=== PATIENT | male | born 1940 | race Caucasian/White ===

== ENCOUNTER → 2017-04-12 | Outpatient (CLI) | payer MEDICARE, BC ==
[2017-04-12 13:52] LABS: ALBUMIN 3.8 GM/DL (3.2-5.2); ALBUMIN/GLOBULIN RATIO 1.15 (1.00-1.93); ALKALINE PHOSPHATASE 47 U/L (45-117); ALT/SGPT 31 U/L (12-78); ANION GAP 8 MEQ/L (8-16); AST/SGOT 27 U/L (15-37); BILIRUBIN,TOTAL 0.5 MG/DL (0.2-1.0); BLOOD UREA NITROGEN 26 MG/DL (7-18); CARBON DIOXIDE LEVEL 30 MEQ/L (21-32); CHLORIDE LEVEL 103 MEQ/L (98-107); CHOLESTEROL LEVEL 147 MG/DL (<200); CREATININE FOR GFR 1.23 MG/DL (0.70-1.30); GLOMERULAR FILTRATION RATE > 60.0 (>42); GLUCOSE, FASTING 158 MG/DL (83-110); POTASSIUM SERUM 4.2 MEQ/L (3.5-5.1); SODIUM LEVEL 141 MEQ/L (136-145); TOTAL PROTEIN 7.1 GM/DL (6.4-8.2); TRIGLYCERIDES LEVEL 430 MG/DL (<150)
[2017-04-13 14:11] LABS: PSA TOTAL 1.1 ng/mL (0.0-4.0)
== END ==
LOC: M WUC 10:25
PROVIDERS: ATTEND Nurse Practitioner Family
DX: I10 Essential (primary) hypertension (principal); Z13.220 Encounter for screening for lipoid disorders; Z12.5 Encounter for screening for malignant neoplasm of prostate

== ENCOUNTER → 2018-04-29 | Outpatient (CLI) | payer MEDICARE, BC ==
[2018-04-29 13:43] LABS: BASO # 0.1 10^3/uL (0.0-0.2); BASO % 0.6 % (0.0-1.0); EOS # 0.4 10^3/uL (0.0-0.50); EOS % 4.3 % (0.0-3.0); HEMATOCRIT 40.7 % (42.0-52.0); HEMOGLOBIN 13.2 g/dl (13.5-17.5); IMMATURE GRANULOCYTE % 0.5 % (0-3.0); LYMPH # 2.1 10^3/uL (1.5-4.5); LYMPH % 24.1 % (24.0-44.0); MEAN CORPUSCULAR HEMOGLOBIN 31.3 pg (27.0-33.0); MEAN CORPUSCULAR HGB CONC 32.4 g/dl (32.0-36.5); MEAN CORPUSCULAR VOLUME 96.4 fl (80.0-96.0); MONO # 0.9 10^3/uL (0.0-0.8); MONO % 10.1 % (0.0-5.0); NEUTROPHILS # 5.3 10^3/uL (1.8-7.7); NEUTROPHILS % 60.4 % (36.0-66.0); PLATELET COUNT, AUTOMATED 147 10^3/uL (150-450); RED BLOOD COUNT 4.22 10^6/uL (4.30-6.10); RED CELL DISTRIBUTION WIDTH 14.7 % (11.5-14.5); WHITE BLOOD COUNT 8.8 10^3/uL (4.0-10.0)
[2018-04-29 14:04] LABS: ALBUMIN 3.8 GM/DL (3.2-5.2); ALBUMIN/GLOBULIN RATIO 1.12 (1.00-1.93); ALKALINE PHOSPHATASE 45 U/L (45-117); ALT/SGPT 23 U/L (12-78); ANION GAP 11 MEQ/L (8-16); AST/SGOT 19 U/L (7-37); BILIRUBIN,TOTAL 0.6 MG/DL (0.2-1.0); BLOOD UREA NITROGEN 22 MG/DL (7-18); CALCIUM LEVEL 9.6 MG/DL (8.8-10.2); CARBON DIOXIDE LEVEL 29 MEQ/L (21-32); CHLORIDE LEVEL 104 MEQ/L (98-107); CHOLESTEROL LEVEL 131 MG/DL (<200); CHOLESTEROL RISK RATIO 3.852 (<5); CREATININE FOR GFR 1.23 MG/DL (0.70-1.30); GLOMERULAR FILTRATION RATE > 60.0 (>42); GLUCOSE, FASTING 113 MG/DL (70-100); HDL CHOLESTEROL 34 MG/DL (>40); LDL CHOLESTEROL 55 MG/DL (<100); NON-HDL-C 97 MG/DL; POTASSIUM SERUM 3.9 MEQ/L (3.5-5.1); SODIUM LEVEL 144 MEQ/L (136-145); TOTAL PROTEIN 7.2 GM/DL (6.4-8.2); TRIGLYCERIDES LEVEL 208 MG/DL (<150)
[2018-04-29 15:57] LABS: ESTIMATED AVERAGE GLUCOSE 157 MG/DL (60-110); HEMOGLOBIN A1c 7.1 %
[2018-04-30 14:20] LABS: PSA TOTAL 1.3 ng/mL (0.0-4.0)
== END ==
LOC: M WUC 08:17
DX: E11.9 Type 2 diabetes mellitus without complications (principal); I10 Essential (primary) hypertension; Z12.5 Encounter for screening for malignant neoplasm of prostate; Z13.220 Encounter for screening for lipoid disorders
CPT/HCPCS: 80053

== ENCOUNTER → 2018-05-01 | Outpatient (CLI) | payer MEDICARE, BC | LOC: M RAD 09:41 | DX: M48.07 Spinal stenosis, lumbosacral region (principal) | CPT/HCPCS: 72131 ==

== ENCOUNTER 2019-07-22 01:23 | Inpatient (IN) | payer MEDICARE, BC ==
[~2019-07-22] VITALS: Ht 172.7 cm; Wt 101.2 kg
[2019-07-22] MEDS ORDERED: PREG75CA2 (01:55)
[2019-07-22] MEDS ORDERED: METO50TA7 PO (01:56)
[2019-07-22] MEDS ORDERED: TRAD5TAB PO (01:56)
[2019-07-22] MEDS ORDERED: FENO145T13 PO (01:56)
[2019-07-22] MEDS ORDERED: LANTINJ4 SQ (01:56)
[2019-07-22] MEDS ORDERED: LISI10TA4 PO (01:56)
[2019-07-22] MEDS ORDERED: ALLO100T PO (01:56)
[2019-07-22] MEDS ORDERED: FURO40TA2 PO (01:56)
[2019-07-22] MEDS ORDERED: GLIM4TAB3 PO (01:56)
[2019-07-22] MEDS ORDERED: SERT50TA29 PO (01:56)
[2019-07-22] MEDS ORDERED: LYRI75CA PO (01:56)
[2019-07-22] MEDS ORDERED: HYDR25TAB PO (01:56)
[2019-07-22] MEDS ORDERED: POTA10CA32 PO (01:56)
[2019-07-22] MEDS ORDERED: PRAD150C6 PO (01:56)
[2019-07-22] MEDS ORDERED: SPIR1CAP INH (01:56)
[2019-07-22] MEDS ORDERED: METOPROLOL TART 50 MG TAB PO ONE (05:30)
--- NOTE | 2019-07-22 05:43 | REPVR ---
PROCEDURE INFORMATION: Exam: CT Head Without Contrast Exam date and time: 07/22/2019 5:24 AM Age: 79 years old Clinical indication: Other: Ear problem; Additional info: CVA - nursing interventions must not delay CT TECHNIQUE: Imaging protocol: Computed tomography of the head without contrast. Radiation optimization: All CT scans at this facility use at least one of these dose optimization techniques: automated exposure control; mA and/or kV adjustment per patient size (includes targeted exams where dose is matched to clinical indication); or iterative reconstruction. Other technique: STROKE PROTOCOL was implemented. COMPARISON: No relevant prior studies available. FINDINGS: Brain: Diffuse moderate cerebral age related volume loss. Moderate patchy low attenuation in the white matter compatible with moderate chronic small vessel ischemic disease. No midline shift, mass, fluid collection, or evidence of hemorrhage. Loss of shankar-white differentiation in the right PATHOLOGY TECHNOLOGIST territory involving the medial right temporal lobe and occipital lobe, evidence of acute infarct. Ventricles: Ventricular enlargement proportional to volume loss. Bones/joints: Unremarkable. No acute fracture. Sinuses: Visualized sinuses are unremarkable. No fluid levels. Mastoid air cells: Visualized mastoid air cells are well aerated. Soft tissues: Unremarkable. IMPRESSION: Loss of shankar-white differentiation in the right PATHOLOGY TECHNOLOGIST territory involving the medial right temporal lobe and occipital lobe, evidence of acute infarct. ASSESSMENT: ASPECTS ([place] Stroke Program Early CT Score) is 10 Electronically signed by: Isaac Ontiveros On 07/22/2019 05:42:41 AM
[2019-07-22 05:57] LABS: BASO # 0.1 10^3/uL (0.0-0.2); BASO % 1.1 % (0.0-1.0); EOS # 0.3 10^3/uL (0.0-0.5); EOS % 3.3 % (0.0-3.0); HEMATOCRIT 42.9 % (42.0-52.0); HEMOGLOBIN 14.1 g/dl (13.5-17.5); LYMPH # 2.5 10^3/uL (1.5-5.0); MEAN CORPUSCULAR HEMOGLOBIN 31.7 pg (27.0-33.0); MEAN CORPUSCULAR HGB CONC 32.9 g/dl (32.0-36.5); MEAN CORPUSCULAR VOLUME 96.4 fl (80.0-96.0); MONO # 0.9 10^3/uL (0.0-0.8); MONO % 11.5 % (0.0-5.0); NEUTROPHILS # 4.3 10^3/uL (1.5-8.5); NEUTROPHILS % 52.9 % (36.0-66.0); PLATELET COUNT, AUTOMATED 128 10^3/uL (150-450); RED BLOOD COUNT 4.45 10^6/uL (4.30-6.10); WHITE BLOOD COUNT 8.2 10^3/uL (4.0-10.0)
[2019-07-22 06:04] LABS: INR 1.2; PROTHROMBIN TIME 14.9 SECONDS (11.8-14.0)
[2019-07-22 06:05] LABS: PARTIAL THROMBOPLASTIN TIME 31.9 SECONDS (25.0-38.4)
[2019-07-22] MEDS ORDERED: ASPIRIN 325 MG TAB PO ONE (06:15)
[2019-07-22 06:27] LABS: BLOOD UREA NITROGEN 22 MG/DL (7-18); CALCIUM LEVEL 9.5 MG/DL (8.8-10.2); CARBON DIOXIDE LEVEL 30 MEQ/L (21-32); CHLORIDE LEVEL 103 MEQ/L (98-107); CK-MB VALUE MASS 2.7 NG/ML (<3.6); CPK CREATINE PHOSPHOKINASE 202 U/L (39-308); CREATININE FOR GFR 1.21 MG/DL (0.70-1.30); GLOMERULAR FILTRATION RATE > 60.0 (>35); GLUCOSE, FASTING 117 MG/DL (70-100); MB/CK RELATIVE INDEX 1.34 (< OR =4); POTASSIUM SERUM 3.7 MEQ/L (3.5-5.1); SODIUM LEVEL 142 MEQ/L (136-145); TROPONIN I 0.05 NG/ML (< 0.10)
[2019-07-22] MEDS ORDERED: LABETALOL HCL 100 MG/20 ML VIAL IV STA (06:45)
[2019-07-22] MEDS: TIOTROPIUM INHALER/CAPSULE (SPIRIVA) INH SCH (08:00)
[2019-07-22] MEDS ORDERED: ASPI81TA26 PO (08:05)
[2019-07-22] MEDS ORDERED: VITA100066 PO (08:05)
[2019-07-22] MEDS ORDERED: MAGN400C PO (08:05)
--- NOTE | 2019-07-22 08:06 | REP ---
PORTABLE CHEST X-RAY: Single view. HISTORY: CVA. No comparison chest. FINDINGS: Monitoring electrodes are seen. A unipolar pacemaker is noted in the right heart via the left side. Moderate cardiomegaly is observed. There are linear opacities in the left perihilar region and in both bases consistent with fibrosis versus plate-like atelectasis. The thoracic aorta somewhat tortuous. Pulmonary vasculature is cephalized. No pleural effusion is seen. IMPRESSION: Linear opacities in both bases consistent with plate-like atelectasis versus fibrosis. Pacemaker. Cardiomegaly with vascular cephalization. Electronically Signed by Óscar Mitchell MD 07/22/2019 05:47 P
[2019-07-22] MEDS ORDERED: METOPROLOL TART 50 MG TAB PO SCH (09:00)
[2019-07-22] MEDS ORDERED: GLUCAGON FOR INJ 1 MG VIAL (J1610) SC PRN (10:00)
[2019-07-22] MEDS ORDERED: GLUCOSE 4 GM CHEW TABLET PO PRN (10:00)
[2019-07-22] MEDS ORDERED: DEXTROSE 50% 50 ML SYRINGE IV PRN (10:00)
[2019-07-22] MEDS: FUROSEMIDE 40 MG TAB PO SCH (10:12)
[2019-07-22] MEDS: PREGABALIN 75 MG CAP(LYRICA) PO SCH ×3 (10:12→20:28)
[2019-07-22] MEDS: allopurinoL 100 MG TAB PO SCH ×2 (10:12→20:28)
[2019-07-22] MEDS: lisinopriL 10 MG TAB PO SCH ×2 (10:12→20:27)
[2019-07-22] MEDS: MAGNESIUM OXIDE 400 MG TAB (MAG-OX) PO SCH ×2 (10:12→20:28)
[2019-07-22] MEDS: POTASSIUM CHLORIDE 10 MEQ SR TABLET PO SCH ×2 (10:13→20:27)
[2019-07-22] MEDS: hydroCHLOROthiazide 25 MG TAB PO SCH (10:13)
--- NOTE | 2019-07-22 11:04 | HPE ---
DATE OF ADMISSION: 07/22/2019 PRIMARY CARE PROVIDER: Dr. 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 HISTORY: Marko Fischer is an 79-year-old on Pradaxa for thromboembolic prophylaxis for atrial fibrillation. He was holding his Pradaxa in anticipation of a surgical procedure on his back in the coming week. Last night he developed the abrupt onset of a severe throbbing headache that felt "burning." He then found himself unable to use phone as his vision seemed to be affected by this. He knew that "things weren't right," but delayed presentation to the emergency room until this morning when he already had advance on CT scan of acute infarct in the distribution of the right posterior cerebral artery involving the medial right temporal lobe and occipital lobe. He has a history of atrial fibrillation. He was on Pradaxa for this. It was being held for his procedure. He has a history of hypertensive heart disease, type 2 diabetes, hyperlipidemia, abdominal aortic aneurysm, hyperlipidemia, gout and diabetic polyneuropathy. He also may have some chronic obstructive pulmonary disease (COPD) as he is on Spiriva. REVIEW OF SYSTEMS: No palpitations, chest pain or syncope. He denies focal weakness or hemisensory problems. SURGICAL HISTORY: Has a transpubic prostate operation 09/2010. He had colonoscopy by Dr. Roberts in 2014. He had a total left hip 2015. Pacemaker, date unknown. SOCIAL HISTORY: Nonsmoker. No excessive alcohol. Retired from [employer]. He was and then in March of 2010 he his high school [employer], which is a very sweet story he shared in great detail. FAMILY HISTORY: Father of heart disease. Mother of heart disease. He has some siblings with hypertension and diabetes. ALLERGIES: SULFA. MEDICATIONS: - allopurinol 100 mg twice a day - aspirin 81 mg daily - vitamin D 1000 units at bedtime - Pradaxa 150 mg twice a day - fenofibrate 145 mg at bedtime - furosemide 40 mg daily - glimepiride 4 mg twice a day - hydrochlorothiazide 25 mg daily - Lantus insulin 40 units at bedtime - Tradjenta 5 mg by mouth daily - lisinopril 10 mg twice a day - MagOx 400 mg twice a day - metoprolol tartrate 50 mg twice a day - potassium chloride 30 mEq twice a day - Lyrica 75 mg three times a day - sertraline 50 mg at bedtime - Spiriva one inhalation daily PHYSICAL EXAMINATION: Blood pressure 159/84, pulse 69, respiratory rate 16, afebrile. GENERAL APPEARANCE: Alert and conversant in no distress. No facial droop or weakness. Speech is fluent and well demonstrated. Pupils equal and reactive to light. Tympanic membranes and oropharynx benign. He has left visual field defect on direct confrontation. Lungs clear. Heart regular rate and rhythm, 1/6 systolic ejection murmur. Abdomen soft, nontender, no masses. Extremities no clubbing, cyanosis or edema. He has normal strength, reflexes and sensation in the upper and lower extremities. Telemetry showed paced rhythm or atrial fibrillation. LABS: White count 8.2, hemoglobin 14.1, platelets 128. Sodium 142, potassium 3.7, BUN 22, creatinine 1.2, glucose 117. Chest x-ray just showed some atelectasis and the pacemaker. CT of the brain showed acute stroke distribution in the right posterior cerebral artery as summarized above. No bleeding. IMPRESSION: 1. Stroke, probably embolic, acute onset associated with headache. The patient had been off his anticoagulant. The case has been discussed with Dr. Margarita Mcdonald, who will see the patient for neurological consultation. Advises holding of reinitiating anticoagulation until the repeat CT scan of the brain done later today shows no extension of the stroke or any bleeding into the area of stroke. Continue aspirin. Physical therapy has been ordered. He does have a visual field defect, which should prohibit driving until he is cleared after discharge. 2. Atrial fibrillation. His rate is controlled. Hold the Pradaxa for now. With the embolic event while holding Pradaxa, would advise bridging with Lovenox or other anticoagulant in the future should he have a procedure that requires holding his Pradaxa. 3. Hypertensive heart disease. Blood pressure goal is 140-180 in the acute stroke period. Medications have been ordered. 4. Hyperlipidemia. The patient is not on a statin. I do not see that it is listed as an allergy, including review of outpatient records that were available from a referral to the wound clinic a few years go. This stroke was probably embolic and not atherosclerotic. He does have a history of aortic aneurysm. Will start moderate intensity statin (age over 75) with atorvastatin 40 mg daily and we will discontinue his fenofibrate. 5. Diabetes. Reduce the dose of the basal insulin while on an enforced diabetic diet. Sliding scale insulin with coverage ordered. Hold his oral agents for now. Hypoglycemic protocol ordered. 6. History of gout. Continue allopurinol 100 mg twice a day. 7. History of abdominal aortic aneurysm. Apparently he has not had an ultrasound in the last year to monitor for this. Start statin therapy with atorvastatin. Ultrasound of the aorta ordered. 8. Diabetic polyneuropathy. Continue Lyrica and refill sertraline.
--- NOTE | 2019-07-22 11:21 | REP ---
CAROTID ULTRASOUND: Real-time ultrasound evaluation and duplex Doppler interrogation of the extracranial carotid vasculature is performed. There is mild plaquing and narrowing in both carotid bulbs extending into the internal and external carotid arteries. Luminal narrowing is less than 50%. There is no evidence of hemodynamically significant stenosis of either internal carotid artery. Normal flow velocities are seen. The vertebral arteries demonstrate normal direction of flow. RIGHT LEFT Peak systolic velocity ICA 59.6 cm/s 68.3 cm/s End diastolic velocity ICA 19.6 cm/s 21.2 cm/s Peak systolic velocity CCA 52.6 cm/s 53 cm/s Peak systolic velocity ECA 89.5 cm/s 126.6 cm/s ICA/CCA ratio 1.13 1.29 IMPRESSION: Bilateral luminal narrowing of the internal carotid arteries less than 50%. No evidence of hemodynamically significant stenosis. Electronically Signed by Neal Ngo MD 07/22/2019 11:12 A
--- NOTE | 2019-07-22 11:29 | REP ---
ULTRASOUND ABDOMINAL AORTA: Real-time sonographic evaluation of abdominal aorta performed. Study is limited due to patient body habitus and bowel gas. Maximum AP diameter of the proximal abdominal aorta is 3.2 cm. Abdominal aorta at the level of the renal arteries is not visualized. Just distal to that, maximum AP diameter is 3.0 cm. Distal abdominal aorta demonstrates maximum AP diameter at 3.8 cm and transverse 4.2 cm. Common iliac arteries are ectatic, right measuring 2.0 x 1.5 cm and left 2.1 x 1.7 cm. IMPRESSION: Mild aneurysmal dilatation distal abdominal aorta 3.8 x 4.2 cm. Ectatic common iliac arteries. Study limited due to patient body habitus and bowel gas. Electronically Signed by Neal Ngo MD 07/22/2019 07:57 P
[2019-07-22] MEDS: HumaLOG INSULIN (NovoLOG) PER UNIT SC SCH ×3 (13:38→20:29)
[2019-07-22 14:00] VITALS: BP 145/60
[2019-07-22] MEDS ORDERED: SLF 3 ML SYR IV PRN (15:00)
[2019-07-22 16:00] VITALS: BP 140/72
--- NOTE | 2019-07-22 16:43 | REP ---
CT brain: 07/22/2019. Indication: Stroke. Comparison: Earlier today. Technique: Unenhanced axial CT images of the brain were obtained from skull base to vertex. Findings: The right CONSUMER INSIGHT MANAGER infarction continues to evolve without hemorrhagic transformation or worsening mass effect. No new cortical infarctions are detected. Volume loss and sequelae of chronic microangiopathic ischemic disease are redemonstrated. There is no hydrocephalus or shift of the midline structures. Impression: Evolving right CONSUMER INSIGHT MANAGER infarction without hemorrhagic conversion or significant mass effect. Electronically Signed by Benedict Washington DO 07/22/2019 04:34 P
[2019-07-22 20:00] VITALS: BP 140/70
[2019-07-22] MEDS: SERTRALINE HCL 50 MG TAB PO SCH (20:27)
[2019-07-22] MEDS: VITAMIN D 1,000 INTERNATIONAL UNITS TABLET PO SCH (20:27)
[2019-07-22] MEDS: METOPROLOL TART 50 MG TAB PO SCH (20:28)
[2019-07-22] MEDS ORDERED: FENOFIBRATE 145 MG TAB (TRICOR) PO SCH (21:00)
[2019-07-22] MEDS ORDERED: LEVEMIR (INSULIN DETEMIR) 1 UNITS/0.01ML SC SCH (21:00)
[2019-07-22] MEDS ORDERED: ATORVASTATIN 20 MG TAB PO SCH (21:00)
[2019-07-22] MEDS: SLF 3 ML SYR IV SCH (22:32)
[2019-07-23] VITALS: BP 164/82
[2019-07-23 04:00] VITALS: BP 158/86
[2019-07-23] MEDS: SLF 3 ML SYR IV SCH ×3 (05:29→21:08)
[2019-07-23 05:56] LABS: HEMATOCRIT 39.9 % (42.0-52.0); HEMOGLOBIN 13.1 g/dl (13.5-17.5); MEAN CORPUSCULAR HEMOGLOBIN 31.9 pg (27.0-33.0); MEAN CORPUSCULAR HGB CONC 32.8 g/dl (32.0-36.5); MEAN CORPUSCULAR VOLUME 97.1 fl (80.0-96.0); PLATELET COUNT, AUTOMATED 130 10^3/uL (150-450); RED BLOOD COUNT 4.11 10^6/uL (4.30-6.10); WHITE BLOOD COUNT 8.8 10^3/uL (4.0-10.0)
[2019-07-23 06:01] LABS: BLOOD UREA NITROGEN 19 MG/DL (7-18); CALCIUM LEVEL 9.4 MG/DL (8.8-10.2); CARBON DIOXIDE LEVEL 31 MEQ/L (21-32); CHLORIDE LEVEL 103 MEQ/L (98-107); GLOMERULAR FILTRATION RATE > 60.0 (>35); GLUCOSE, FASTING 158 MG/DL (70-100); POTASSIUM SERUM 3.8 MEQ/L (3.5-5.1); SODIUM LEVEL 141 MEQ/L (136-145)
--- NOTE | 2019-07-23 08:17 | ECHO ---
DATE OF PROCEDURE: 07/22/2019 AGE: 79. GENDER: Male. HEIGHT: 68 inches. WEIGHT: 227 pounds. Body surface area 2.15 meters squared. LOCATION: Inpatient in the progressive care unit (PCU), room 3223. REFERRING PHYSICIAN: Dr. Jarek Martin. INDICATION: TIA - cardiac source of embolic material? MEASUREMENTS: 2-D measurements: RV - 5.2 cm LV - 6.2 cm Septum: 1.4 cm Posterior wall 1.4 cm Aortic root 3.6 cm LA - 5.6 cm LVEF of 45% Doppler measurements: AV - 1.9 meters per second LVOT - 1.0 meters per second LVOT diameter 2.1 cm MV-E 74 Early mitral deceleration time 193 milliseconds E prime medial 6.6, E prime lateral 5.7 Average E/E prime ratio 12/PCWP - 16.8 mmHg PV - 0.8 meters per second Pulmonary artery acceleration time 87 milliseconds RVSP 64 mmHg IVC - 2.6 cm COMMENT: Underlying atrial fibrillation with consistent ventricular paced rhythm. Paced QRS complexes with LVEDP configuration. M-mode and two-dimensional echocardiography was performed with pulsed, continuous wave, color flow and tissue Doppler studies. At least moderately dilated and symmetrically hypertrophied left ventricle with distal septal and apical akinesis related to right ventricular pacing but other wall motion was normal. At least mild impairment of global resting systolic function. Severely dilated left atrium with current estimated mean left atrial pressure mildly increased. Mild to moderately dilated right ventricle with slightly reduced free wall motion and Doppler evidence of severe pulmonary hypertension. Prominently dilated right atrium and inferior vena cava with reduced respiratory collapse in keeping with an elevated central venous pressure / right heart failure. Moderate aortic valvular sclerosis without stenosis and only trace insufficiency. Normal aortic dimensions. Moderate mitral annular calcification with slightly thickened mitral leaflets but adequate leaflet excursion and no posterior systolic buckling. Mild mitral insufficiency. Normal appearing tricuspid valve with severe tricuspid insufficiency. Pacing lead could be visualized traversing right heart structures. No separate intracardiac mass. No pericardial effusion. If a cardiac source of embolic material is seriously suspect, perhaps a transesophageal echocardiogram would be more useful. Alexis Ray MD [facility]
[2019-07-23] MEDS: allopurinoL 100 MG TAB PO SCH ×2 (08:43→20:23)
[2019-07-23] MEDS: HumaLOG INSULIN (NovoLOG) PER UNIT SC SCH ×4 (08:43→20:13)
[2019-07-23] MEDS: POTASSIUM CHLORIDE 10 MEQ SR TABLET PO SCH ×2 (08:43→20:23)
[2019-07-23] MEDS: MAGNESIUM OXIDE 400 MG TAB (MAG-OX) PO SCH ×2 (08:43→20:23)
[2019-07-23] MEDS: PREGABALIN 75 MG CAP(LYRICA) PO SCH ×3 (08:43→20:23)
[2019-07-23] MEDS: lisinopriL 10 MG TAB PO SCH ×2 (08:44→20:23)
[2019-07-23] MEDS: ASPIRIN 81 MG ENTERIC TAB PO SCH (08:44)
[2019-07-23] MEDS: hydroCHLOROthiazide 25 MG TAB PO SCH (08:44)
[2019-07-23] MEDS: METOPROLOL TART 50 MG TAB PO SCH ×2 (08:44→20:22)
[2019-07-23] MEDS: FUROSEMIDE 40 MG TAB PO SCH (08:45)
[2019-07-23] MEDS: TIOTROPIUM INHALER/CAPSULE (SPIRIVA) INH SCH (09:19)
[2019-07-23] MEDS: ACETAMINOPHEN 500 MG TAB PO PRN (09:41)
[2019-07-23 10:00] VITALS: BP 172/76
--- NOTE | 2019-07-23 10:17 | CR ---
DATE OF CONSULTATION: 07/22/2019 CONSULTATION REPORT FOR: Dr. Jarek Martin REASON FOR CONSULTATION: Acute ischemic stroke of the right posterior cerebral artery. The patient is an 79-year-old male who was on Pradaxa for treatment of atrial fibrillation. The patient had to stop Pradaxa within the last week for an upcoming surgery this for his lumbar spine. The patient unfortunately developed a sense of severe headache and buzzing in his ear. The patient states that he let his know how he was feeling. His states that he usually he is melodramatic and states that he has always having a stroke though he is not. The patient was taken via emergency medical services (EMS) to the hospital. In the hospital, the patient was evaluated and later was told that he was having some sort of visual field cut. Head CT was obtained which eventually showed that the stroke had already occurred resulting in a right posterior cerebral artery (BONE CHAR PULLER) territory stroke with left-sided homonymous hemianopsia. The patient unfortunately did not clearly identify stroke symptoms. EMS evaluation at his home, he states that told him that he less likely is having a stroke given a brief evaluation at that time. The patient was unable to receive tissue plasma activator (t-PA) due to the stroke being identified greater than four and a half hours later. The patient does have a history of type 2 diabetes, hyperlipidemia. He has a small abdominal aortic aneurysm. The patient was taking aspirin 81 mg daily it seems at home. His stroke is of reasonable size. Therefore, anticoagulation will not be started immediate. We will probably plan on repeating the head CT later at the end of the week and resuming anticoagulation at that time. In the meantime, the patient will remain on aspirin 81 mg daily. Both the patient, the patient's and daughter who is an employee of [employer] are aware that starting anticoagulation too soon may result in hemorrhagic conversion. At the present time, the patient denies any change in sensation or strength in the arms and legs. He denies any headache. He does have visual field loss which is pretty profound at this time. REVIEW OF SYSTEMS: A 14-point review of systems obtained and is negative except as per history of present illness (HPI). FAMILY HISTORY: Father and mother with heart disease. Siblings with hypertension and diabetes. ALLERGIES: SULFA. PRESENT MEDICATIONS: - aspirin 81 mg by mouth daily - Pradaxa 150 mg by mouth twice a day (the patient had this held within the last few days due to upcoming surgery) - allopurinol 100 mg by mouth twice a day - vitamin D 1000 units by mouth at bedtime - fenofibrate 145 mg by mouth at bedtime - furosemide 40 mg by mouth daily - glimepiride 4 mg by mouth twice a day - hydrochlorothiazide 25 mg by mouth daily - Lantus 40 units at bedtime - Tradjenta 5 mg daily - lisinopril 10 mg by mouth twice a day - magnesium oxide 400 mg by mouth twice a day - metoprolol tartrate 50 mg by mouth twice a day - potassium chloride 30 mEq by mouth twice a day - Lyrica 75 mg by mouth three times a day - sertraline 50 mg by mouth at bedtime - Spiriva inhaled daily PAST MEDICAL HISTORY: 1. Type 2 diabetes. 2. Hypertension. 3. Hyperlipidemia. PAST SURGICAL HISTORY: 1. History of transpubic prostate operation in September 2010. 2. Colonoscopy 2014. 3. Total hip replacement 2014. 4. Pacemaker placement. SOCIAL HISTORY: The patient denies use of tobacco, alcohol or illicit drugs. PHYSICAL EXAMINATION: Blood pressure is 140/72, pulse rate 72, respiratory rate is 18, temperature is 97.1 degrees Fahrenheit, oxygenation 93% on room air. Current height is 5 feet, 8 inches. Current weight is 103 kg. The patient is awake, alert, oriented to person, place and time. Speech, language, comprehension and repetition are intact. Pupils are both postsurgical. Extraocular movements are intact in all directions without nystagmus. The patient has significant visual field loss with left-sided homonymous hemianopsia. Sensation V1, V2, V3 is intact to light touch. No facial asymmetry to activation. Palate elevates symmetrically. Tongue is midline. No weakness of sternocleidomastoids bilaterally. Hearing is subjectively equal to finger rub. There is no pronator drift. Strength is 5/5 including bilateral deltoids, biceps, triceps, quadriceps, anterior tibialis, iliopsoas. Sensation is intact to light touch in all four extremities. Coordination without any gross ataxia or dysmetria. Gait deferred. ASSESSMENT: An 79-year-old male with sudden onset of severe headache with left-sided homonymous hemianopsia resulting from right posterior cerebral artery (BONE CHAR PULLER) arterial occlusion stroke. Stroke resulting in discontinuation of Pradaxa prior to upcoming surgery from known history of atrial fibrillation. PLAN: 1. Continue aspirin 81 mg by mouth daily. Continue Lipitor 40 mg by mouth daily, consider lower dosage in the future as the patient's cholesterol numbers were extremely well-controlled off of the medication. Recommend a repeat head CT at the end of the week. If stable then resumed Pradaxa for stroke prevention. Recommend waiting a few days given risk of hemorrhagic conversion given reasonable size of right posterior cerebral artery (BONE CHAR PULLER) territorial stroke involving the medial temporal lobe and occipital lobe on the right. 2. Optimize diabetes, hypertension, and hyperlipidemia. 3. Obtain echocardiogram. 4. Continue telemetry monitoring. Physical therapy (PT)/occupational therapy (OT) evaluation. History obtained from both the patient, the patient's and the patient's daughter who is an employee of the hospital.
--- NOTE | 2019-07-23 11:41 | IPN ---
DATE: 07/23/2019 Marko has a bit of a headache. It recurred this morning. He is not having any focal deficits with it and in fact his left visual field loss seems to be slightly improved. No focal weakness. No neck stiffness. PHYSICAL EXAMINATION: VITAL SIGNS: Blood pressure 172/76, pulse 72, respiratory rate 22, 93% oxygen saturation. GENERAL APPEARANCE: Alert, conversant, in no distress. No facial droop or weakness. Left visual field loss is still grossly present. LUNGS: Clear. HEART: Regular rate and rhythm. ABDOMEN: Soft, nontender. Trace peripheral edema. Normal strength in the arms and legs. Normal reflexes. Normal sensation. LABORATORY DATA: Electrolytes are unremarkable. Renal function is normal. CBC is unremarkable. Hemoglobin is 13.1. Blood sugars have been around 200. IMPRESSION: 1. Stroke, right posterior cerebral artery with left visual field loss. CT of the brain was repeated yesterday. It shows a fairly extensive stroke. The case has been discussed with Dr. Mcdonald. Appreciate his input. He advises that we use aspirin until 07/25/2019 and then restart the patient's Pradaxa and discontinue the aspirin, observe him overnight, and if he does not have any evidence of a bleeding event, restarting his Pradaxa, and then send him home on 07/26/2019. 2. Atrial fibrillation. His rate is controlled. He is off his Pradaxa for now. 3. Diabetes. I have reduced his basal insulin dose on admission as he is on an enforced diabetic diet. I also held his Tradjenta and glimepiride. I will increase his basal insulin dose today and continue with sliding scale. 4. Hypertensive heart disease with cerebrovascular disease. I will add amlodipine 5 mg daily. Continue his lisinopril 10 mg twice a day, hydrochlorothiazide 25 mg daily, furosemide 40 mg daily, metoprolol tartrate 50 mg twice a day. 5. Hyperlipidemia. We stopped his fenofibrate and started statin therapy with atorvastatin 40 mg daily, dose adjusted based on age. 6. History of abdominal aortic aneurysm. We did an ultrasound and it showed the aneurysm present at 3.8 x 4.2 cm. He follows with vascular surgery as an outpatient.
[2019-07-23 12:00] VITALS: BP 157/83
[2019-07-23] MEDS: amLODIPine 5 MG TAB PO SCH (12:14)
[2019-07-23 16:00] VITALS: BP 169/81
--- NOTE | 2019-07-23 19:10 | IPN ---
DATE: 07/23/2019 I spoke to Marko's daughter, Yoly. They were concerned about his being on a statin. Apparently he had "low cholesterol" in the past. He is currently on a fibrate. We discussed the fact he has an abdominal aortic aneurysm. He also is a diabetic who has had a stroke. These were all strong indications for statin therapy regardless of level of cholesterol. Also, more recent lipid guidelines did not recommend using fibrates by themselves, and the more appropriate approach for a diabetic patient with an aneurysm who has had a stroke would be on a statin and not taking a fibrate. We did agree to reduce the statin from the recommended dose of 40 mg atorvastatin daily to 20 mg daily with their understanding that most recent [place] [employer]/[place] [employer] guidelines of 2013 would recommend atorvastatin 40 mg daily.
[2019-07-23 20:00] VITALS: BP 160/82
[2019-07-23] MEDS: LEVEMIR (INSULIN DETEMIR) 1 UNITS/0.01ML SC SCH (20:22)
[2019-07-23] MEDS: VITAMIN D 1,000 INTERNATIONAL UNITS TABLET PO SCH (20:22)
[2019-07-23] MEDS: ATORVASTATIN 20 MG TAB PO SCH (20:23)
[2019-07-23] MEDS: SERTRALINE HCL 50 MG TAB PO SCH (20:23)
[2019-07-23] MEDS: LABETALOL HCL 100 MG/20 ML VIAL IV PRN (23:45)
[2019-07-24] VITALS (13 sets, daily range): BP systolic 156–218; BP diastolic 66–90
[2019-07-24] MEDS: ONDANSETRON 4MG/2ML VIAL (J2405) IV PRN ×2 (01:07→10:44)
[2019-07-24] MEDS: LABETALOL HCL 100 MG/20 ML VIAL IV PRN (02:00)
[2019-07-24] MEDS: METOPROLOL TART 50 MG TAB PO SCH ×2 (04:34→20:48)
[2019-07-24] MEDS: lisinopriL 10 MG TAB PO SCH ×2 (04:35→20:50)
[2019-07-24] MEDS: amLODIPine 5 MG TAB PO SCH (04:35)
[2019-07-24] MEDS: SLF 3 ML SYR IV SCH ×3 (05:02→21:13)
[2019-07-24] MEDS: ACETAMINOPHEN 500 MG TAB PO PRN (05:52)
[2019-07-24 06:30] LABS: HEMATOCRIT 42.4 % (42.0-52.0); HEMOGLOBIN 13.8 g/dl (13.5-17.5); MEAN CORPUSCULAR HEMOGLOBIN 31.7 pg (27.0-33.0); MEAN CORPUSCULAR HGB CONC 32.5 g/dl (32.0-36.5); MEAN CORPUSCULAR VOLUME 97.2 fl (80.0-96.0); PLATELET COUNT, AUTOMATED 124 10^3/uL (150-450); RED BLOOD COUNT 4.36 10^6/uL (4.30-6.10); WHITE BLOOD COUNT 10.2 10^3/uL (4.0-10.0)
[2019-07-24 06:49] LABS: CALCIUM LEVEL 9.3 MG/DL (8.8-10.2); CREATININE FOR GFR 1.31 MG/DL (0.70-1.30); GLOMERULAR FILTRATION RATE 55.9 (>35); POTASSIUM SERUM 4.2 MEQ/L (3.5-5.1)
[2019-07-24] MEDS: TIOTROPIUM INHALER/CAPSULE (SPIRIVA) INH SCH (07:23)
[2019-07-24] MEDS: hydroCHLOROthiazide 25 MG TAB PO SCH (08:38)
[2019-07-24] MEDS: ASPIRIN 81 MG ENTERIC TAB PO SCH (08:38)
[2019-07-24] MEDS: POTASSIUM CHLORIDE 10 MEQ SR TABLET PO SCH ×2 (08:39→20:49)
[2019-07-24] MEDS: allopurinoL 100 MG TAB PO SCH ×2 (08:39→20:49)
[2019-07-24] MEDS: FUROSEMIDE 40 MG TAB PO SCH (08:39)
[2019-07-24] MEDS: PREGABALIN 75 MG CAP(LYRICA) PO SCH ×3 (08:39→20:49)
[2019-07-24] MEDS: MAGNESIUM OXIDE 400 MG TAB (MAG-OX) PO SCH ×2 (08:39→20:49)
[2019-07-24] MEDS: HumaLOG INSULIN (NovoLOG) PER UNIT SC SCH ×4 (08:40→20:48)
[2019-07-24] MEDS ORDERED: FLUBLOK(EGG FREE)(QUAD)INFLUENZA VACC 0.5ML SYRINGE (90682)18YRS&OLDER IM ONE (09:00)
[2019-07-24] MEDS: **hydrALAZINE** 10 MG TAB PO SCH ×3 (10:46→20:49)
--- NOTE | 2019-07-24 10:49 | IPN ---
DATE: 07/24/2019 Marko feels "not well." He has a headache and says he feels sick to his stomach and has thrown up. No neck stiffness or any worsening neurologic symptoms. PHYSICAL EXAM: 176/90, pulse of 78. General Appearance: He is alert and conversant. His visual field deficit persists. No facial or weakness. Lungs: Clear. Heart: Regular rate and rhythm. Abdomen: Soft, nontender. No masses. Normal strength in the arms and legs. Nonfocal exam. LABS: White count 10.2, hemoglobin 13.8, platelets 124. Sodium 136, potassium 4.2. BUN 23, creatinine 1.3, glucose 270. IMPRESSION: 1. Stroke, right posterior cerebral artery distribution with left visual field loss. I am concerned about the headache and the elevated blood pressure. I want to make sure that he has not rebled. Stat CT of the brain ordered. 2. Atrial fibrillation. His rate is controlled. We are holding off Pradaxa. Plan to restart this on 07/25/2019 if the patient is stable. 3. Hypertension. His blood pressure is elevated. We will adjust his medications today. 4. Diabetes. Blood sugar is mildly elevated, which is okay in the short-term. He is on basal insulin sliding scale. 5. Abdominal aortic aneurysm. This measured at 3.8 x 4.2 cm to establish a baseline. 6. Hyperlipidemia. As noted yesterday, discussion with family and they agree to allow him to be on the statin as recommended by all cholesterol guidelines for patients with abdominal aortic aneurysm, diabetic with a stroke.
--- NOTE | 2019-07-24 10:52 | REP ---
CT brain: 07/24/2019. Indication: Stroke. Comparison: 2 days earlier. Technique: Unenhanced axial CT images of the brain were obtained from skull base to vertex with coronal reconstructions provided. Findings: The right COLLEGE SCOUTING COORDINATOR infarction continues to evolve without hemorrhagic transformation or significant mass effect. No new infarctions are detected. Volume loss, chronic small vessel disease and intracranial atherosclerotic disease are redemonstrated. Impression: Evolving right COLLEGE SCOUTING COORDINATOR infarction without hemorrhagic transformation or significant mass effect. Electronically Signed by Benedict Washington DO 07/24/2019 10:43 A
[2019-07-24] MEDS: LEVEMIR (INSULIN DETEMIR) 1 UNITS/0.01ML SC SCH (20:47)
[2019-07-24] MEDS: VITAMIN D 1,000 INTERNATIONAL UNITS TABLET PO SCH (20:48)
[2019-07-24] MEDS: ATORVASTATIN 20 MG TAB PO SCH (20:50)
[2019-07-24] MEDS: SERTRALINE HCL 50 MG TAB PO SCH (20:50)
--- NOTE | 2019-07-24 22:04 | ECGEPIP ---
[facility] - ED Test Date: 2019-07-22 Pat Name: KENNA CROSS Department: Room: [place] [address] Gender: Male Dentist: DEANNA : 1940 Requested By: HEBER Antunez Order Number: [id number] Reading MD: Isaac Cedillo Measurements Intervals Altha Rate: 68 P: WA: 0 QRS: -41 QRSD: 176 T: -64 QT: 457 QTc: 489 Interpretive Statements Atrial fibrillation ELECTRONIC VENTRICULAR PACEMAKER -- CONTOUR ANALYSIS BASED ON INTRINSIC RHYTHM Left axis deviation Prolonged QTc interval RIGHT BUNDLE BRANCH BLOCK LEFT VENTRICULAR HYPERTROPHY AND ST-T CHANGE POSSIBLE SEPTAL MYOCARDIAL INFARCTION, OF INDETERMINATE AGE Comparison tracing not on file Electronically Signed on 07-24-2019 22:04:14 EST by Isaac Cedillo
[2019-07-25] VITALS (7 sets, daily range): BP systolic 142–180; BP diastolic 62–84
[2019-07-25] MEDS: SLF 3 ML SYR IV SCH ×3 (05:15→20:51)
[2019-07-25 05:33] LABS: HEMOGLOBIN 13.5 g/dl (13.5-17.5); MEAN CORPUSCULAR HEMOGLOBIN 31.3 pg (27.0-33.0); MEAN CORPUSCULAR HGB CONC 32.1 g/dl (32.0-36.5); MEAN CORPUSCULAR VOLUME 97.4 fl (80.0-96.0); PLATELET COUNT, AUTOMATED 130 10^3/uL (150-450); RED BLOOD COUNT 4.31 10^6/uL (4.30-6.10); WHITE BLOOD COUNT 13.3 10^3/uL (4.0-10.0)
[2019-07-25 05:50] LABS: BLOOD UREA NITROGEN 24 MG/DL (7-18); CALCIUM LEVEL 9.1 MG/DL (8.8-10.2); CARBON DIOXIDE LEVEL 29 MEQ/L (21-32); CHLORIDE LEVEL 98 MEQ/L (98-107); CREATININE FOR GFR 1.23 MG/DL (0.70-1.30); GLOMERULAR FILTRATION RATE > 60.0 (>35); GLUCOSE, FASTING 225 MG/DL (70-100); POTASSIUM SERUM 3.8 MEQ/L (3.5-5.1); SODIUM LEVEL 136 MEQ/L (136-145)
[2019-07-25] MEDS: TIOTROPIUM INHALER/CAPSULE (SPIRIVA) INH SCH (07:28)
[2019-07-25] MEDS: amLODIPine 5 MG TAB PO SCH ×2 (09:11→20:39)
[2019-07-25] MEDS: POTASSIUM CHLORIDE 10 MEQ SR TABLET PO SCH ×2 (09:12→20:38)
[2019-07-25] MEDS: FUROSEMIDE 40 MG TAB PO SCH (09:12)
[2019-07-25] MEDS: METOPROLOL TART 50 MG TAB PO SCH ×2 (09:12→20:37)
[2019-07-25] MEDS: MAGNESIUM OXIDE 400 MG TAB (MAG-OX) PO SCH ×2 (09:12→20:38)
[2019-07-25] MEDS: ASPIRIN 81 MG ENTERIC TAB PO SCH (09:12)
[2019-07-25] MEDS: PREGABALIN 75 MG CAP(LYRICA) PO SCH ×3 (09:12→20:38)
[2019-07-25] MEDS: allopurinoL 100 MG TAB PO SCH ×2 (09:12→20:39)
[2019-07-25] MEDS: **hydrALAZINE** 10 MG TAB PO SCH ×3 (09:13→20:39)
[2019-07-25] MEDS: lisinopriL 10 MG TAB PO SCH ×2 (09:13→20:37)
[2019-07-25] MEDS: hydroCHLOROthiazide 25 MG TAB PO SCH (09:13)
[2019-07-25] MEDS: HumaLOG INSULIN (NovoLOG) PER UNIT SC SCH ×4 (09:14→20:51)
--- NOTE | 2019-07-25 11:46 | REP ---
REASON FOR EXAM: Leukocytosis. COMPARISON: 07/22/2019, the latest prior. There is cardiomegaly status quo. There is a diffuse increase in the interstitial markings throughout the lung casillas with evidence of pulmonary vascular redistribution. This represents a change from the prior exam. The single chamber bipolar pacemaker device is unchanged. The discoid subsegmental atelectatic change in the left upper lobe is unchanged. The pleural angles are again seen to be sharp. There is no change in the osseous structures. IMPRESSION:Findings as described above. Consistent with interstitial edema. Etiology should be clinically evaluated for. No patchy opacities have developed since the last exam. Electronically Signed by Roberto Liang DO 07/25/2019 12:16 P
--- NOTE | 2019-07-25 13:01 | IPN ---
DATE: 07/25/2019 Marko is seen in progressive care unit (PCU). His was there and we had a long visit and answered all of their questions. He has had a stroke. He is feeling, "off, and has not felt well in the last few days. He does have a bit of a white count today but there is no fever, chills, shortness of breath. His atrial fibrillation has been well managed. His heart rate is controlled. Blood pressure has come under better control recently as well. Echocardiogram showed dilated left atrium 56 mm, ejection fraction depressed at 45%, aortic sclerosis without stenosis. He has dilated right ventricle, Doppler evidence of severe pulmonary hypertension (the patient has obstructive sleep apnea on CPAP). PHYSICAL EXAMINATION: 168/84, pulse 72, 99.2 degrees, 93% oxygen saturation on room air. GENERAL APPEARANCE: Alert, conversant and no distress. Looks fatigued, looks a little depressed. HEENT: Unremarkable. Visual field cut unchanged. LUNGS: Clear. HEART: Regular rate and rhythm. 1/6 systolic ejection murmur. ABDOMEN: Soft, nontender. No masses. No peripheral edema. LABORATORIES: White count 13,000, hemoglobin 13.5, platelets 130, sodium 136, potassium 3.8, BUN 24, creatinine 1.3, glucose 231. Chest x-ray, urine culture ordered. IMPRESSION: 1. 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 I spoke with his and she understands that he is not to drive until cleared by an armature inspector. He needs visual field testing in an ophthalmology office. Restarting Pradaxa today per recommendations of neurology. We will stop aspirin after today. 2. Hypertension. Blood pressure is mildly elevated. Medications have been adjusted. 3. Leukocytosis. Chest x-ray, urinalysis and urine culture ordered. 4. Diabetes. Increase basal insulin dose. 5. Pulmonary hypertension. The patient's daughter is a nurse in the hospital and is asking for Dr. Bearden to see the patient for pulmonary hypertension. This is primarily a pulmonary issue and not a cardiac issue, I do not think that he has a significant cardiac issue requiring inpatient cardiology consultation and Dr. Bearden is not available this weekend as he is not circulation manager. The patient and his agree to defer cardiology evaluation in the hospital at this time.
[2019-07-25] MEDS: LABETALOL HCL 100 MG/20 ML VIAL IV PRN (14:33)
[2019-07-25] MEDS: FUROSEMIDE 100 MG/10 ML VIAL (J1940) IV SCH (18:05)
[2019-07-25 19:09] LABS: APPEARANCE, URINE CLEAR (CLEAR); BACTERIA, URINE AUTO NEGATIVE (NEGATIVE); BILIRUBIN, URINE AUTO NEGATIVE (NEGATIVE); BLOOD, URINE BLOOD NEGATIVE (NEGATIVE); COLOR, URINE YELLOW (YELLOW); GLUCOSE, URINE (UA) AUTO 3+ mg/dL (NEGATIVE); KETONE, URINE AUTO NEGATIVE (NEGATIVE); LEUKOCYTE ESTERASE, URINE AUTO NEGATIVE (NEGATIVE); NITRITE, URINE AUTO NEGATIVE (NEGATIVE); PROTEIN, URINE AUTO 1+ mg/dL (NEGATIVE); RBC, URINE AUTO 1 /HPF (0-3); SPECIFIC GRAVITY URINE AUTO 1.011 (1.002-1.035); SQUAMOUS EPITHELIAL CELL UR AU 0 /HPF (0-6); UROBILINOGEN, URINE AUTO 0.2 mg/dL (0.0-2.0); WBC, URINE AUTO 1 /HPF (0-3)
[2019-07-25] MEDS: ATORVASTATIN 20 MG TAB PO SCH (20:36)
[2019-07-25] MEDS: VITAMIN D 1,000 INTERNATIONAL UNITS TABLET PO SCH (20:37)
[2019-07-25] MEDS: DABIGATRAN ETEXILATE 75 MG CAP (PRADAXA) PO SCH (20:37)
[2019-07-25] MEDS: SERTRALINE HCL 50 MG TAB PO SCH (20:38)
[2019-07-25] MEDS: ACETAMINOPHEN 500 MG TAB PO PRN (20:52)
[2019-07-25] MEDS ORDERED: LEVEMIR (INSULIN DETEMIR) 1 UNITS/0.01ML SC SCH (21:00)
[2019-07-26] VITALS: BP 140/86
[2019-07-26 04:00] VITALS: BP 141/85
[2019-07-26 05:32] LABS: HEMATOCRIT 40.4 % (42.0-52.0); HEMOGLOBIN 13.5 g/dl (13.5-17.5); MEAN CORPUSCULAR HEMOGLOBIN 31.8 pg (27.0-33.0); MEAN CORPUSCULAR HGB CONC 33.4 g/dl (32.0-36.5); MEAN CORPUSCULAR VOLUME 95.3 fl (80.0-96.0); PLATELET COUNT, AUTOMATED 130 10^3/uL (150-450); RED BLOOD COUNT 4.24 10^6/uL (4.30-6.10); WHITE BLOOD COUNT 15.3 10^3/uL (4.0-10.0)
[2019-07-26 05:52] LABS: CALCIUM LEVEL 9.1 MG/DL (8.8-10.2); CREATININE FOR GFR 1.31 MG/DL (0.70-1.30); GLOMERULAR FILTRATION RATE 55.9 (>35); POTASSIUM SERUM 3.5 MEQ/L (3.5-5.1)
[2019-07-26] MEDS: SLF 3 ML SYR IV SCH ×3 (06:06→22:03)
[2019-07-26] MEDS: TIOTROPIUM INHALER/CAPSULE (SPIRIVA) INH SCH (07:10)
[2019-07-26 08:00] VITALS: BP 164/74
[2019-07-26] MEDS: FUROSEMIDE 100 MG/10 ML VIAL (J1940) IV SCH ×2 (09:04→16:19)
[2019-07-26] MEDS: DABIGATRAN ETEXILATE 75 MG CAP (PRADAXA) PO SCH ×2 (09:04→21:53)
[2019-07-26] MEDS: METOPROLOL TART 50 MG TAB PO SCH ×2 (09:06→21:52)
[2019-07-26] MEDS: POTASSIUM CHLORIDE 10 MEQ SR TABLET PO SCH ×2 (09:06→21:50)
[2019-07-26] MEDS: allopurinoL 100 MG TAB PO SCH ×2 (09:07→21:54)
[2019-07-26] MEDS: **hydrALAZINE** 10 MG TAB PO SCH ×3 (09:07→21:54)
[2019-07-26] MEDS: hydroCHLOROthiazide 25 MG TAB PO SCH (09:07)
[2019-07-26] MEDS: MAGNESIUM OXIDE 400 MG TAB (MAG-OX) PO SCH ×2 (09:07→21:53)
[2019-07-26] MEDS: PREGABALIN 75 MG CAP(LYRICA) PO SCH ×3 (09:08→21:54)
[2019-07-26] MEDS: amLODIPine 5 MG TAB PO SCH ×2 (09:08→21:53)
[2019-07-26] MEDS: lisinopriL 10 MG TAB PO SCH ×2 (09:08→21:54)
[2019-07-26] MEDS: HumaLOG INSULIN (NovoLOG) PER UNIT SC SCH ×4 (09:09→21:49)
[2019-07-26 12:00] VITALS: BP 131/71
[2019-07-26] MEDS: ACETAMINOPHEN 500 MG TAB PO PRN ×2 (12:19→22:00)
--- NOTE | 2019-07-26 14:34 | IPN ---
DATE: 07/26/2019 Marko is seen in the PCU. His said he had a restless evening. He has had trouble sleeping and he got confused. He has a low grade temperature of 100. He denies cough, dysuria or shortness of breath. He apparently had a little bit of hematuria. We did do a urinalysis yesterday which is entirely clear and also a chest x-ray which was unrevealing. He has low grade leukocytosis that is rising for the last three days without source of fever, suggesting it might be central related to his stroke. PHYSICAL EXAMINATION: 141/85. Pulse 65. Respiratory rate 19. 94% oxygen saturation. General Appearance: He is alert, conversant, in no distress. Neurologic exam is unchanged from yesterday. Lungs clear. Heart regular rate and rhythm. Abdomen: Soft. Nontender. No peripheral edema. LABS: White count is 15.3, hemoglobin 13, platelets 130. Sodium 133, potassium 3.5, BUN 28, creatinine 1.3, glucose 210. Blood sugars have been in the 200 to 300 range. IMPRESSION: 1. Stroke. Posterior cerebral artery with left visual field cut. I have ordered an ARU evaluation. He is getting speech and occupational therapy. We restarted Pradaxa last evening. 2. Atrial fibrillation. We restarted Pradaxa. No sign of any bleeding problems. reported hematuria, but there is no blood in the urinalysis. 3. Hypertension. Blood pressure was mildly elevated, but is improved now on the current regimen. 4. Diabetes. I increased his basal insulin dose again. 5. Leukocytosis. The etiology is uknown. Could be reactive from the stroke. No sign of urinary or pulmonary cause. Will continue to monitor this.
[2019-07-26 15:34] VITALS: BP 134/70
[2019-07-26 20:00] VITALS: BP 141/91
[2019-07-26] MEDS: LEVEMIR (INSULIN DETEMIR) 1 UNITS/0.01ML SC SCH (21:48)
[2019-07-26] MEDS: SERTRALINE HCL 50 MG TAB PO SCH (21:53)
[2019-07-26] MEDS: ATORVASTATIN 20 MG TAB PO SCH (21:53)
[2019-07-26] MEDS: VITAMIN D 1,000 INTERNATIONAL UNITS TABLET PO SCH (21:53)
[2019-07-27] VITALS: BP 146/70
[2019-07-27 04:00] VITALS: BP 150/80
[2019-07-27] MEDS: SLF 3 ML SYR IV SCH ×3 (05:16→21:09)
[2019-07-27 05:27] LABS: HEMATOCRIT 41.4 % (42.0-52.0); HEMOGLOBIN 13.7 g/dl (13.5-17.5); MEAN CORPUSCULAR HEMOGLOBIN 31.5 pg (27.0-33.0); MEAN CORPUSCULAR HGB CONC 33.1 g/dl (32.0-36.5); MEAN CORPUSCULAR VOLUME 95.2 fl (80.0-96.0); PLATELET COUNT, AUTOMATED 152 10^3/uL (150-450); RED BLOOD COUNT 4.35 10^6/uL (4.30-6.10); WHITE BLOOD COUNT 13.4 10^3/uL (4.0-10.0)
[2019-07-27 05:50] LABS: CALCIUM LEVEL 9.4 MG/DL (8.8-10.2); CREATININE FOR GFR 1.28 MG/DL (0.70-1.30); GLOMERULAR FILTRATION RATE 57.4 (>35); POTASSIUM SERUM 3.9 MEQ/L (3.5-5.1)
[2019-07-27] MEDS: ACETAMINOPHEN 500 MG TAB PO PRN (07:42)
[2019-07-27 08:00] VITALS: BP 148/88
[2019-07-27] MEDS: HumaLOG INSULIN (NovoLOG) PER UNIT SC SCH ×4 (09:16→21:06)
[2019-07-27] MEDS: DABIGATRAN ETEXILATE 75 MG CAP (PRADAXA) PO SCH ×2 (09:17→21:06)
[2019-07-27] MEDS: FUROSEMIDE 100 MG/10 ML VIAL (J1940) IV SCH ×2 (09:17→17:50)
[2019-07-27] MEDS: allopurinoL 100 MG TAB PO SCH ×2 (09:17→21:08)
[2019-07-27] MEDS: METOPROLOL TART 50 MG TAB PO SCH ×2 (09:18→21:07)
[2019-07-27] MEDS: PREGABALIN 75 MG CAP(LYRICA) PO SCH ×3 (09:18→21:07)
[2019-07-27] MEDS: **hydrALAZINE** 10 MG TAB PO SCH ×3 (09:18→21:07)
[2019-07-27] MEDS: hydroCHLOROthiazide 25 MG TAB PO SCH (09:18)
[2019-07-27] MEDS: amLODIPine 5 MG TAB PO SCH ×2 (09:19→21:06)
[2019-07-27] MEDS: MAGNESIUM OXIDE 400 MG TAB (MAG-OX) PO SCH ×2 (09:19→21:08)
[2019-07-27] MEDS: lisinopriL 10 MG TAB PO SCH ×2 (09:19→21:08)
[2019-07-27] MEDS: POTASSIUM CHLORIDE 10 MEQ SR TABLET PO SCH ×2 (09:20→21:07)
[2019-07-27] MEDS: TIOTROPIUM INHALER/CAPSULE (SPIRIVA) INH SCH (09:29)
[2019-07-27 12:00] VITALS: BP 140/82
--- NOTE | 2019-07-27 12:47 | IPN ---
DATE: 07/27/2019 Marko looks the best he has since his admission. He feels well. He thinks his visual casillas are improved. He slept better. His blood pressures are under better control. Still waiting to hear about ARU admission. PHYSICAL EXAMINATION: Blood pressure 148/88, pulse 71, respiratory rate 18, 95% oxygen saturation. GENERAL APPEARANCE: Alert and conversant, in no distress. Visual field loss is improved. No facial droop or weakness. Lungs clear. Heart regular rhythm, no murmur. Abdomen soft, nontender, no masses. No peripheral edema. Moves arms and legs with equal strength. LABS: Electrolytes unremarkable. Creatinine is 1.28. Sodium is stable at 133. White count 13.4, which is down. Blood sugar is in the 200 range. Urine culture grew out 30,000 enterobacter. Blood cultures have been negative. IMPRESSION: : 1. Stroke, posterior cerebral artery distribution with left visual field loss. ARU screen is pending. He is back on his Pradaxa. He is tolerating this well. 2. Atrial fibrillation. Restart Pradaxa. Rate is controlled. 3. Leukocytosis. He did grown out 30,000 enterobacter on his urine culture. I typically would not treat 30,000 units, but he did have a fever a few days ago and his white count is persisting. I have ordered three days of Cipro, renally dosed. 4. Hypertension. Blood pressure is under better control on current regimen. 5. Diabetes. Blood sugar has come under better control with increasing the doses of basal insulin. Plan is for discharge to ARU once he is accepted there.
[2019-07-27] MEDS: CIPROFLOXACIN 250 MG TAB PO SCH ×2 (13:13→17:51)
[2019-07-27 16:00] VITALS: BP 155/92
[2019-07-27 20:00] VITALS: BP 139/74
[2019-07-27] MEDS: LEVEMIR (INSULIN DETEMIR) 1 UNITS/0.01ML SC SCH (21:06)
[2019-07-27] MEDS: VITAMIN D 1,000 INTERNATIONAL UNITS TABLET PO SCH (21:06)
[2019-07-27] MEDS: SERTRALINE HCL 50 MG TAB PO SCH (21:08)
[2019-07-27] MEDS: ATORVASTATIN 20 MG TAB PO SCH (21:08)
[2019-07-28] VITALS: BP 127/75
[2019-07-28 04:00] VITALS: BP 155/72
[2019-07-28] MEDS: CIPROFLOXACIN 250 MG TAB PO SCH ×2 (05:27→18:13)
[2019-07-28] MEDS: SLF 3 ML SYR IV SCH ×3 (05:27→20:53)
[2019-07-28 06:06] LABS: HEMATOCRIT 40.6 % (42.0-52.0); HEMOGLOBIN 13.4 g/dl (13.5-17.5); MEAN CORPUSCULAR HEMOGLOBIN 31.5 pg (27.0-33.0); MEAN CORPUSCULAR VOLUME 95.5 fl (80.0-96.0); PLATELET COUNT, AUTOMATED 179 10^3/uL (150-450); RED BLOOD COUNT 4.25 10^6/uL (4.30-6.10); WHITE BLOOD COUNT 10.6 10^3/uL (4.0-10.0)
[2019-07-28 06:23] LABS: CALCIUM LEVEL 9.1 MG/DL (8.8-10.2); CREATININE FOR GFR 1.36 MG/DL (0.70-1.30); GLOMERULAR FILTRATION RATE 53.5 (>35); POTASSIUM SERUM 3.2 MEQ/L (3.5-5.1)
[2019-07-28 08:00] VITALS: BP 170/93
[2019-07-28] MEDS: FUROSEMIDE 100 MG/10 ML VIAL (J1940) IV SCH ×2 (08:17→16:34)
[2019-07-28] MEDS: HumaLOG INSULIN (NovoLOG) PER UNIT SC SCH ×4 (08:17→20:53)
[2019-07-28] MEDS: amLODIPine 5 MG TAB PO SCH ×2 (08:19→20:51)
[2019-07-28] MEDS: lisinopriL 10 MG TAB PO SCH ×2 (08:19→20:50)
[2019-07-28] MEDS: **hydrALAZINE** 10 MG TAB PO SCH ×3 (08:20→20:52)
[2019-07-28] MEDS: MAGNESIUM OXIDE 400 MG TAB (MAG-OX) PO SCH ×2 (08:20→20:49)
[2019-07-28] MEDS: PREGABALIN 75 MG CAP(LYRICA) PO SCH ×3 (08:20→20:49)
[2019-07-28] MEDS: hydroCHLOROthiazide 25 MG TAB PO SCH (08:20)
[2019-07-28] MEDS: POTASSIUM CHLORIDE 10 MEQ SR TABLET PO SCH ×2 (08:20→20:52)
[2019-07-28] MEDS: DABIGATRAN ETEXILATE 75 MG CAP (PRADAXA) PO SCH ×2 (08:21→20:47)
[2019-07-28] MEDS: METOPROLOL TART 50 MG TAB PO SCH ×2 (08:21→20:50)
[2019-07-28] MEDS: allopurinoL 100 MG TAB PO SCH ×2 (08:21→20:51)
[2019-07-28] MEDS: TIOTROPIUM INHALER/CAPSULE (SPIRIVA) INH SCH (09:47)
[2019-07-28 12:00] VITALS: BP 165/86
[2019-07-28 16:00] VITALS: BP 148/73
--- NOTE | 2019-07-28 17:04 | IPNPDOC ---
Text Note Date of Service The patient was seen on 07/28/19. NOTE SUBJECTIVE: This is an 79-year-old male who has sustained and likely embolic stroke with residual left visual field deficits. He has not otherwise had any acute events overnight. OBJECTIVE: Please see vital signs below Physical exam: HEENT: Neck is supple with no adenopathy or thyromegaly. Cardiovascular exam: regular rate and rhythm with a normal S1 and S2. Respiratory: Clear to auscultation. Extremities: No pedal edema or lesions. Neuro: No focal neuromotor deficit, patient has visual field deficits ASSESSMENT/PLAN: 1. Acute CVA. Principal consultants left visual field deficit. Etiology related to being off of anticoagulation for his A. fib due to surgery. He is being evaluated for placement in the acute rehabilitation unit. 2. Chronic atrial fibrillation. Given this event patient has certainly been restored to his anticoagulation with Pradaxa. 3. Urinary tract infection. Patient has had moderate growth of Enterobacter from his urine. He is being treated with ciprofloxacin. VS,Fishbone, I+O VS, Fishbone, I+O Laboratory Tests 07/28/19 05:08 Vital Signs Date Time Temp Pulse Resp B/P (MAP) Pulse Ox O2 Delivery O2 Flow Rate FiO2 07/28/19 16:35 148/73 07/28/19 16:00 98.5 70 20 95 NIPPV (BIPAP/CPAP) I&O- Last 24 Hours up to 6 AM 07/28/19 06:00 Intake Total 1300 ml Output Total 3050 ml Balance -1750 ml PARISA CARTER MD Jul 28, 2019 17:04
[2019-07-28 20:00] VITALS: BP 150/80
[2019-07-28] MEDS: SERTRALINE HCL 50 MG TAB PO SCH (20:47)
[2019-07-28] MEDS: VITAMIN D 1,000 INTERNATIONAL UNITS TABLET PO SCH (20:48)
[2019-07-28] MEDS: ATORVASTATIN 20 MG TAB PO SCH (20:49)
[2019-07-28] MEDS: LEVEMIR (INSULIN DETEMIR) 1 UNITS/0.01ML SC SCH (20:53)
[2019-07-29] VITALS (7 sets, daily range): BP systolic 133–166; BP diastolic 65–78
[2019-07-29 05:54] LABS: HEMATOCRIT 41.5 % (42.0-52.0); HEMOGLOBIN 13.8 g/dl (13.5-17.5); MEAN CORPUSCULAR HEMOGLOBIN 32.3 pg (27.0-33.0); MEAN CORPUSCULAR HGB CONC 33.3 g/dl (32.0-36.5); MEAN CORPUSCULAR VOLUME 97.2 fl (80.0-96.0); PLATELET COUNT, AUTOMATED 154 10^3/uL (150-450); RED BLOOD COUNT 4.27 10^6/uL (4.30-6.10); WHITE BLOOD COUNT 8.8 10^3/uL (4.0-10.0)
[2019-07-29 06:10] LABS: CALCIUM LEVEL 8.9 MG/DL (8.8-10.2); CREATININE FOR GFR 1.24 MG/DL (0.70-1.30); GLOMERULAR FILTRATION RATE 59.6 (>35); POTASSIUM SERUM 3.5 MEQ/L (3.5-5.1)
[2019-07-29] MEDS: CIPROFLOXACIN 250 MG TAB PO SCH ×2 (06:16→17:03)
[2019-07-29] MEDS: SLF 3 ML SYR IV SCH ×3 (06:17→22:30)
[2019-07-29] MEDS: TIOTROPIUM INHALER/CAPSULE (SPIRIVA) INH SCH (07:48)
[2019-07-29] MEDS: POTASSIUM CHLORIDE 10 MEQ SR TABLET PO SCH ×2 (08:52→20:08)
[2019-07-29] MEDS: **hydrALAZINE** 10 MG TAB PO SCH ×3 (08:53→20:09)
[2019-07-29] MEDS: MAGNESIUM OXIDE 400 MG TAB (MAG-OX) PO SCH ×2 (08:53→20:09)
[2019-07-29] MEDS: hydroCHLOROthiazide 25 MG TAB PO SCH (08:53)
[2019-07-29] MEDS: PREGABALIN 75 MG CAP(LYRICA) PO SCH ×3 (08:53→20:10)
[2019-07-29] MEDS: amLODIPine 5 MG TAB PO SCH ×2 (08:53→20:11)
[2019-07-29] MEDS: DABIGATRAN ETEXILATE 75 MG CAP (PRADAXA) PO SCH ×2 (08:53→20:08)
[2019-07-29] MEDS: METOPROLOL TART 50 MG TAB PO SCH ×2 (08:54→20:10)
[2019-07-29] MEDS: HumaLOG INSULIN (NovoLOG) PER UNIT SC SCH ×4 (08:54→21:00)
[2019-07-29] MEDS: lisinopriL 10 MG TAB PO SCH ×2 (08:54→20:11)
[2019-07-29] MEDS: allopurinoL 100 MG TAB PO SCH ×2 (08:54→20:10)
[2019-07-29] MEDS: FUROSEMIDE 100 MG/10 ML VIAL (J1940) IV SCH ×2 (08:54→17:03)
[2019-07-29] MEDS ORDERED: NYSTATIN 100,000 UNITS/GM TOPICAL PWD 15 GM TOP PRN (15:30)
--- NOTE | 2019-07-29 15:34 | IPNPDOC ---
Text Note Date of Service The patient was seen on 07/29/19. NOTE SUBJECTIVE: This is an 79-year-old male who has sustained a likely embolic stroke with residual left visual field deficits. He states he feels his deficits are improving. However, he feels unsteady on his feet. OBJECTIVE: Please see vital signs below Physical exam: HEENT: Neck is supple with no adenopathy or thyromegaly. Cardiovascular exam: regular rate and rhythm with a normal S1 and S2. Respiratory: Clear to auscultation. Extremities: No pedal edema or lesions. Neuro: No focal neuromotor deficit, patient has Left visual field deficits, but states he does not have difficulty seeing me at bedside, as he is complaining of poor balance. I did not stand him for gait assessment. 1. Acute CVA. Patient has sustained likely acute embolic stroke to the right posterior cerebral artery distribution. Principal insult is left visual field deficit. Patient is also complaining of unsteadiness on his feet. He is being evaluated for placement into the acute rehabilitation unit. 2. Chronic atrial fibrillation Patient has been restored to his anticoagulation with Pradaxa. 3. Urinary tract infection. Patient had moderate growth of Enterobacter from his urine and is being treated with ciprofloxacin. VS,Fishbone, I+O VS, Fishbone, I+O Laboratory Tests 07/29/19 05:28 Vital Signs Date Time Temp Pulse Resp B/P (MAP) Pulse Ox O2 Delivery O2 Flow Rate FiO2 07/29/19 12:21 97.7 75 18 139/65 (89) 95 Room Air I&O- Last 24 Hours up to 6 AM 07/29/19 06:00 Intake Total 720 ml Output Total 2300 ml Balance -1580 ml PARISA CARTER MD Jul 29, 2019 15:34
[2019-07-29] MEDS: GLIMEPIRIDE 2 MG TAB PO SCH (17:02)
[2019-07-29] MEDS: VITAMIN D 1,000 INTERNATIONAL UNITS TABLET PO SCH (20:08)
[2019-07-29] MEDS: SERTRALINE HCL 50 MG TAB PO SCH (20:10)
[2019-07-29] MEDS: ATORVASTATIN 20 MG TAB PO SCH (20:10)
[2019-07-29] MEDS: LEVEMIR (INSULIN DETEMIR) 1 UNITS/0.01ML SC SCH (21:23)
[2019-07-30] MEDS: CIPROFLOXACIN 250 MG TAB PO SCH (06:32)
[2019-07-30] MEDS: ACETAMINOPHEN 500 MG TAB PO PRN (06:33)
[2019-07-30] MEDS: SLF 3 ML SYR IV SCH ×2 (06:34→14:16)
[2019-07-30 07:02] VITALS: BP 144/76
[2019-07-30] MEDS: HumaLOG INSULIN (NovoLOG) PER UNIT SC SCH ×2 (07:30→13:19)
[2019-07-30] MEDS: TIOTROPIUM INHALER/CAPSULE (SPIRIVA) INH SCH (08:55)
[2019-07-30] MEDS ORDERED: ASPIRIN 81 MG ENTERIC TAB PO SCH (09:00)
[2019-07-30] MEDS: POTASSIUM CHLORIDE 10 MEQ SR TABLET PO SCH (09:50)
[2019-07-30] MEDS: MAGNESIUM OXIDE 400 MG TAB (MAG-OX) PO SCH (09:50)
[2019-07-30] MEDS: PREGABALIN 75 MG CAP(LYRICA) PO SCH (09:51)
[2019-07-30] MEDS: hydroCHLOROthiazide 25 MG TAB PO SCH (09:51)
[2019-07-30] MEDS: **hydrALAZINE** 10 MG TAB PO SCH (09:51)
[2019-07-30] MEDS: allopurinoL 100 MG TAB PO SCH (09:51)
[2019-07-30 09:52] VITALS: BP 130/65
[2019-07-30] MEDS: lisinopriL 10 MG TAB PO SCH (09:52)
[2019-07-30] MEDS: amLODIPine 5 MG TAB PO SCH (09:52)
[2019-07-30] MEDS: METOPROLOL TART 50 MG TAB PO SCH (09:52)
[2019-07-30] MEDS: FUROSEMIDE 100 MG/10 ML VIAL (J1940) IV SCH (09:53)
[2019-07-30] MEDS: DABIGATRAN ETEXILATE 75 MG CAP (PRADAXA) PO SCH (09:53)
[2019-07-30] MEDS: GLIMEPIRIDE 2 MG TAB PO SCH (09:57)
[2019-07-30] MEDS ORDERED: HYDR10TAB PO (11:43)
[2019-07-30] MEDS ORDERED: AMLO5TAB6 PO (11:43)
[2019-07-30] MEDS ORDERED: ATOR1TAB21 PO (11:43)
[2019-07-30] MEDS ORDERED: ACET-683 PO (11:43)
[2019-07-30] MEDS ORDERED: NYST10006 TOP (11:43)
--- NOTE | 2019-07-30 11:49 | DS.PDOC ---
Discharge Summary General Date of Admission Jul 22, 2019 at 09:46 Date of Discharge July 30, 2019 Specialist/Consultants Involve: NAWAF SANCHEZ MD Discharge Summary PROCEDURES PERFORMED DURING STAY: Echocardiogram. ADMITTING DIAGNOSES: 1. 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 DISCHARGE DIAGNOSES: 1. Acute CVA to the right posterior cerebral artery distribution, left homonymous hemianopsia, [id number] diabetes mellitus, chronic atrial fibrillation, dyslipidemia, polyneuropathy related to diabetes, obstructive sleep apnea for which she sleeps with a CPAP mask, COPD, pulmonary hypertension. COMPLICATIONS/CHIEF COMPLAINT: Stroke Due To Embolism Of Right Posterior Cerebral. HISTORY OF PRESENT ILLNESS/HOSPITAL COURSE: This is an 79-year-old male who had acute onset of throbbing and burning headache. He also was having visual disturbance; for example, he had difficulty using a telephone. The patient was delayed in getting to the hospital as concern was variable regarding whether he was having a stroke. Upon eventual arrival to the hospital he was noted on CT scan to have an acute infarct to the region of the right posterior cerebral artery. He was outside of the therapeutic window for TPA. Patient was admitted to [facility]. He was found to have left homonymous hemianopsia. He had difficulty with ambulation and balance as well. Etiology of this appears to have been due to his being off of his Pradaxa for potential surgical procedure. The patient has underlying chronic atrial fibrillation. The patient was restored to his Pradaxa toward the end of his hospital stay. Recommendations is that if he is to be off his Pradaxa that he have some form of bridging therapy. The patient was evaluated by echocardiogram; presence of a right ventricular pacer is noted. He is found to have severe pulmonary hypertension. Left ventricular function was otherwise generally well within normal limits. Patient has been evaluated by the acute rehabilitation unit and is accepted for additional rehabilitation; again, he has some gait and balance instability due to his visual field deficit.. DISCHARGE MEDICATIONS: Please see below. ALLERGIES: Please see below. PHYSICAL EXAMINATION ON DISCHARGE: VITAL SIGNS: Please see below. GENERAL: The patient wears nasal CPAP when he is sleeping for his obstructive sleep apnea HEENT: Neck is supple with no adenopathy or thyromegaly. Cardiovascular exam: regular rate and rhythm with a normal S1 and S2. Respiratory: Clear to auscultation. Extremities: No pedal edema or lesions. Neuro: No focal neuromotor deficit, patient has Left visual field deficits, but states he does not have difficulty seeing me at bedside. As he is complaining of poor balance. I did not stand him for gait assessment. LABORATORY DATA: Please see below. IMAGING: HEAD CT IMPRESSION: Loss of shankar-white differentiation in the right BRAZING FURNACE OPERATOR territory involving the medial right temporal lobe and occipital lobe, evidence of acute infarct. ASSESSMENT: ASPECTS ([place] Stroke Program Early CT Score) is 10 Electronically signed by: Isaac Ontiveros On 07/22/2019 05:42:41 AM PROGNOSIS: ACTIVITY: As tolerated. DIET: Consistent carbohydrate DISCHARGE PLAN: The patient is to be discharged to acute rehabilitation unit for physical and occupational therapy for compensation with his left homonymous hemianopsia. He will be following up with the ARU medical laboratory technician; he will have subsequent follow-up with his primary care provider upon discharge from that unit. DISPOSITION: . DISCHARGE INSTRUCTIONS: 1. . ITEMS TO FOLLOWUP ON ON OUTPATIENT: 1. . DISCHARGE CONDITION: Stable. TIME SPENT ON DISCHARGE: 40 minutes. Vital Signs/I&Os Vital Signs Date Time Temp Pulse Resp B/P (MAP) Pulse Ox O2 Delivery O2 Flow Rate FiO2 07/30/19 09:52 89 130/65 07/30/19 07:02 99.8 19 94 Room Air I&O- Last 24 Hours up to 6 AM 07/30/19 06:00 Intake Total 800 ml Output Total 1000 ml Balance -200 ml Laboratory Data Labs 24H Laboratory Tests 2 07/29/19 12:19: Bedside Glucose (Misc Panel) 337H 07/29/19 17:00: Bedside Glucose (Misc Panel) 279H 07/29/19 20:33: Bedside Glucose (Misc Panel) 193H 07/30/19 06:31: Bedside Glucose (Misc Panel) 81L 07/30/19 11:34: Bedside Glucose (Misc Panel) 233H FSBS Laboratory Tests Test 07/29/19 12:19 07/29/19 17:00 07/29/19 20:33 07/30/19 06:31 Range/Units Bedside Glucose (Misc Panel) 337 279 193 81 83-110 MG/DL Test 07/30/19 11:34 Range/Units Bedside Glucose (Misc Panel) 233 83-110 MG/DL Microbiology Microbiology 07/26/19 Blood Culture - Preliminary, Resulted No Growth after 72 hours. All specime... 07/26/19 Blood Culture - Preliminary, Resulted No Growth after 72 hours. All specime... 07/25/19 Urine Culture - Final, Complete Enterobacter Aerogenes Discharge Medications Scheduled Allopurinol (Allopurinol) 100 Mg Tablet, 100 MG PO BID, (Reported) Amlodipine Besylate (Amlodipine Besylate) 5 Mg Tablet, 5 MG PO BID Aspirin (Aspirin EC) 81 Mg Tablet.dr, 81 MG PO DAILY for pain, (Reported) ON HOLD DUE TO PROCEDURE ON 07/23/19 Atorvastatin Calcium (Atorvastatin Calcium) 20 Mg Tablet, 20 MG PO QHS Cholecalciferol (Vitamin D3) (Vitamin D3) 1,000 Unit Tablet, 1,000 UNIT PO QHS, (Reported) Dabigatran Etexilate Mesylate (Pradaxa) 150 Mg Capsule, 150 MG PO BID, (Reported) ON HOLD SINCE 07/17/19 - PROCEDURE SCHEDULE FOR 07/23/19 Fenofibrate Nanocrystallized (Fenofibrate) 145 Mg Tablet, 145 MG PO QHS, (R eported) Furosemide (Furosemide) 40 Mg Tablet, 40 MG PO DAILY, (Reported) Glimepiride (Glimepiride) 4 Mg Tablet, 4 MG PO BID, (Reported) Hydralazine HCl (Hydralazine HCl) 10 Mg Tablet, 20 MG PO TID Hydrochlorothiazide (Hydrochlorothiazide) 25 Mg Tablet, 25 MG PO DAILY, (Reported) Insulin Glargine,Hum.rec.anlog (Lantus Solostar) 100 Unit/1 Ml Insuln.pen, 40 UNITS SQ QHS, (Reported) Linagliptin (Tradjenta) 5 Mg Tablet, 5 MG PO DAILY, (Reported) Lisinopril (Lisinopril) 10 Mg Tablet, 10 MG PO BID, (Reported) Magnesium Oxide (Magnesium) 400 Mg Capsule, 400 MG PO BID, (Reported) Metoprolol Tartrate (Metoprolol Tartrate) 50 Mg Tablet, 50 MG PO BID, (Reported) Potassium Chloride (Potassium Chloride) 10 Meq Capsule.er, 30 MEQ PO BID, (Reported) Pregabalin (Lyrica) 75 Mg Capsule, 75 MG PO TID, (Reported) Sertraline HCl (Sertraline HCl) 50 Mg Tablet, 50 MG PO QHS, (Reported) Tiotropium [place] (Spiriva) 18 Mcg Cap.w.dev, 1 PUFF INH DAILY, (Reported) Scheduled PRN Acetaminophen (Acetaminophen) 500 Mg Tablet, 1,000 MG PO Q6HP PRN for PAIN / FEVER Nystatin (Nystop) 60 Gm Powder, 1 DOSE TOP BIDP PRN for RASH Allergies Coded Allergies: Sulfa (Sulfonamide Antibiotics) (Verified Allergy, Unknown, 07/22/19) PATIENT DOES NOT BELIEVE HE IS ALLERGIC TO THIS MEDICATION. PARISA CARTER MD Jul 30, 2019 11:48
[2019-07-30 14:00] VITALS: BP 155/83
== END 2019-07-30 14:36 | DRG 65 ==
LOC: M ED 01:23 → M ED INP 09:46 → M PCU 14:00 → M MSPAV 07-29 18:12
PROVIDERS: ADMIT Family Medicine; ATTEND Internal Medicine
DX: I63.431 Cerebral infarction due to embolism of right posterior cerebral artery (principal); I48.20 Chronic atrial fibrillation, unspecified; E11.42 Type 2 diabetes mellitus with diabetic polyneuropathy; I11.9 Hypertensive heart disease without heart failure; H53.47 Heteronymous bilateral field defects; E78.5 Hyperlipidemia, unspecified; G47.33 Obstructive sleep apnea (adult) (pediatric); J44.9 Chronic obstructive pulmonary disease, unspecified; I27.20 Pulmonary hypertension, unspecified; Z79.899 Other long term (current) drug therapy; Z79.82 Long term (current) use of aspirin; Z88.2 Allergy status to sulfonamides; M10.9 Gout, unspecified; I71.4 Abdominal aortic aneurysm, without rupture; Z95.0 Presence of cardiac pacemaker; Z96.641 Presence of right artificial hip joint; D72.829 Elevated white blood cell count, unspecified

== ENCOUNTER 2019-07-30 08:41 | Inpatient (IN) | payer MEDICARE, BC ==
[~2019-07-30] VITALS: Ht 172.7 cm; Wt 98.6 kg
[~2019-07-30 08:41] MED LIST: ALLO100T PO; ASPI81TA26 PO; FENO145T13 PO; FURO40TA2 PO; GLIM4TAB3 PO; HYDR25TAB PO; LANTINJ4 SQ; LISI10TA4 PO; LYRI75CA PO; MAGN400C PO; METO50TA7 PO; POTA10CA32 PO; PRAD150C6 PO; PREG75CA2; SERT50TA29 PO; SPIR1CAP INH; TRAD5TAB PO; VITA100066 PO
[2019-07-30] MEDS ORDERED: HYDR10TAB PO (11:43)
[2019-07-30] MEDS ORDERED: NYST10006 TOP (11:43)
[2019-07-30] MEDS ORDERED: ATOR1TAB21 PO (11:43)
[2019-07-30] MEDS ORDERED: AMLO5TAB6 PO (11:43)
[2019-07-30] MEDS ORDERED: ACET-683 PO (11:43)
[2019-07-30] MEDS ORDERED: DEXTROSE 50% 50 ML SYRINGE IV PRN (14:15)
[2019-07-30] MEDS ORDERED: ONDANSETRON 4 MG TAB (S0181) PO PRN (14:15)
[2019-07-30] MEDS ORDERED: GLUCAGON FOR INJ 1 MG VIAL (J1610) SC PRN (14:15)
[2019-07-30] MEDS ORDERED: GLUCOSE 4 GM CHEW TABLET PO PRN (14:15)
[2019-07-30] MEDS ORDERED: ACETAMINOPHEN TAB 650MG DOSE (2X325MG) PO PRN (14:15)
[2019-07-30] MEDS ORDERED: MOM 30ML SUSPENSION UDC PO PRN (14:15)
--- NOTE | 2019-07-30 14:46 | HPEPDOC ---
Advertising Specialist Note DATE OF ADMISSION: 07-30-19 DATE OF SERVICE: 07-30-19 TIME OF ADMISSION: Please refer to physician's admission order. 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 He was evaluated by neurology who deemed his stroke was likely be embolic in nature, was allowed permissive HTN, was restarted on his Pradaxa after a few days while taking ASA with follow-up CTs negative for hemorrhagic transformation or significant mass effect. He developed leukocytosis with a Ucx positive for enterrobacter and started on Ciprofloxacin. He was evaluated by therapy, noted to be below his baseline in mobility and ADLs and deemed medically appropriate for discharge to ARU on 07-30-19. REVIEW OF SYSTEMS: The following is a completed review of systems and has been reviewed. Review of systems otherwise unremarkable. PAIN: Patient self reports no pain EYES: +left sided visual field deficits EARS, NOSE, & THROAT: No throat pain, or dysphagia, or rhinorrhea CARDIOVASCULAR: Denies chest pain or palpitations PULMONARY: Denies shortness of breath GASTROINTESTINAL: Denies constipation/diarrhea GENITOURINARY: denies dysuria MUSCULOSKELETAL: no joint pain or swelling NEUROLOGICAL:+stroke HEMATOLOGICAL: denies easy bruising SKIN: denies rash PSYCHIATRIC: Unremarkable All other review of systems found to be negative. PAST MEDICAL HISTORY: as per HPI PAST SURGICAL HISTORY: Prostate surgery 2010, left total hip replacement 2015, PM, colonoscopy ALLERGIES: Please see below. MEDICATIONS: Please see below. FAMILY HISTORY:Cardiac and DM SOCIAL HISTORY: no etoh/smoking/illicit drugs DIET: low salt, consistent carbs PHYSICAL EXAMINATION: VITAL SIGNS: Please see below. GENERAL: Pleasant and cooperative. No acute distress. HEENT: PERRL. Extraocular movements intact. Clear conjunctiva, no facial droop CARDIOVASCULAR: Regular rate and rhythm. No murmurs, rubs, or gallops LUNGS: Clear to auscultation bilaterally. No wheezes. No rhonchi ABDOMEN: Soft, nontender, nondistended. Positive bowel sounds. Normal active bowel sounds NEUROLOGICAL: Alert and oriented times three. Cranial nerves II through XII grossly intact. Sensation grossly intact in all 4 extremities +visual field cut on left EXTREMITIES: 5\5 strength bilateral upper extremities. 5\5 strength right lower extremity. 5/5 strength in left lower extremity. SKIN: intact LABORATORY DATA: Please see below. IMAGING:Imaging documentation personally reviewed by record FUNCTIONAL STATUS: Premorbid: Independent with all activities of daily life as well as mobility On Admission: Contact guard assistance for bathing, upper body dressing, bed chair and wheelchair transfers, toilet transfers, ambulation. GOALS: Modified Independent with RW household distances, supervision for community distances, Mod-I for functional transfers, toileting, dressing, bathing, assess for DMEs, medical optimization. 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 Neuro: hx of AFib, likely embolic right THEATER SET PRODUCTION DESIGNER territory infarct, started back on Pradaxa, also on ASA, monitor for clinical changes concerning for hemorrhagic conversion while on ARU -maintain good BP control, statin/fenofibrate therapy, patient on SSRI already for motor recovery in stroke -will need outpatient neuro f/u 3. Cardiac: hx Afib c/u metoprolol and Pradaxa, medicine consulted to assist in management -recent ECHO + for CHF with recent CXRs concerning for interstitial edema s/p IV lasix, c/u on oral lasix and HCTZ, daily weights, fluid restrict to 1800cc -HTN c/u amlodipine, lisinopril, hydralazine, +PM -Aortic US showed, Mild aneurysmal dilatation distal abdominal aorta 3.8 x 4.2 cm to be followed by his PMD 4. Resp: hx ANSON c/u CPAP, monitor for infection 5. Endo: pmh DM c/u Amaryl, Levemir, and ISS 6. Renal: monitor for HAYDEN in setting of CKD 7.: c/u 7 day course of Cipro, will add Bacid 8. DVT ppx: on Pradaxa, teds 9. GI ppx: protonix 10. Pain: Tylenol prn and Lyrica 11. Psych: depression c/u Zoloft 11. Dispo: TBD POST ADMISSION PHYSICIAN EVALUATION: Medical and functional status: Description of medical status, medical assessment: As above. Rehabilitation diagnosis and current and prior cold morbid medical conditions as above. Risk of complications and plans to mitigate them as above. Description of functional status current status is as above. Prior status as above. Status compared to preadmission: There are no clinically significant differences between the patient's current status and the information described on the preadmission screening document. Treatment plan anticipated: Treatment plan is as described above. Required disciplines including physical therapy, occupational therapy, others as noted above. Intensity of services: 3 hours a day, 6 days a week. Special considerations: There are no specific special or safety considerations that would likely preclude immediate implementation of an intensive rehabilitation program or subsequently influence the plan of care. ATTESTATION: Considering all the information above, it is my best judgment that this patient requires intensive rehabilitation therapy as described above and an inpatient hospital environment due to the complexity of nursing, medical, and rehabilitation needs required by the patient. Furthermore, this patient can reasonably be expected to participate in an benefit from an inpatient marco antonio abilitation stay with an interdisciplinary team approach to the delivery of rehabilitation care under the direction and supervision of rehabilitation physician. PROGNOSIS: Excellent. ESTIMATED LENGTH OF STAY: 14-16 days. PROJECTED DISCHARGE DESTINATION: Home with family support and any durable medical equipment required to increase functional safety and mobility. TIME SPENT COUNSELING AND COORDINATING INITIAL CARE: Greater than 70 minutes. Vital Signs Vital Signs Date Time Temp Pulse Resp B/P (MAP) Pulse Ox O2 Delivery O2 Flow Rate FiO2 07/30/19 15:00 97.9 73 18 137/72 (93) 96 Room Air Home Medications Scheduled Allopurinol (Allopurinol) 100 Mg Tablet, 100 MG PO BID, (Reported) Amlodipine Besylate (Amlodipine Besylate) 5 Mg Tablet, 5 MG PO BID Aspirin (Aspirin EC) 81 Mg Tablet.dr, 81 MG PO DAILY, (Reported) ON HOLD DUE TO PROCEDURE ON 07/23/19 Atorvastatin Calcium (Atorvastatin Calcium) 20 Mg Tablet, 20 MG PO QHS Cholecalciferol (Vitamin D3) (Vitamin D3) 1,000 Unit Tablet, 1,000 UNIT PO QHS, (Reported) Dabigatran Etexilate Mesylate (Pradaxa) 150 Mg Capsule, 150 MG PO BID, (Reported) ON HOLD SINCE 07/17/19 - PROCEDURE SCHEDULE FOR 07/23/19 Fenofibrate Nanocrystallized (Fenofibrate) 145 Mg Tablet, 145 MG PO QHS, (Reported) Furosemide (Furosemide) 40 Mg Tablet, 40 MG PO DAILY, (Reported) Glimepiride (Glimepiride) 4 Mg Tablet, 4 MG PO BID, (Reported) Hydralazine HCl (Hydralazine HCl) 10 Mg Tablet, 20 MG PO TID Hydrochlorothiazide (Hydrochlorothiazide) 25 Mg Tablet, 25 MG PO DAILY, (Repo rted) Insulin Glargine,Hum.rec.anlog (Lantus Solostar) 100 Unit/1 Ml Insuln.pen, 40 UNITS SQ QHS, (Reported) Linagliptin (Tradjenta) 5 Mg Tablet, 5 MG PO DAILY, (Reported) Lisinopril (Lisinopril) 10 Mg Tablet, 10 MG PO BID, (Reported) Magnesium Oxide (Magnesium) 400 Mg Capsule, 400 MG PO BID, (Reported) Metoprolol Tartrate (Metoprolol Tartrate) 50 Mg Tablet, 50 MG PO BID, (Reported) Potassium Chloride (Potassium Chloride) 10 Meq Capsule.er, 30 MEQ PO BID, (Reported) Pregabalin (Lyrica) 75 Mg Capsule, 75 MG PO TID, (Reported) Sertraline HCl (Sertraline HCl) 50 Mg Tablet, 50 MG PO QHS, (Reported) Tiotropium Umpire (Spiriva) 18 Mcg Cap.w.dev, 1 PUFF INH DAILY, (Reported) Scheduled PRN Acetaminophen (Acetaminophen) 500 Mg Tablet, 1,000 MG PO Q6HP PRN for PAIN / FEVER Nystatin (Nystop) 60 Gm Powder, 1 DOSE TOP BIDP PRN for RASH Allergies Coded Allergies: Sulfa (Sulfonamide Antibiotics) (Verified Allergy, Unknown, 07/22/19) PATIENT DOES NOT BELIEVE HE IS ALLERGIC TO THIS MEDICATION. A-FIB/CHADSVASC A-FIB History Current/History of A-Fib/PAF?: Yes Current PO Anticoag Therapy: Yes KRISTNE DOBBS MD Jul 30, 2019 14:46
[2019-07-30 15:00] VITALS: BP 137/72
[2019-07-30] MEDS: LACTOBACILLUS ACIDOPHILUS CAP (BACID) PO SCH ×2 (16:52→21:43)
[2019-07-30] MEDS: PANTOPRAZOLE 40MG TAB (PROTONIX) PO SCH (16:52)
[2019-07-30] MEDS: PREGABALIN 75 MG CAP(LYRICA) PO SCH ×2 (16:52→21:43)
[2019-07-30] MEDS: **hydrALAZINE** 10 MG TAB PO SCH ×2 (16:52→21:43)
[2019-07-30] MEDS: CIPROFLOXACIN 250 MG TAB PO SCH (17:47)
[2019-07-30] MEDS: GLIMEPIRIDE 2 MG TAB PO SCH (17:47)
[2019-07-30] MEDS: HumaLOG INSULIN (NovoLOG) PER UNIT SC SCH ×2 (17:47→21:00)
[2019-07-30 21:00] VITALS: BP 128/76
[2019-07-30] MEDS: DOCUSATE SODIUM 100 MG CAP PO SCH (21:00)
[2019-07-30] MEDS: SENNA 8.6 MG TAB (SENOKOT) PO SCH (21:00)
[2019-07-30] MEDS ORDERED: LEVEMIR (INSULIN DETEMIR) 1 UNITS/0.01ML SC SCH (21:00)
[2019-07-30] MEDS: NYSTATIN 100,000 UNITS/GM TOPICAL PWD 15 GM TOP SCH (21:41)
[2019-07-30] MEDS: allopurinoL 100 MG TAB PO SCH (21:42)
[2019-07-30] MEDS: FENOFIBRATE 145 MG TAB (TRICOR) PO SCH (21:42)
[2019-07-30] MEDS: MAGNESIUM OXIDE 400 MG TAB (MAG-OX) PO SCH (21:42)
[2019-07-30] MEDS: ATORVASTATIN 20 MG TAB PO SCH (21:42)
[2019-07-30] MEDS: SERTRALINE HCL 50 MG TAB PO SCH (21:42)
[2019-07-30] MEDS: DABIGATRAN ETEXILATE 75 MG CAP (PRADAXA) PO SCH (21:43)
[2019-07-30] MEDS: POTASSIUM CHLORIDE 10 MEQ SR TABLET PO SCH (21:44)
[2019-07-30] MEDS: amLODIPine 5 MG TAB PO SCH (21:44)
[2019-07-30] MEDS: lisinopriL 10 MG TAB PO SCH (21:44)
[2019-07-30] MEDS: VITAMIN D 1,000 INTERNATIONAL UNITS TABLET PO SCH (21:44)
[2019-07-30] MEDS: METOPROLOL TART 50 MG TAB PO SCH (21:44)
[2019-07-31 06:00] VITALS: BP 163/81
[2019-07-31] MEDS: CIPROFLOXACIN 250 MG TAB PO SCH ×2 (06:24→17:11)
[2019-07-31 07:31] LABS: BASO # 0.1 10^3/uL (0.0-0.2); BASO % 0.7 % (0.0-1.0); EOS # 0.3 10^3/uL (0.0-0.5); EOS % 3.2 % (0.0-3.0); HEMATOCRIT 38.5 % (42.0-52.0); HEMOGLOBIN 12.6 g/dl (13.5-17.5); LYMPH # 1.9 10^3/uL (1.5-5.0); LYMPH % 17.9 % (24.0-44.0); MEAN CORPUSCULAR HEMOGLOBIN 31.3 pg (27.0-33.0); MEAN CORPUSCULAR HGB CONC 32.7 g/dl (32.0-36.5); MEAN CORPUSCULAR VOLUME 95.8 fl (80.0-96.0); MONO # 1.2 10^3/uL (0.0-0.8); MONO % 11.2 % (0.0-5.0); NEUTROPHILS % 66.3 % (36.0-66.0); PLATELET COUNT, AUTOMATED 252 10^3/uL (150-450); RED BLOOD COUNT 4.02 10^6/uL (4.30-6.10); WHITE BLOOD COUNT 10.5 10^3/uL (4.0-10.0)
[2019-07-31 07:54] LABS: ALBUMIN 2.8 GM/DL (3.2-5.2); ALT/SGPT 75 U/L (12-78); BILIRUBIN,TOTAL 0.9 MG/DL (0.2-1.0); BLOOD UREA NITROGEN 33 MG/DL (7-18); CARBON DIOXIDE LEVEL 27 MEQ/L (21-32); CHLORIDE LEVEL 103 MEQ/L (98-107); GLOMERULAR FILTRATION RATE > 60.0 (>35); GLUCOSE, FASTING 130 MG/DL (70-100); POTASSIUM SERUM 3.8 MEQ/L (3.5-5.1); SODIUM LEVEL 138 MEQ/L (136-145); TOTAL PROTEIN 7.3 GM/DL (6.4-8.2)
[2019-07-31] MEDS: TIOTROPIUM INHALER/CAPSULE (SPIRIVA) INH SCH (07:54)
[2019-07-31] MEDS: amLODIPine 5 MG TAB PO SCH ×2 (08:16→21:30)
[2019-07-31] MEDS: DABIGATRAN ETEXILATE 75 MG CAP (PRADAXA) PO SCH ×2 (08:16→21:29)
[2019-07-31] MEDS: LACTOBACILLUS ACIDOPHILUS CAP (BACID) PO SCH ×3 (08:16→21:28)
[2019-07-31] MEDS: hydroCHLOROthiazide 25 MG TAB PO SCH (08:17)
[2019-07-31] MEDS: **hydrALAZINE** 10 MG TAB PO SCH ×3 (08:17→21:28)
[2019-07-31] MEDS: DOCUSATE SODIUM 100 MG CAP PO SCH ×2 (08:17→21:28)
[2019-07-31] MEDS: allopurinoL 100 MG TAB PO SCH ×2 (08:17→21:29)
[2019-07-31] MEDS: PREGABALIN 75 MG CAP(LYRICA) PO SCH ×3 (08:17→21:28)
[2019-07-31] MEDS: PANTOPRAZOLE 40MG TAB (PROTONIX) PO SCH (08:18)
[2019-07-31] MEDS: GLIMEPIRIDE 2 MG TAB PO SCH ×2 (08:18→17:11)
[2019-07-31] MEDS: MAGNESIUM OXIDE 400 MG TAB (MAG-OX) PO SCH ×2 (08:18→21:29)
[2019-07-31] MEDS: POTASSIUM CHLORIDE 10 MEQ SR TABLET PO SCH ×2 (08:18→21:30)
[2019-07-31] MEDS: ASPIRIN 81 MG ENTERIC TAB PO SCH (08:19)
[2019-07-31] MEDS: HumaLOG INSULIN (NovoLOG) PER UNIT SC SCH ×4 (08:19→21:35)
[2019-07-31] MEDS: lisinopriL 10 MG TAB PO SCH ×2 (08:20→21:28)
[2019-07-31] MEDS: FUROSEMIDE 40 MG TAB PO SCH (08:20)
[2019-07-31] MEDS: METOPROLOL TART 50 MG TAB PO SCH ×3 (08:20→21:30)
[2019-07-31] MEDS: NYSTATIN 100,000 UNITS/GM TOPICAL PWD 15 GM TOP SCH ×2 (08:21→21:32)
[2019-07-31] MEDS ORDERED: VITAMIN D 1,000 INTERNATIONAL UNITS TABLET PO SCH (09:00)
[2019-07-31] MEDS ORDERED: allopurinoL 100 MG TAB PO SCH (09:00)
[2019-07-31 11:04] VITALS: BP 148/74
--- NOTE | 2019-07-31 12:28 | IPNPDOC ---
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 He denies any worsening weakness or changes in his vision. REVIEW OF SYSTEMS: The following is a completed review of systems and has been reviewed. Review of systems otherwise unremarkable. PAIN: Patient self reports no pain EYES: +left sided visual field deficits EARS, NOSE, & THROAT: No throat pain, or dysphagia, or rhinorrhea CARDIOVASCULAR: Denies chest pain or palpitations PULMONARY: Denies shortness of breath GASTROINTESTINAL: Denies constipation/diarrhea GENITOURINARY: denies dysuria MUSCULOSKELETAL: no joint pain or swelling NEUROLOGICAL:+stroke HEMATOLOGICAL: denies easy bruising SKIN: denies rash PSYCHIATRIC: Unremarkable All other review of systems found to be negative. PHYSICAL EXAMINATION: VITAL SIGNS: Please see below. GENERAL: Pleasant and cooperative. No acute distress. HEENT: PERRL. Extraocular movements intact. Clear conjunctiva, no facial droop CARDIOVASCULAR: Regular rate and rhythm. No murmurs, rubs, or gallops LUNGS: Clear to auscultation bilaterally. No wheezes. No rhonchi ABDOMEN: Soft, nontender, nondistended. Positive bowel sounds. Normal active bowel sounds NEUROLOGICAL: Alert and oriented times three. Cranial nerves II through XII grossly intact. Sensation grossly intact in all 4 extremities +visual field cut on left EXTREMITIES: 5\5 strength bilateral upper extremities. 5\5 strength right lower extremity. 5/5 strength in left lower extremity. SKIN: intact ASSESSMENT:79-year-old M with past medical history of afib who presents status post right TYRE BUILDER stroke PLAN: 1. 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 Neuro: hx of AFib, likely embolic right TYRE BUILDER territory infarct, started back on Pradaxa, also on ASA, monitor for clinical changes concerning for hemorrhagic conversion while on ARU -maintain good BP control, statin/fenofibrate therapy, patient on SSRI already for motor recovery in stroke -will need outpatient neuro f/u 3. Cardiac: hx Afib c/u metoprolol and Pradaxa, medicine consulted to assist in management -recent ECHO + for CHF with recent CXRs concerning for interstitial edema s/p IV lasix, c/u on oral lasix and HCTZ, daily weights, fluid restrict to 1800cc -HTN c/u amlodipine, lisinopril, hydralazine, +PM -Aortic US showed, Mild aneurysmal dilatation distal abdominal aorta 3.8 x 4.2 cm to be followed by his PMD 4. Resp: hx ANSON c/u CPAP, monitor for infection 5. Endo: pmh DM c/u Amaryl, Levemir, and ISS 6. Renal: monitor for HAYDEN in setting of CKD 7.: c/u 7 day course of Cipro, c/u Bacid 8. DVT ppx: on Pradaxa, teds 9. GI ppx: protonix 10. Pain: Tylenol prn and Lyrica 11. Psych: depression c/u Zoloft 11. Dispo: TBD Allergies Coded Allergies: Sulfa (Sulfonamide Antibiotics) (Verified Allergy, Unknown, 07/22/19) PATIENT DOES NOT BELIEVE HE IS ALLERGIC TO THIS MEDICATION. Vital Signs Vital Signs Date Time Temp Pulse Resp B/P (MAP) Pulse Ox O2 Delivery O2 Flow Rate FiO2 07/31/19 11:05 72 148/74 07/31/19 06:00 98.2 18 96 Room Air Laboratory Data CBC/BMP Laboratory Tests 07/31/19 07:10 Labs 24H Laboratory Tests 2 07/30/19 20:28: Bedside Glucose (Misc Panel) 239H 07/31/19 06:24: Bedside Glucose (Misc Panel) 130H 07/31/19 07:10: Immature Granulocyte % (Auto) 0.7, Neutrophils (%) (Auto) 66.3H, Lymphocytes (%) (Auto) 17.9L, Monocytes (%) (Auto) 11.2H, Eosinophils (%) (Auto) 3.2H, Basophils (%) (Auto) 0.7, Neutrophils # (Auto) 7.0, Lymphocytes # (Auto) 1.9, Monocytes # (Auto) 1.2H, Eosinophils # (Auto) 0.3, Basophils # (Auto) 0.1, Nucleated Red Blood Cells % (auto) 0.0, Anion Gap 8, Glomerular Filtration Rate > 60.0, Calcium Level 9.0, Total Bilirubin 0.9, Aspartate Amino Transf (AST/SGOT) 57H, Alanine Aminotransferase (ALT/SGPT) 75, Alkaline Phosphatase 78, Total Protein 7.3, Albumin 2.8L, Albumin/Globulin Ratio 0.62L 07/31/19 11:29: Bedside Glucose (Misc Panel) 247H Current Medications Current Medications Current Medications Medications (Trade) Dose Ordered Sig/Chaitanya Route PRN Reason Start Time Stop Time Status Last Admin Dose Admin Acetaminophen (Tylenol Tab) 650 mg Q4HP PRN PO MILD PAIN (PS 1-4) 07/30/19 14:15 Allopurinol (Zyloprim) 100 mg BID PO 07/30/19 21:00 07/31/19 08:17 Allopurinol (Zyloprim) 100 mg DAILY PO 07/31/19 09:00 07/30/19 15:53 DC Amlodipine Besylate (Norvasc) 5 mg BID PO 07/30/19 21:00 07/31/19 08:16 Aspirin (Ecotrin) 81 mg DAILY PO 07/31/19 09:00 07/31/19 08:19 Atorvastatin Calcium (Lipitor) 20 mg QHS PO 07/30/19 21:00 07/30/19 21:42 Ciprofloxacin (Cipro) 250 mg BID@06,18 PO 07/30/19 18:00 08/02/19 18:01 07/31/19 06:24 Dabigatran (Pradaxa) 150 mg BID PO 07/30/19 21:00 07/31/19 08:16 Dextrose (Dextrose 50%) 25 ml ASDIRECTED PRN IV SEE LABEL COMMENTS 07/30/19 14:15 Docusate Sodium (Colace) 100 mg BID PO 07/30/19 21:00 07/31/19 08:17 Fenofibrate (Tricor) 145 mg QHS PO 07/30/19 21:00 07/30/19 21:42 Furosemide (Lasix) 40 mg DAILY PO 07/31/19 09:00 07/31/19 08:20 Glimepiride (Amaryl) 4 mg BID@0730,1730 PO 07/30/19 17:30 07/31/19 08:18 Glucagon (Glucagon) 1 mg ASDIRECTED PRN SC SEE LABEL COMMENTS 07/30/19 14:15 Glucose (Glucose) 16 GM ASDIRECTED PRN PO SEE LABEL COMMENTS 07/30/19 14:15 Hydralazine HCl (Apresoline) 20 mg TID PO 07/30/19 16:00 07/31/19 08:17 Hydrochlorothiazide (Hydrodiuril) 25 mg DAILY PO 07/31/19 09:00 07/31/19 08:17 Insulin Detemir (Levemir Insulin) 30 units QHS SC 07/30/19 21:00 07/30/19 21:41 Insulin Human Lispro (HumaLOG INSULIN) SEE PROTOCOL TABLE AC SC 07/30/19 17:30 07/31/19 12:09 Insulin Human Lispro (HumaLOG INSULIN) SEE PROTOCOL TABLE QHS SC 07/30/19 21:00 Lactobacillus Acidophilus (Bacid) 1 ea TID PO 07/30/19 16:00 07/31/19 08:16 Lisinopril (Prinivil) 10 mg BID PO 07/30/19 21:00 07/31/19 08:20 Magnesium Hydroxide (Milk Of Magnesia) 30 ml DAILYPRN PRN PO CONSTIPATION 07/30/19 14:15 Magnesium Oxide (Mag-Ox) 400 mg BID PO 07/30/19 21:00 07/31/19 08:18 Metoprolol Tartrate (Lopressor) 50 mg BID PO 07/30/19 21:00 07/31/19 11:05 Nystatin (Mycostatin Powder, Nystop) groin and abdominal folds BID TOP 07/30/19 21:00 07/31/19 08:21 Ondansetron HCl (Zofran) 4 mg Q6HP PRN PO NAUSEA 07/30/19 14:15 Pantoprazole Sodium (Protonix) 40 mg DAILY PO 07/30/19 09:00 07/31/19 08:18 Potassium Chloride (Micro-K Extencaps) 30 meq BID PO 07/30/19 21:00 07/31/19 08:18 Pregabalin (Lyrica) 75 mg TID PO 07/30/19 16:00 07/31/19 08:17 Senna (Senokot) 1 tab QHS PO 07/30/19 21:00 Sertraline HCl (Zoloft) 50 mg QHS PO 07/30/19 21:00 07/30/19 21:42 Tiotropium Alexander (Spiriva Handihaler) 1 inhalation DAILY@08 INH 07/31/19 08:00 07/31/19 07:54 Vitamin D (Vitamin D) 1,000 units DAILY PO 07/31/19 09:00 07/30/19 15:53 DC Vitamin D (Vitamin D) 1,000 units QHS PO 07/30/19 21:00 07/30/19 21:44 KRISTEN DOBBS MD Jul 31, 2019 12:28
--- NOTE | 2019-07-31 12:55 | CR.PDOC ---
General Date of Consultation: Jul 31, 2019 Referring Provider: KRISTEN DOBBS MD Primary Care Physician: Josephine Jolley Consultation REASON FOR CONSULTATION/CHIEF COMPLAINT: To assist with medical management. HISTORY OF PRESENT ILLNESS: This is an 79-year-old male who sustained an acute CVA. Lesion was located to the region of the right posterior cerebral artery with involvement of the medial right temporal and occipital lobes. Principal deficit is that of left homonymous hemianopsia. The patient has had difficulty with his gait and balance due to his visual field deficit. The patient has an underlying history of atrial fibrillation; he had been off of his anticoagulation with Pradaxa preceding this event.. ALLERGIES: Please see below. HOME MEDICATIONS: Please see below. PAST MEDICAL HISTORY: Chronic atrial fibrillation for which he is on chronic anticoagulation, [id number] diabetes mellitus, dyslipidemia, diabetic polyneuropathy, obstructive sleep apnea, COPD, pulmonary hypertension, small abdominal aortic aneurysm of 3.8 x 4.2 cm PAST SURGICAL HISTORY: Surgical history includes transpubic prostatectomy, pacemaker placement, left total hip arthroplasty FAMILY HISTORY: includes hypertension diabetes and heart disease SOCIAL HISTORY: Marital status and/or living arrangements: Employment: retired Tobacco use:denies ETOH: denies Illicit drug use: denies REVIEW OF SYSTEMS: 10 system review is otherwise negative except as stated in the HPI PHYSICAL EXAMINATION: VITAL SIGNS: Please see below. GENERAL: Patient states he essentially had orientation. He has not yet had therapy sessions in the gym.. HEENT: Neck is supple with no adenopathy or thyromegaly. Cardiovascular exam: regular rate and rhythm with a normal S1 and S2. Respiratory: Clear to auscultation. Extremities: No pedal edema or lesions. Neuro: No focal neuromotor deficit, patient has Left visual field deficits, but states he does not have difficulty seeing me at bedside. As he is complaining of poor balance. I did not stand him for gait assessment. LABORATORY DATA: Please see below. ASSESSMENT/PLAN: 1. Right posterior CVA. Patient is placed in the ARU for ongoing occupational and physical therapy related to compensation for left visual field deficit. 2. Chronic atrial fibrillation. Patient is usually anticoagulated with Pradaxa. This is been stopped for a procedure and the patient consequently experienced his CVA. Patient is back on his Pradaxa. If it needs to be stopped the patient should be placed be on some form of bridging therapy. 3. Obstructive sleep apnea. The patient has been compliant with his nasal CPAP. 4. Qmr-mwawmlg-sputndhlt diabetes mellitus. The patient has related polyneuropathy. He'll continue on his usual diabetes management regimen for now. Vital Signs/I&O Vital Signs Date Time Temp Pulse Resp B/P (MAP) Pulse Ox O2 Delivery O2 Flow Rate FiO2 07/31/19 11:05 72 148/74 07/31/19 06:00 98.2 18 96 Room Air I&O- Last 24 Hours up to 6 AM 07/31/19 06:00 Intake Total 660 ml Balance 660 ml Laboratory Data Labs 24H Laboratory Tests 2 07/30/19 20:28: Bedside Glucose (Misc Panel) 239H 07/31/19 06:24: Bedside Glucose (Misc Panel) 130H 07/31/19 07:10: Immature Granulocyte % (Auto) 0.7, Neutrophils (%) (Auto) 66.3H, Lymphocytes (%) (Auto) 17.9L, Monocytes (%) (Auto) 11.2H, Eosinophils (%) (Auto) 3.2H, Basophils (%) (Auto) 0.7, Neutrophils # (Auto) 7.0, Lymphocytes # (Auto) 1.9, Monocytes # (Auto) 1.2H, Eosinophils # (Auto) 0.3, Basophils # (Auto) 0.1, Nucleated Red Blood Cells % (auto) 0.0, Anion Gap 8, Glomerular Filtration Rate > 60.0, Calcium Level 9.0, Total Bilirubin 0.9, Aspartate Amino Transf (AST/SGOT) 57H, Alanine Aminotransferase (ALT/SGPT) 75, Alkaline Phosphatase 78, Total Protein 7.3, Albumin 2.8L, Albumin/Globulin Ratio 0.62L 07/31/19 11:29: Bedside Glucose (Misc Panel) 247H CBC/BMP Laboratory Tests 07/31/19 07:10 Allergies Coded Allergies: Sulfa (Sulfonamide Antibiotics) (Verified Allergy, Unknown, 07/22/19) PATIENT DOES NOT BELIEVE HE IS ALLERGIC TO THIS MEDICATION. Home Medications Scheduled Allopurinol (Allopurinol) 100 Mg Tablet, 100 MG PO BID, (Reported) Amlodipine Besylate (Amlodipine Besylate) 5 Mg Tablet, 5 MG PO BID, #10 Aspirin (Aspirin EC) 81 Mg Tablet.dr, 81 MG PO DAILY for pain, (Reported) ON HOLD DUE TO PROCEDURE ON 07/23/19 Atorvastatin Calcium (Atorvastatin Calcium) 20 Mg Tablet, 20 MG PO QHS, #5 Cholecalciferol (Vitamin D3) (Vitamin D3) 1,000 Unit Tablet, 1,000 UNIT PO QHS, (Reported) Dabigatran Etexilate Mesylate (Pradaxa) 150 Mg Capsule, 150 MG PO BID, (Reported) ON HOLD SINCE 07/17/19 - PROCEDURE SCHEDULE FOR 07/23/19 Fenofibrate Nanocrystallized (Fenofibrate) 145 Mg Tablet, 145 MG PO QHS, (Reported) Furosemide (Furosemide) 40 Mg Tablet, 40 MG PO DAILY, (Reported) Glimepiride (Glimepiride) 4 Mg Tablet, 4 MG PO BID, (Reported) Hydralazine HCl (Hydralazine HCl) 10 Mg Tablet, 20 MG PO TID, #24 Hydrochlorothiazide (Hydrochlorothiazide) 25 Mg Tablet, 25 MG PO DAILY, (Reported) Insulin Glargine,Hum.rec.anlog (Lantus Solostar) 100 Unit/1 Ml Insuln.pen, 40 UNITS SQ QHS, (Reported) Linagliptin (Tradjenta) 5 Mg Tablet, 5 MG PO DAILY, (Reported) Lisinopril (Lisinopril) 10 Mg Tablet, 10 MG PO BID, (Reported) Magnesium Oxide (Magnesium) 400 Mg Capsule, 400 MG PO BID, (Reported) Metoprolol Tartrate (Metoprolol Tartrate) 50 Mg Tablet, 50 MG PO BID, (Reported) Potassium Chloride (Potassium Chloride) 10 Meq Capsule.er, 30 MEQ PO BID, (Rep orted) Pregabalin (Lyrica) 75 Mg Capsule, 75 MG PO TID, (Reported) Sertraline HCl (Sertraline HCl) 50 Mg Tablet, 50 MG PO QHS, (Reported) Tiotropium Ace (Spiriva) 18 Mcg Cap.w.dev, 1 PUFF INH DAILY, (Reported) Scheduled PRN Acetaminophen (Acetaminophen) 500 Mg Tablet, 1,000 MG PO Q6HP PRN for PAIN / FEVER, #10 Nystatin (Nystop) 60 Gm Powder, 1 DOSE TOP BIDP PRN for RASH, #10 PARISA CARTER MD Jul 31, 2019 12:55
[2019-07-31 14:00] VITALS: BP 128/69
[2019-07-31 20:00] VITALS: BP 120/72
[2019-07-31] MEDS: VITAMIN D 1,000 INTERNATIONAL UNITS TABLET PO SCH (21:27)
[2019-07-31] MEDS: SENNA 8.6 MG TAB (SENOKOT) PO SCH (21:29)
[2019-07-31] MEDS: ATORVASTATIN 20 MG TAB PO SCH (21:29)
[2019-07-31] MEDS: FENOFIBRATE 145 MG TAB (TRICOR) PO SCH (21:29)
[2019-07-31] MEDS: SERTRALINE HCL 50 MG TAB PO SCH (21:29)
[2019-07-31] MEDS: LEVEMIR (INSULIN DETEMIR) 1 UNITS/0.01ML SC SCH (21:31)
[2019-08-01 06:00] VITALS: BP 142/80
[2019-08-01] MEDS: CIPROFLOXACIN 250 MG TAB PO SCH ×2 (06:23→18:04)
[2019-08-01] MEDS: TIOTROPIUM INHALER/CAPSULE (SPIRIVA) INH SCH (07:30)
[2019-08-01 07:35] LABS: BASO # 0.1 10^3/uL (0.0-0.2); BASO % 0.8 % (0.0-1.0); EOS # 0.3 10^3/uL (0.0-0.5); EOS % 2.9 % (0.0-3.0); HEMATOCRIT 38.6 % (42.0-52.0); HEMOGLOBIN 12.7 g/dl (13.5-17.5); LYMPH % 19.2 % (24.0-44.0); MEAN CORPUSCULAR HEMOGLOBIN 31.7 pg (27.0-33.0); MEAN CORPUSCULAR HGB CONC 32.9 g/dl (32.0-36.5); MEAN CORPUSCULAR VOLUME 96.3 fl (80.0-96.0); MONO % 10.2 % (0.0-5.0); NEUTROPHILS # 6.7 10^3/uL (1.5-8.5); PLATELET COUNT, AUTOMATED 240 10^3/uL (150-450); RED BLOOD COUNT 4.01 10^6/uL (4.30-6.10); WHITE BLOOD COUNT 10.2 10^3/uL (4.0-10.0)
[2019-08-01 08:11] LABS: BLOOD UREA NITROGEN 29 MG/DL (7-18); CALCIUM LEVEL 8.5 MG/DL (8.8-10.2); CARBON DIOXIDE LEVEL 18 MEQ/L (21-32); CHLORIDE LEVEL 107 MEQ/L (98-107); CREATININE FOR GFR 1.11 MG/DL (0.70-1.30); GLOMERULAR FILTRATION RATE > 60.0 (>35); GLUCOSE, FASTING 133 MG/DL (70-100); POTASSIUM SERUM 4.3 MEQ/L (3.5-5.1); SODIUM LEVEL 135 MEQ/L (136-145)
[2019-08-01] MEDS: DOCUSATE SODIUM 100 MG CAP PO SCH ×2 (09:00→21:58)
[2019-08-01] MEDS: HumaLOG INSULIN (NovoLOG) PER UNIT SC SCH ×4 (09:07→22:02)
[2019-08-01] MEDS: ASPIRIN 81 MG ENTERIC TAB PO SCH (09:08)
[2019-08-01] MEDS: lisinopriL 10 MG TAB PO SCH ×2 (09:08→21:59)
[2019-08-01] MEDS: NYSTATIN 100,000 UNITS/GM TOPICAL PWD 15 GM TOP SCH ×2 (09:08→22:02)
[2019-08-01] MEDS: GLIMEPIRIDE 2 MG TAB PO SCH ×2 (09:09→18:05)
[2019-08-01] MEDS: PREGABALIN 75 MG CAP(LYRICA) PO SCH ×3 (09:09→22:00)
[2019-08-01] MEDS: **hydrALAZINE** 10 MG TAB PO SCH ×3 (09:09→21:59)
[2019-08-01] MEDS: hydroCHLOROthiazide 25 MG TAB PO SCH (09:09)
[2019-08-01] MEDS: LACTOBACILLUS ACIDOPHILUS CAP (BACID) PO SCH ×3 (09:10→21:59)
[2019-08-01] MEDS: DABIGATRAN ETEXILATE 75 MG CAP (PRADAXA) PO SCH ×2 (09:10→21:58)
[2019-08-01] MEDS: PANTOPRAZOLE 40MG TAB (PROTONIX) PO SCH (09:10)
[2019-08-01] MEDS: amLODIPine 5 MG TAB PO SCH ×2 (09:10→22:00)
[2019-08-01] MEDS: POTASSIUM CHLORIDE 10 MEQ SR TABLET PO SCH ×2 (09:10→21:59)
[2019-08-01] MEDS: allopurinoL 100 MG TAB PO SCH ×2 (09:11→22:00)
[2019-08-01] MEDS: METOPROLOL TART 50 MG TAB PO SCH ×2 (09:11→21:58)
[2019-08-01] MEDS: MAGNESIUM OXIDE 400 MG TAB (MAG-OX) PO SCH ×2 (09:11→22:00)
[2019-08-01] MEDS: FUROSEMIDE 40 MG TAB PO SCH (09:11)
[2019-08-01 14:00] VITALS: BP 129/79
[2019-08-01 15:50] VITALS: BP 129/79
[2019-08-01 21:00] VITALS: BP 148/78
[2019-08-01] MEDS: VITAMIN D 1,000 INTERNATIONAL UNITS TABLET PO SCH (21:57)
[2019-08-01] MEDS: SERTRALINE HCL 50 MG TAB PO SCH (21:59)
[2019-08-01] MEDS: SENNA 8.6 MG TAB (SENOKOT) PO SCH (22:00)
[2019-08-01] MEDS: FENOFIBRATE 145 MG TAB (TRICOR) PO SCH (22:00)
[2019-08-01] MEDS: ATORVASTATIN 20 MG TAB PO SCH (22:01)
[2019-08-01] MEDS: LEVEMIR (INSULIN DETEMIR) 1 UNITS/0.01ML SC SCH (22:01)
[2019-08-02 06:00] VITALS: BP 111/56
[2019-08-02] MEDS: CIPROFLOXACIN 250 MG TAB PO SCH ×2 (06:37→17:50)
[2019-08-02] MEDS: TIOTROPIUM INHALER/CAPSULE (SPIRIVA) INH SCH (07:37)
[2019-08-02] MEDS: DABIGATRAN ETEXILATE 75 MG CAP (PRADAXA) PO SCH ×2 (10:08→20:19)
[2019-08-02] MEDS: LACTOBACILLUS ACIDOPHILUS CAP (BACID) PO SCH ×3 (10:08→20:20)
[2019-08-02] MEDS: DOCUSATE SODIUM 100 MG CAP PO SCH ×2 (10:08→20:02)
[2019-08-02] MEDS: HumaLOG INSULIN (NovoLOG) PER UNIT SC SCH ×4 (10:08→20:30)
[2019-08-02] MEDS: POTASSIUM CHLORIDE 10 MEQ SR TABLET PO SCH ×2 (10:09→20:20)
[2019-08-02] MEDS: PREGABALIN 75 MG CAP(LYRICA) PO SCH ×3 (10:09→20:21)
[2019-08-02] MEDS: allopurinoL 100 MG TAB PO SCH ×2 (10:10→20:22)
[2019-08-02] MEDS: FUROSEMIDE 40 MG TAB PO SCH (10:10)
[2019-08-02] MEDS: PANTOPRAZOLE 40MG TAB (PROTONIX) PO SCH (10:10)
[2019-08-02] MEDS: MAGNESIUM OXIDE 400 MG TAB (MAG-OX) PO SCH ×2 (10:10→20:20)
[2019-08-02] MEDS: lisinopriL 10 MG TAB PO SCH ×2 (10:10→20:22)
[2019-08-02] MEDS: hydroCHLOROthiazide 25 MG TAB PO SCH (10:10)
[2019-08-02] MEDS: METOPROLOL TART 50 MG TAB PO SCH ×2 (10:11→20:23)
[2019-08-02] MEDS: amLODIPine 5 MG TAB PO SCH ×2 (10:11→20:21)
[2019-08-02] MEDS: ASPIRIN 81 MG ENTERIC TAB PO SCH (10:11)
[2019-08-02] MEDS: **hydrALAZINE** 10 MG TAB PO SCH ×3 (10:11→20:22)
[2019-08-02] MEDS: GLIMEPIRIDE 2 MG TAB PO SCH ×2 (10:19→17:51)
[2019-08-02] MEDS: NYSTATIN 100,000 UNITS/GM TOPICAL PWD 15 GM TOP SCH ×2 (10:19→21:00)
[2019-08-02 14:00] VITALS: BP 116/59
[2019-08-02] MEDS: SENNA 8.6 MG TAB (SENOKOT) PO SCH (20:03)
[2019-08-02] MEDS: ATORVASTATIN 20 MG TAB PO SCH (20:20)
[2019-08-02] MEDS: VITAMIN D 1,000 INTERNATIONAL UNITS TABLET PO SCH (20:20)
[2019-08-02] MEDS: FENOFIBRATE 145 MG TAB (TRICOR) PO SCH (20:20)
[2019-08-02] MEDS: SERTRALINE HCL 50 MG TAB PO SCH (20:21)
[2019-08-02 20:30] VITALS: BP 139/73
[2019-08-02] MEDS: LEVEMIR (INSULIN DETEMIR) 1 UNITS/0.01ML SC SCH (20:33)
[2019-08-03 06:00] VITALS: BP 145/81
[2019-08-03] MEDS: TIOTROPIUM INHALER/CAPSULE (SPIRIVA) INH SCH (08:00)
[2019-08-03] MEDS: LACTOBACILLUS ACIDOPHILUS CAP (BACID) PO SCH ×3 (09:12→21:19)
[2019-08-03] MEDS: PREGABALIN 75 MG CAP(LYRICA) PO SCH ×3 (09:12→21:20)
[2019-08-03] MEDS: DOCUSATE SODIUM 100 MG CAP PO SCH ×2 (09:12→21:00)
[2019-08-03] MEDS: MAGNESIUM OXIDE 400 MG TAB (MAG-OX) PO SCH ×2 (09:12→21:20)
[2019-08-03] MEDS: DABIGATRAN ETEXILATE 75 MG CAP (PRADAXA) PO SCH ×2 (09:12→21:20)
[2019-08-03] MEDS: METOPROLOL TART 50 MG TAB PO SCH ×2 (09:12→21:20)
[2019-08-03] MEDS: **hydrALAZINE** 10 MG TAB PO SCH ×3 (09:12→21:22)
[2019-08-03] MEDS: amLODIPine 5 MG TAB PO SCH ×2 (09:13→21:21)
[2019-08-03] MEDS: GLIMEPIRIDE 2 MG TAB PO SCH ×2 (09:13→16:49)
[2019-08-03] MEDS: FUROSEMIDE 40 MG TAB PO SCH (09:13)
[2019-08-03] MEDS: hydroCHLOROthiazide 25 MG TAB PO SCH (09:14)
[2019-08-03] MEDS: lisinopriL 10 MG TAB PO SCH ×2 (09:14→21:21)
[2019-08-03] MEDS: PANTOPRAZOLE 40MG TAB (PROTONIX) PO SCH (09:14)
[2019-08-03] MEDS: ASPIRIN 81 MG ENTERIC TAB PO SCH (09:14)
[2019-08-03] MEDS: allopurinoL 100 MG TAB PO SCH ×2 (09:14→21:20)
[2019-08-03] MEDS: HumaLOG INSULIN (NovoLOG) PER UNIT SC SCH ×4 (09:15→21:00)
[2019-08-03] MEDS: POTASSIUM CHLORIDE 10 MEQ SR TABLET PO SCH ×2 (09:15→21:19)
[2019-08-03] MEDS: NYSTATIN 100,000 UNITS/GM TOPICAL PWD 15 GM TOP SCH ×2 (09:16→21:32)
--- NOTE | 2019-08-03 12:37 | IPN ---
DATE: 08/02/2019 This is an 79-year-old male who sustained an acute CVA. His principal deficit is that of left homonymous hemianopsia. He has difficulty with his gait and balance due to visual field deficit and is on ARU for ongoing occupational physical therapy related to compensation for loss of field deficit. He has chronic atrial fib. He is on Pradaxa and it has been stopped for a procedure which is when he had his CVA. He is now placed back on it, obstructive sleep apnea on nasal CPAP, non-insulin dependant diabetes on Insulin and Levemir. White count is 10.2, hemoglobin is 12.7 and 38.6, sodium 135, potassium 4.3, chloride 107, CO2 18, BUN 29, creatinine 111 improved from 33 and 1.2. Vital signs are stable. Blood pressure 139/73, pulse 70, respirations 18, temperature 97.7, Oxygen sat 94 on room air. Patient is alert and oriented times three. Neck is supple without thyromegaly or goiters. No bruits. Chest is clear to auscultation without wheeze or retraction. Heart is regular. Abdomen is benign. Bowel sounds are positive. Extremities no cyanosis, clubbing, or edema. IMPRESSION/PLAN: 1. Right posterior CVA. Continue ongoing occupational and physical therapy related to compensation for left visual field deficit. Continue anticoagulation with Pradaxa. 2. Obstructive sleep apnea. Continues on nasal CPAP. 3. Non-insulin dependant diabetes. Continue Levemir Check blood sugar. Consistent carbohydrate diet.
[2019-08-03 14:00] VITALS: BP 142/69
[2019-08-03 20:00] VITALS: BP 130/67
[2019-08-03] MEDS: SENNA 8.6 MG TAB (SENOKOT) PO SCH (21:00)
[2019-08-03] MEDS: LEVEMIR (INSULIN DETEMIR) 1 UNITS/0.01ML SC SCH (21:18)
[2019-08-03] MEDS: ATORVASTATIN 20 MG TAB PO SCH (21:19)
[2019-08-03] MEDS: VITAMIN D 1,000 INTERNATIONAL UNITS TABLET PO SCH (21:19)
[2019-08-03] MEDS: FENOFIBRATE 145 MG TAB (TRICOR) PO SCH (21:20)
[2019-08-03] MEDS: SERTRALINE HCL 50 MG TAB PO SCH (21:20)
[2019-08-04 05:50] VITALS: BP 141/66
[2019-08-04] MEDS: HumaLOG INSULIN (NovoLOG) PER UNIT SC SCH ×4 (07:30→21:00)
[2019-08-04] MEDS: GLIMEPIRIDE 2 MG TAB PO SCH ×2 (07:30→17:07)
[2019-08-04] MEDS: PREGABALIN 75 MG CAP(LYRICA) PO SCH ×3 (08:51→21:03)
[2019-08-04] MEDS: LACTOBACILLUS ACIDOPHILUS CAP (BACID) PO SCH ×3 (08:51→21:03)
[2019-08-04] MEDS: MAGNESIUM OXIDE 400 MG TAB (MAG-OX) PO SCH ×2 (08:51→21:03)
[2019-08-04] MEDS: amLODIPine 5 MG TAB PO SCH ×2 (08:51→21:02)
[2019-08-04] MEDS: PANTOPRAZOLE 40MG TAB (PROTONIX) PO SCH (08:51)
[2019-08-04] MEDS: allopurinoL 100 MG TAB PO SCH ×2 (08:52→21:03)
[2019-08-04] MEDS: METOPROLOL TART 50 MG TAB PO SCH ×2 (08:52→21:03)
[2019-08-04] MEDS: POTASSIUM CHLORIDE 10 MEQ SR TABLET PO SCH ×2 (08:52→21:04)
[2019-08-04] MEDS: **hydrALAZINE** 10 MG TAB PO SCH ×3 (08:52→21:02)
[2019-08-04] MEDS: ASPIRIN 81 MG ENTERIC TAB PO SCH (08:52)
[2019-08-04] MEDS: hydroCHLOROthiazide 25 MG TAB PO SCH (08:52)
[2019-08-04] MEDS: DOCUSATE SODIUM 100 MG CAP PO SCH ×2 (08:53→21:00)
[2019-08-04] MEDS: lisinopriL 10 MG TAB PO SCH ×2 (08:53→21:03)
[2019-08-04] MEDS: FUROSEMIDE 40 MG TAB PO SCH (08:53)
[2019-08-04] MEDS: DABIGATRAN ETEXILATE 75 MG CAP (PRADAXA) PO SCH ×2 (08:53→21:04)
[2019-08-04] MEDS: NYSTATIN 100,000 UNITS/GM TOPICAL PWD 15 GM TOP SCH ×2 (08:54→21:12)
[2019-08-04] MEDS: TIOTROPIUM INHALER/CAPSULE (SPIRIVA) INH SCH (10:04)
[2019-08-04 13:19] LABS: BASO # 0.1 10^3/uL (0.0-0.2); BASO % 0.9 % (0.0-1.0); EOS # 0.2 10^3/uL (0.0-0.5); EOS % 2.4 % (0.0-3.0); HEMATOCRIT 41.5 % (42.0-52.0); HEMOGLOBIN 13.4 g/dl (13.5-17.5); LYMPH # 2.1 10^3/uL (1.5-5.0); LYMPH % 20.7 % (24.0-44.0); MEAN CORPUSCULAR HEMOGLOBIN 31.5 pg (27.0-33.0); MEAN CORPUSCULAR HGB CONC 32.3 g/dl (32.0-36.5); MEAN CORPUSCULAR VOLUME 97.6 fl (80.0-96.0); MONO # 0.8 10^3/uL (0.0-0.8); MONO % 8.2 % (0.0-5.0); NEUTROPHILS # 6.7 10^3/uL (1.5-8.5); NEUTROPHILS % 67.1 % (36.0-66.0); PLATELET COUNT, AUTOMATED 318 10^3/uL (150-450); RED BLOOD COUNT 4.25 10^6/uL (4.30-6.10)
[2019-08-04 13:50] LABS: BLOOD UREA NITROGEN 23 MG/DL (7-18); CALCIUM LEVEL 9.3 MG/DL (8.8-10.2); CARBON DIOXIDE LEVEL 25 MEQ/L (21-32); CHLORIDE LEVEL 104 MEQ/L (98-107); CREATININE FOR GFR 1.18 MG/DL (0.70-1.30); GLOMERULAR FILTRATION RATE > 60.0 (>35); GLUCOSE, FASTING 96 MG/DL (70-100); SODIUM LEVEL 138 MEQ/L (136-145)
[2019-08-04 14:00] VITALS: BP 113/66
[2019-08-04 20:00] VITALS: BP 131/76
[2019-08-04] MEDS: SENNA 8.6 MG TAB (SENOKOT) PO SCH (21:00)
[2019-08-04] MEDS: FENOFIBRATE 145 MG TAB (TRICOR) PO SCH (21:03)
[2019-08-04] MEDS: VITAMIN D 1,000 INTERNATIONAL UNITS TABLET PO SCH (21:03)
[2019-08-04] MEDS: ATORVASTATIN 20 MG TAB PO SCH (21:03)
[2019-08-04] MEDS: SERTRALINE HCL 50 MG TAB PO SCH (21:03)
[2019-08-04] MEDS: LEVEMIR (INSULIN DETEMIR) 1 UNITS/0.01ML SC SCH (21:07)
[2019-08-05 06:00] VITALS: BP 145/86
[2019-08-05] MEDS: METOPROLOL TART 50 MG TAB PO SCH ×2 (07:36→21:42)
[2019-08-05] MEDS: **hydrALAZINE** 10 MG TAB PO SCH ×3 (07:36→21:42)
[2019-08-05] MEDS: MAGNESIUM OXIDE 400 MG TAB (MAG-OX) PO SCH ×2 (07:36→21:40)
[2019-08-05] MEDS: lisinopriL 10 MG TAB PO SCH ×2 (07:37→21:42)
[2019-08-05] MEDS: amLODIPine 5 MG TAB PO SCH ×2 (07:37→21:42)
[2019-08-05] MEDS: GLIMEPIRIDE 2 MG TAB PO SCH ×2 (07:37→17:02)
[2019-08-05] MEDS: FUROSEMIDE 40 MG TAB PO SCH (07:37)
[2019-08-05] MEDS: HumaLOG INSULIN (NovoLOG) PER UNIT SC SCH ×4 (07:38→21:00)
[2019-08-05] MEDS: allopurinoL 100 MG TAB PO SCH ×2 (07:38→21:40)
[2019-08-05] MEDS: hydroCHLOROthiazide 25 MG TAB PO SCH (07:38)
[2019-08-05] MEDS: LACTOBACILLUS ACIDOPHILUS CAP (BACID) PO SCH ×3 (07:38→21:39)
[2019-08-05] MEDS: DABIGATRAN ETEXILATE 75 MG CAP (PRADAXA) PO SCH ×2 (07:38→21:41)
[2019-08-05] MEDS: PREGABALIN 75 MG CAP(LYRICA) PO SCH ×3 (07:38→21:40)
[2019-08-05] MEDS: POTASSIUM CHLORIDE 10 MEQ SR TABLET PO SCH ×2 (07:38→21:40)
[2019-08-05] MEDS: ASPIRIN 81 MG ENTERIC TAB PO SCH (07:39)
[2019-08-05] MEDS: NYSTATIN 100,000 UNITS/GM TOPICAL PWD 15 GM TOP SCH ×2 (07:39→21:00)
[2019-08-05] MEDS: DOCUSATE SODIUM 100 MG CAP PO SCH ×2 (07:39→21:00)
[2019-08-05] MEDS: PANTOPRAZOLE 40MG TAB (PROTONIX) PO SCH (07:39)
[2019-08-05] MEDS: TIOTROPIUM INHALER/CAPSULE (SPIRIVA) INH SCH (07:43)
[2019-08-05 14:00] VITALS: BP 123/57
[2019-08-05 20:00] VITALS: BP 133/67
[2019-08-05] MEDS: SENNA 8.6 MG TAB (SENOKOT) PO SCH (21:00)
[2019-08-05] MEDS: ATORVASTATIN 20 MG TAB PO SCH (21:40)
[2019-08-05] MEDS: VITAMIN D 1,000 INTERNATIONAL UNITS TABLET PO SCH (21:40)
[2019-08-05] MEDS: SERTRALINE HCL 50 MG TAB PO SCH (21:40)
[2019-08-05] MEDS: FENOFIBRATE 145 MG TAB (TRICOR) PO SCH (21:40)
[2019-08-05] MEDS: LEVEMIR (INSULIN DETEMIR) 1 UNITS/0.01ML SC SCH (21:41)
[2019-08-05 23:09] VITALS: BP 129/79
[2019-08-06 06:00] VITALS: BP 139/78
[2019-08-06] MEDS: TIOTROPIUM INHALER/CAPSULE (SPIRIVA) INH SCH (07:21)
[2019-08-06] MEDS: GLIMEPIRIDE 2 MG TAB PO SCH ×2 (07:30→17:04)
[2019-08-06] MEDS: HumaLOG INSULIN (NovoLOG) PER UNIT SC SCH ×4 (07:30→21:00)
[2019-08-06] MEDS: LACTOBACILLUS ACIDOPHILUS CAP (BACID) PO SCH ×3 (08:38→21:18)
[2019-08-06] MEDS: DABIGATRAN ETEXILATE 75 MG CAP (PRADAXA) PO SCH ×2 (08:38→21:16)
[2019-08-06] MEDS: amLODIPine 5 MG TAB PO SCH ×2 (08:39→21:18)
[2019-08-06] MEDS: DOCUSATE SODIUM 100 MG CAP PO SCH ×2 (08:39→21:17)
[2019-08-06] MEDS: **hydrALAZINE** 10 MG TAB PO SCH ×3 (08:39→21:18)
[2019-08-06] MEDS: METOPROLOL TART 50 MG TAB PO SCH ×2 (08:39→21:16)
[2019-08-06] MEDS: PREGABALIN 75 MG CAP(LYRICA) PO SCH ×3 (08:39→21:17)
[2019-08-06] MEDS: FUROSEMIDE 40 MG TAB PO SCH (08:39)
[2019-08-06] MEDS: hydroCHLOROthiazide 25 MG TAB PO SCH (08:40)
[2019-08-06] MEDS: PANTOPRAZOLE 40MG TAB (PROTONIX) PO SCH (08:40)
[2019-08-06] MEDS: POTASSIUM CHLORIDE 10 MEQ SR TABLET PO SCH ×2 (08:40→21:17)
[2019-08-06] MEDS: allopurinoL 100 MG TAB PO SCH ×2 (08:40→21:18)
[2019-08-06] MEDS: MAGNESIUM OXIDE 400 MG TAB (MAG-OX) PO SCH ×2 (08:40→21:17)
[2019-08-06] MEDS: ASPIRIN 81 MG ENTERIC TAB PO SCH (08:40)
[2019-08-06] MEDS: lisinopriL 10 MG TAB PO SCH ×2 (08:41→21:17)
[2019-08-06] MEDS: NYSTATIN 100,000 UNITS/GM TOPICAL PWD 15 GM TOP SCH ×2 (09:08→21:00)
--- NOTE | 2019-08-06 11:32 | IPNPDOC ---
PM&R Progress Note DATE OF SERVICE: Aug 01, 2019 Controller Instructor Progress Note Subjective: Patient reporting he is feeling well this morning and has no complaints. REVIEW OF SYSTEMS: The following is a completed review of systems and has been reviewed. Review of systems otherwise unremarkable. PAIN: Patient self reports no pain EYES: +left sided visual field deficits EARS, NOSE, & THROAT: No throat pain, or dysphagia, or rhinorrhea CARDIOVASCULAR: Denies chest pain or palpitations PULMONARY: Denies shortness of breath GASTROINTESTINAL: Denies constipation/diarrhea GENITOURINARY: denies dysuria MUSCULOSKELETAL: no joint pain or swelling NEUROLOGICAL:+stroke HEMATOLOGICAL: denies easy bruising SKIN: denies rash PSYCHIATRIC: Unremarkable All other review of systems found to be negative. PHYSICAL EXAMINATION: VITAL SIGNS: Please see below. GENERAL: Pleasant and cooperative. No acute distress. HEENT: PERRL. Extraocular movements intact. Clear conjunctiva, no facial droop CARDIOVASCULAR: Regular rate and rhythm. No murmurs, rubs, or gallops LUNGS: Clear to auscultation bilaterally. No wheezes. No rhonchi ABDOMEN: Soft, nontender, nondistended. Positive bowel sounds. Normal active bowel sounds NEUROLOGICAL: Alert and oriented times three. Cranial nerves II through XII grossly intact. Sensation grossly intact in all 4 extremities +visual field cut on left EXTREMITIES: 5\5 strength bilateral upper extremities. 5\5 strength right lower extremity. 5/5 strength in left lower extremity. 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 Cardiac: hx Afib c/u metoprolol and Pradaxa, medicine consulted to assist in management -recent ECHO + for CHF with recent CXRs concerning for interstitial edema s/p IV lasix, c/u on oral lasix and HCTZ, daily weights, fluid restrict to 1800cc -HTN c/u amlodipine, lisinopril, hydralazine, +PM -Aortic US showed, Mild aneurysmal dilatation distal abdominal aorta 3.8 x 4.2 cm to be followed by his PMD 4. Resp: hx ANSON c/u CPAP, monitor for infection 5. Endo: pmh DM c/u Amaryl, Levemir, and ISS 6. Renal: monitor for HAYDEN in setting of CKD 7.: c/u 7 day course of Cipro, c/u Bacid 8. DVT ppx: on Pradaxa, teds 9. GI ppx: protonix 10. Pain: Tylenol prn and Lyrica 11. Psych: depression c/u Zoloft 11. Dispo: TBD Allergies Coded Allergies: Sulfa (Sulfonamide Antibiotics) (Verified Allergy, Unknown, 07/22/19) PATIENT DOES NOT BELIEVE HE IS ALLERGIC TO THIS MEDICATION. Vital Signs Vital Signs Date Time Temp Pulse Resp B/P (MAP) Pulse Ox O2 Delivery O2 Flow Rate FiO2 08/06/19 08:41 139/78 08/06/19 08:39 60 08/06/19 06:00 98.1 18 96 NIPPV (BIPAP/CPAP) Laboratory Data Labs 24H Laboratory Tests 2 08/05/19 11:57: Bedside Glucose (Misc Panel) 142H 08/05/19 16:44: Bedside Glucose (Misc Panel) 158H 08/05/19 19:59: Bedside Glucose (Misc Panel) 157H 08/06/19 06:08: Bedside Glucose (Misc Panel) 57L 08/06/19 06:27: Bedside Glucose (Misc Panel) 73L Current Medications Current Medications Current Medications Medications (Trade) Dose Ordered Sig/Chaitanya Route PRN Reason Start Time Stop Time Status Last Admin Dose Admin Acetaminophen (Tylenol Tab) 650 mg Q4HP PRN PO MILD PAIN (PS 1-4) 07/30/19 14:15 Allopurinol (Zyloprim) 100 mg BID PO 07/30/19 21:00 08/06/19 08:40 Allopurinol (Zyloprim) 100 mg DAILY PO 07/31/19 09:00 07/30/19 15:53 DC Amlodipine Besylate (Norvasc) 5 mg BID PO 07/30/19 21:00 08/06/19 08:39 Aspirin (Ecotrin) 81 mg DAILY PO 07/31/19 09:00 08/06/19 08:40 Atorvastatin Calcium (Lipitor) 20 mg QHS PO 07/30/19 21:00 08/05/19 21:40 Ciprofloxacin (Cipro) 250 mg BID@06,18 PO 07/30/19 18:00 08/02/19 18:01 DC 08/02/19 17:50 Dabigatran (Pradaxa) 150 mg BID PO 07/30/19 21:00 08/06/19 08:38 Dextrose (Dextrose 50%) 25 ml ASDIRECTED PRN IV SEE LABEL COMMENTS 07/30/19 14:15 Docusate Sodium (Colace) 100 mg BID PO 07/30/19 21:00 08/06/19 08:39 Fenofibrate (Tricor) 145 mg QHS PO 07/30/19 21:00 08/05/19 21:40 Furosemide (Lasix) 40 mg DAILY PO 07/31/19 09:00 08/06/19 08:39 Glimepiride (Amaryl) 4 mg BID@0730,1730 PO 07/30/19 17:30 08/05/19 17:02 Glucagon (Glucagon) 1 mg ASDIRECTED PRN SC SEE LABEL COMMENTS 07/30/19 14:15 Glucose (Glucose) 16 GM ASDIRECTED PRN PO SEE LABEL COMMENTS 07/30/19 14:15 Hydralazine HCl (Apresoline) 20 mg TID PO 07/30/19 16:00 08/06/19 08:39 Hydrochlorothiazide (Hydrodiuril) 25 mg DAILY PO 07/31/19 09:00 08/06/19 08:40 Insulin Detemir (Levemir Insulin) 30 units QHS SC 07/30/19 21:00 07/31/19 12:27 DC 07/30/19 21:41 Insulin Detemir (Levemir Insulin) 34 units QHS SC 07/31/19 21:00 08/05/19 21:41 Insulin Human Lispro (HumaLOG INSULIN) SEE PROTOCOL TABLE AC SC 07/30/19 17:30 08/05/19 17:04 Insulin Human Lispro (HumaLOG INSULIN) SEE PROTOCOL TABLE QHS SC 07/30/19 21:00 08/01/19 22:02 Lactobacillus Acidophilus (Bacid) 1 ea TID PO 07/30/19 16:00 08/06/19 08:38 Lisinopril (Prinivil) 10 mg BID PO 07/30/19 21:00 08/06/19 08:41 Magnesium Hydroxide (Milk Of Magnesia) 30 ml DAILYPRN PRN PO CONSTIPATION 07/30/19 14:15 Magnesium Oxide (Mag-Ox) 400 mg BID PO 07/30/19 21:00 08/06/19 08:40 Metoprolol Tartrate (Lopressor) 50 mg BID PO 07/30/19 21:00 08/06/19 08:39 Nystatin (Mycostatin Powder, Nystop) groin and abdominal folds BID TOP 07/30/19 21:00 08/06/19 09:08 Ondansetron HCl (Zofran) 4 mg Q6HP PRN PO NAUSEA 07/30/19 14:15 Pantoprazole Sodium (Protonix) 40 mg DAILY PO 07/30/19 09:00 08/06/19 08:40 Potassium Chloride (Micro-K Extencaps) 30 meq BID PO 07/30/19 21:00 08/06/19 08:40 Pregabalin (Lyrica) 75 mg TID PO 07/30/19 16:00 08/06/19 08:39 Senna (Senokot) 1 tab QHS PO 07/30/19 21:00 08/01/19 22:00 Sertraline HCl (Zoloft) 50 mg QHS PO 07/30/19 21:00 08/05/19 21:40 Tiotropium [place] (Spiriva Handihaler) 1 inhalation DAILY@08 INH 07/31/19 08:00 08/06/19 07:21 Vitamin D (Vitamin D) 1,000 units DAILY PO 07/31/19 09:00 07/30/19 15:53 DC Vitamin D (Vitamin D) 1,000 units QHS PO 07/30/19 21:00 08/05/19 21:40 KRISTEN DOBBS MD Aug 06, 2019 11:32
--- NOTE | 2019-08-06 11:34 | IPNPDOC ---
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 REVIEW OF SYSTEMS: The following is a completed review of systems and has been reviewed. Review of systems otherwise unremarkable. PAIN: Patient self reports no pain EYES: +left sided visual field deficits EARS, NOSE, & THROAT: No throat pain, or dysphagia, or rhinorrhea CARDIOVASCULAR: Denies chest pain or palpitations PULMONARY: Denies shortness of breath GASTROINTESTINAL: Denies constipation/diarrhea GENITOURINARY: denies dysuria MUSCULOSKELETAL: no joint pain or swelling NEUROLOGICAL:+stroke HEMATOLOGICAL: denies easy bruising SKIN: denies rash PSYCHIATRIC: Unremarkable All other review of systems found to be negative. PHYSICAL EXAMINATION: VITAL SIGNS: Please see below. GENERAL: Pleasant and cooperative. No acute distress. HEENT: PERRL. Extraocular movements intact. Clear conjunctiva, no facial droop CARDIOVASCULAR: Regular rate and rhythm. No murmurs, rubs, or gallops LUNGS: Clear to auscultation bilaterally. No wheezes. No rhonchi ABDOMEN: Soft, nontender, nondistended. Positive bowel sounds. Normal active bowel sounds NEUROLOGICAL: Alert and oriented times three. Cranial nerves II through XII g rossly intact. Sensation grossly intact in all 4 extremities +visual field cut on left EXTREMITIES: 5\5 strength bilateral upper extremities. 5\5 strength right lower extremity. 5/5 strength in left lower extremity. 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 Neuro: hx of AFib, likely embolic right BELT CHANGER territory infarct, started back o n Pradaxa, also on ASA, monitor for clinical changes concerning for hemorrhagic conversion while on ARU-clinically stable -maintain good BP control, statin/fenofibrate therapy, patient on SSRI already for motor recovery in stroke -will need outpatient neuro f/u 3. Cardiac: hx Afib c/u metoprolol and Pradaxa, medicine consulted to assist in management -recent ECHO + for CHF with recent CXRs concerning for interstitial edema s/p IV lasix, c/u on oral lasix and HCTZ, daily weights, fluid restrict to 1800cc -HTN c/u amlodipine, lisinopril, hydralazine, +PM -Aortic US showed, Mild aneurysmal dilatation distal abdominal aorta 3.8 x 4.2 cm to be followed by his PMD -will refer to cardiology 4. Resp: hx ANSON c/u CPAP, monitor for infection -will refer to pulmonology 5. Endo: pmh DM c/u Amaryl, Levemir, and ISS 6. Renal: monitor for HAYDEN in setting of CKD 7.: c/u 7 day course of Cipro, c/u Bacid 8. DVT ppx: on Pradaxa, teds 9. GI ppx: protonix 10. Pain: Tylenol prn and Lyrica 11. Psych: depression c/u Zoloft 11. Dispo: TBD Allergies Coded Allergies: Sulfa (Sulfonamide Antibiotics) (Verified Allergy, Unknown, 07/22/19) PATIENT DOES NOT BELIEVE HE IS ALLERGIC TO THIS MEDICATION. Vital Signs Vital Signs Date Time Temp Pulse Resp B/P (MAP) Pulse Ox O2 Delivery O2 Flow Rate FiO2 08/06/19 08:41 139/78 08/06/19 08:39 60 08/06/19 06:00 98.1 18 96 NIPPV (BIPAP/CPAP) Laboratory Data Labs 24H Laboratory Tests 2 08/05/19 11:57: Bedside Glucose (Misc Panel) 142H 08/05/19 16:44: Bedside Glucose (Misc Panel) 158H 08/05/19 19:59: Bedside Glucose (Misc Panel) 157H 08/06/19 06:08: Bedside Glucose (Misc Panel) 57L 08/06/19 06:27: Bedside Glucose (Misc Panel) 73L Current Medications Current Medications Current Medications Medications (Trade) Dose Ordered Sig/Chaitanya Route PRN Reason Start Time Stop Time Status Last Admin Dose Admin Acetaminophen (Tylenol Tab) 650 mg Q4HP PRN PO MILD PAIN (PS 1-4) 07/30/19 14:15 Allopurinol (Zyloprim) 100 mg BID PO 07/30/19 21:00 1/2/20 08:40 Allopurinol (Zyloprim) 100 mg DAILY PO 07/31/19 09:00 07/30/19 15:53 DC Amlodipine Besylate (Norvasc) 5 mg BID PO 07/30/19 21:00 08/06/19 08:39 Aspirin (Ecotrin) 81 mg DAILY PO 07/31/19 09:00 08/06/19 08:40 Atorvastatin Calcium (Lipitor) 20 mg QHS PO 07/30/19 21:00 08/05/19 21:40 Ciprofloxacin (Cipro) 250 mg BID@06,18 PO 07/30/19 18:00 08/02/19 18:01 DC 08/02/19 17:50 Dabigatran (Pradaxa) 150 mg BID PO 07/30/19 21:00 08/06/19 08:38 Dextrose (Dextrose 50%) 25 ml ASDIRECTED PRN IV SEE LABEL COMMENTS 07/30/19 14:15 Docusate Sodium (Colace) 100 mg BID PO 07/30/19 21:00 08/06/19 08:39 Fenofibrate (Tricor) 145 mg QHS PO 07/30/19 21:00 08/05/19 21:40 Furosemide (Lasix) 40 mg DAILY PO 07/31/19 09:00 08/06/19 08:39 Glimepiride (Amaryl) 4 mg BID@0730,1730 PO 07/30/19 17:30 08/05/19 17:02 Glucagon (Glucagon) 1 mg ASDIRECTED PRN SC SEE LABEL COMMENTS 07/30/19 14:15 Glucose (Glucose) 16 GM ASDIRECTED PRN PO SEE LABEL COMMENTS 07/30/19 14:15 Hydralazine HCl (Apresoline) 20 mg TID PO 07/30/19 16:00 08/06/19 08:39 Hydrochlorothiazide (Hydrodiuril) 25 mg DAILY PO 07/31/19 09:00 08/06/19 08:40 Insulin Detemir (Levemir Insulin) 30 units QHS SC 07/30/19 21:00 07/31/19 12:27 DC 07/30/19 21:41 Insulin Detemir (Levemir Insulin) 34 units QHS SC 07/31/19 21:00 08/05/19 21:41 Insulin Human Lispro (HumaLOG INSULIN) SEE PROTOCOL TABLE AC SC 07/30/19 17:30 08/05/19 17:04 Insulin Human Lispro (HumaLOG INSULIN) SEE PROTOCOL TABLE QHS SC 07/30/19 21:00 08/01/19 22:02 Lactobacillus Acidophilus (Bacid) 1 ea TID PO 07/30/19 16:00 08/06/19 08:38 Lisinopril (Prinivil) 10 mg BID PO 07/30/19 21:00 08/06/19 08:41 Magnesium Hydroxide (Milk Of Magnesia) 30 ml DAILYPRN PRN PO CONSTIPATION 07/30/19 14:15 Magnesium Oxide (Mag-Ox) 400 mg BID PO 07/30/19 21:00 08/06/19 08:40 Metoprolol Tartrate (Lopressor) 50 mg BID PO 07/30/19 21:00 08/06/19 08:39 Nystatin (Mycostatin Powder, Nystop) groin and abdominal folds BID TOP 07/30/19 21:00 08/06/19 09:08 Ondansetron HCl (Zofran) 4 mg Q6HP PRN PO NAUSEA 07/30/19 14:15 Pantoprazole Sodium (Protonix) 40 mg DAILY PO 07/30/19 09:00 08/06/19 08:40 Potassium Chloride (Micro-K Extencaps) 30 meq BID PO 07/30/19 21:00 08/06/19 08:40 Pregabalin (Lyrica) 75 mg TID PO 07/30/19 16:00 08/06/19 08:39 Senna (Senokot) 1 tab QHS PO 07/30/19 21:00 08/01/19 22:00 Sertraline HCl (Zoloft) 50 mg QHS PO 07/30/19 21:00 08/05/19 21:40 Tiotropium [place] (Spiriva Handihaler) 1 inhalation DAILY@08 INH 07/31/19 08:00 08/06/19 07:21 Vitamin D (Vitamin D) 1,000 units DAILY PO 07/31/19 09:00 07/30/19 15:53 DC Vitamin D (Vitamin D) 1,000 units QHS PO 07/30/19 21:00 08/05/19 21:40 KRISTEN DOBBS MD Aug 06, 2019 11:33
[2019-08-06 14:00] VITALS: BP 134/79
[2019-08-06 20:30] VITALS: BP 135/71
[2019-08-06] MEDS: FENOFIBRATE 145 MG TAB (TRICOR) PO SCH (21:16)
[2019-08-06] MEDS: SERTRALINE HCL 50 MG TAB PO SCH (21:17)
[2019-08-06] MEDS: VITAMIN D 1,000 INTERNATIONAL UNITS TABLET PO SCH (21:17)
[2019-08-06] MEDS: ATORVASTATIN 20 MG TAB PO SCH (21:17)
[2019-08-06] MEDS: SENNA 8.6 MG TAB (SENOKOT) PO SCH (21:17)
[2019-08-06] MEDS: LEVEMIR (INSULIN DETEMIR) 1 UNITS/0.01ML SC SCH (21:20)
[2019-08-07 06:00] VITALS: BP 140/75
[2019-08-07 06:54] LABS: BASO # 0.1 10^3/uL (0.0-0.2); BASO % 0.7 % (0.0-1.0); EOS # 0.2 10^3/uL (0.0-0.5); HEMATOCRIT 38.9 % (42.0-52.0); HEMOGLOBIN 12.2 g/dl (13.5-17.5); LYMPH # 1.8 10^3/uL (1.5-5.0); LYMPH % 16.5 % (24.0-44.0); MEAN CORPUSCULAR HEMOGLOBIN 30.7 pg (27.0-33.0); MEAN CORPUSCULAR HGB CONC 31.4 g/dl (32.0-36.5); MEAN CORPUSCULAR VOLUME 97.7 fl (80.0-96.0); MONO # 0.9 10^3/uL (0.0-0.8); MONO % 7.9 % (0.0-5.0); NEUTROPHILS # 7.9 10^3/uL (1.5-8.5); NEUTROPHILS % 72.3 % (36.0-66.0); PLATELET COUNT, AUTOMATED 255 10^3/uL (150-450); RED BLOOD COUNT 3.98 10^6/uL (4.30-6.10); WHITE BLOOD COUNT 10.9 10^3/uL (4.0-10.0)
[2019-08-07 07:21] LABS: CALCIUM LEVEL 8.9 MG/DL (8.8-10.2); CREATININE FOR GFR 1.26 MG/DL (0.70-1.30); GLOMERULAR FILTRATION RATE 58.5 (>35); POTASSIUM SERUM 3.9 MEQ/L (3.5-5.1)
[2019-08-07] MEDS: TIOTROPIUM INHALER/CAPSULE (SPIRIVA) INH SCH (07:46)
[2019-08-07] MEDS: DABIGATRAN ETEXILATE 75 MG CAP (PRADAXA) PO SCH ×2 (09:13→20:26)
[2019-08-07] MEDS: allopurinoL 100 MG TAB PO SCH ×2 (09:14→20:25)
[2019-08-07] MEDS: PREGABALIN 75 MG CAP(LYRICA) PO SCH ×3 (09:14→20:25)
[2019-08-07] MEDS: ASPIRIN 81 MG ENTERIC TAB PO SCH (09:14)
[2019-08-07] MEDS: DOCUSATE SODIUM 100 MG CAP PO SCH ×2 (09:14→20:27)
[2019-08-07] MEDS: **hydrALAZINE** 10 MG TAB PO SCH ×3 (09:14→20:27)
[2019-08-07] MEDS: PANTOPRAZOLE 40MG TAB (PROTONIX) PO SCH (09:14)
[2019-08-07] MEDS: hydroCHLOROthiazide 25 MG TAB PO SCH (09:14)
[2019-08-07] MEDS: METOPROLOL TART 50 MG TAB PO SCH ×2 (09:14→20:26)
[2019-08-07] MEDS: lisinopriL 10 MG TAB PO SCH ×2 (09:14→20:25)
[2019-08-07] MEDS: LACTOBACILLUS ACIDOPHILUS CAP (BACID) PO SCH ×3 (09:15→20:26)
[2019-08-07] MEDS: GLIMEPIRIDE 2 MG TAB PO SCH ×2 (09:15→16:09)
[2019-08-07] MEDS: POTASSIUM CHLORIDE 10 MEQ SR TABLET PO SCH ×2 (09:15→20:26)
[2019-08-07] MEDS: HumaLOG INSULIN (NovoLOG) PER UNIT SC SCH ×4 (09:15→19:55)
[2019-08-07] MEDS: amLODIPine 5 MG TAB PO SCH ×2 (09:15→20:26)
[2019-08-07] MEDS: MAGNESIUM OXIDE 400 MG TAB (MAG-OX) PO SCH ×2 (09:16→20:25)
[2019-08-07] MEDS: NYSTATIN 100,000 UNITS/GM TOPICAL PWD 15 GM TOP SCH ×2 (09:16→20:27)
[2019-08-07] MEDS: FUROSEMIDE 40 MG TAB PO SCH (09:16)
[2019-08-07 14:00] VITALS: BP 110/53
--- NOTE | 2019-08-07 16:17 | IPNPDOC ---
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 REVIEW OF SYSTEMS: The following is a completed review of systems and has been reviewed. Review of systems otherwise unremarkable. PAIN: Patient self reports no pain EYES: +left sided visual field deficits EARS, NOSE, & THROAT: No throat pain, or dysphagia, or rhinorrhea CARDIOVASCULAR: Denies chest pain or palpitations PULMONARY: Denies shortness of breath GASTROINTESTINAL: Denies constipation/diarrhea GENITOURINARY: denies dysuria MUSCULOSKELETAL: no joint pain or swelling NEUROLOGICAL:+stroke HEMATOLOGICAL: denies easy bruising SKIN: denies rash PSYCHIATRIC: Unremarkable All other review of systems found to be negative. PHYSICAL EXAMINATION: VITAL SIGNS: Please see below. GENERAL: Pleasant and cooperative. No acute distress. HEENT: PERRL. Extraocular movements intact. Clear conjunctiva, no facial droop CARDIOVASCULAR: Regular rate and rhythm. No murmurs, rubs, or gallops LUNGS: Clear to auscultation bilaterally. No wheezes. No rhonchi ABDOMEN: Soft, nontender, nondistended. Positive bowel sounds. Normal active bowel sounds NEUROLOGICAL: Alert and oriented times three. Cranial nerves II through XII grossly intact. Sensation grossly intact in all 4 extremities +visual field cut on left EXTREMITIES: 5\5 strength bilateral upper extremities. 5\5 strength right lower extremity. 5/5 strength in left lower extremity. 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 Neuro: hx of AFib, likely embolic right METAL MINER territory infarct, started back on Pradaxa, also on ASA, monitor for clinical changes concerning for hemorrhagic conversion while on ARU-clinically stable -maintain good BP control, statin/fenofibrate therapy, patient on SSRI already for motor recovery in stroke -will need outpatient neuro f/u 3. Cardiac: hx Afib c/u metoprolol and Pradaxa, medicine consulted to assist in management -recent ECHO + for CHF with recent CXRs concerning for interstitial edema s/p IV lasix, c/u on oral lasix and HCTZ, daily weights, fluid restrict to 1800cc -HTN c/u amlodipine, lisinopril, hydralazine, +PM -Aortic US showed, Mild aneurysmal dilatation distal abdominal aorta 3.8 x 4.2 cm to be followed by his PMD -will refer to cardiology 4. Resp: hx ANSON c/u CPAP, monitor for infection -will refer to pulmonology 5. Endo: pmh DM c/u Amaryl, Levemir, and ISS 6. Renal: monitor for HAYDEN in setting of CKD 7.: s/p 7 day course of Cipro, c/u Bacid 8. DVT ppx: on Pradaxa, teds 9. GI ppx: protonix 10. Pain: Tylenol prn and Lyrica 11. Psych: depression c/u Zoloft 11. Dispo: 08-11-19 to home, progressing towards goals Allergies Coded Allergies: Sulfa (Sulfonamide Antibiotics) (Verified Allergy, Unknown, 07/22/19) PATIENT DOES NOT BELIEVE HE IS ALLERGIC TO THIS MEDICATION. Vital Signs Vital Signs Date Time Temp Pulse Resp B/P (MAP) Pulse Ox O2 Delivery O2 Flow Rate FiO2 08/07/19 14:00 98.9 77 18 110/53 (72) 96 Room Air Laboratory Data CBC/BMP Laboratory Tests 08/07/19 06:24 Labs 24H Laboratory Tests 2 08/06/19 16:41: Bedside Glucose (Misc Panel) 180H 08/06/19 21:15: Bedside Glucose (Misc Panel) 237H 08/07/19 06:24: Immature Granulocyte % (Auto) 0.6, Neutrophils (%) (Auto) 72.3H, Lymphocytes (%) (Auto) 16.5L, Monocytes (%) (Auto) 7.9H, Eosinophils (%) (Auto) 2.0, Basophils (%) (Auto) 0.7, Neutrophils # (Auto) 7.9, Lymphocytes # (Auto) 1.8, Monocytes # (Auto) 0.9H, Eosinophils # (Auto) 0.2, Basophils # (Auto) 0.1, Nucleated Red Blood Cells % (auto) 0.0, Anion Gap 7L, Glomerular Filtration Rate 58.5, Calcium Level 8.9 08/07/19 06:29: Bedside Glucose (Misc Panel) 116H 08/07/19 11:21: Bedside Glucose (Misc Panel) 140H Current Medications Current Medications Current Medications Medications (Trade) Dose Ordered Sig/Chaitanya Route PRN Reason Start Time Stop Time Status Last Admin Dose Admin Acetaminophen (Tylenol Tab) 650 mg Q4HP PRN PO MILD PAIN (PS 1-4) 07/30/19 14:15 Allopurinol (Zyloprim) 100 mg BID PO 07/30/19 21:00 08/07/19 09:14 Allopurinol (Zyloprim) 100 mg DAILY PO 07/31/19 09:00 07/30/19 15:53 DC Amlodipine Besylate (Norvasc) 5 mg BID PO 07/30/19 21:00 08/07/19 09:15 Aspirin (Ecotrin) 81 mg DAILY PO 07/31/19 09:00 08/07/19 09:14 Atorvastatin Calcium (Lipitor) 20 mg QHS PO 07/30/19 21:00 08/06/19 21:17 Ciprofloxacin (Cipro) 250 mg BID@06,18 PO 07/30/19 18:00 08/02/19 18:01 DC 08/02/19 17:50 Dabigatran (Pradaxa) 150 mg BID PO 07/30/19 21:00 08/07/19 09:13 Dextrose (Dextrose 50%) 25 ml ASDIRECTED PRN IV SEE LABEL COMMENTS 07/30/19 14:15 Docusate Sodium (Colace) 100 mg BID PO 07/30/19 21:00 08/07/19 09:14 Fenofibrate (Tricor) 145 mg QHS PO 07/30/19 21:00 08/06/19 21:16 Furosemide (Lasix) 40 mg DAILY PO 07/31/19 09:00 08/07/19 09:16 Glimepiride (Amaryl) 4 mg BID@0730,1730 PO 07/30/19 17:30 08/07/19 09:15 Glucagon (Glucagon) 1 mg ASDIRECTED PRN SC SEE LABEL COMMENTS 07/30/19 14:15 Glucose (Glucose) 16 GM ASDIRECTED PRN PO SEE LABEL COMMENTS 07/30/19 14:15 Hydralazine HCl (Apresoline) 20 mg TID PO 07/30/19 16:00 08/07/19 09:14 Hydrochlorothiazide (Hydrodiuril) 25 mg DAILY PO 07/31/19 09:00 08/07/19 09:14 Insulin Detemir (Levemir Insulin) 30 units QHS [place] 08/06/19 21:00 08/06/19 21:20 Insulin Detemir (Levemir Insulin) 30 units QHS [place] 07/30/19 21:00 07/31/19 12:27 DC 07/30/19 21:41 Insulin Detemir (Levemir Insulin) 34 units QHS [place] 07/31/19 21:00 08/06/19 15:34 DC 08/05/19 21:41 Insulin Human Lispro (HumaLOG INSULIN) SEE PROTOCOL TABLE AC [place] 07/30/19 17:30 08/07/19 12:21 Insulin Human Lispro (HumaLOG INSULIN) [facility]OCOL [facility] 07/30/19 21:00 08/01/19 22:02 Lactobacillus Acidophilus (Bacid) 1 ea TID PO 07/30/19 16:00 08/07/19 09:15 Lisinopril (Prinivil) 10 mg BID PO 07/30/19 21:00 08/07/19 09:14 Magnesium Hydroxide (Milk Of Magnesia) 30 ml DAILYPRN PRN PO CONSTIPATION 07/30/19 14:15 Magnesium Oxide (Mag-Ox) 400 mg BID PO 07/30/19 21:00 08/07/19 09:16 Metoprolol Tartrate (Lopressor) 50 mg BID PO 07/30/19 21:00 08/07/19 09:14 Nystatin (Mycostatin Powder, Nystop) groin and abdominal folds BID TOP 07/30/19 21:00 08/07/19 09:16 Ondansetron HCl (Zofran) 4 mg Q6HP PRN PO NAUSEA 07/30/19 14:15 Pantoprazole Sodium (Protonix) 40 mg DAILY PO 07/30/19 09:00 08/07/19 09:14 Potassium Chloride (Micro-K Extencaps) 30 meq BID PO 07/30/19 21:00 08/07/19 09:15 Pregabalin (Lyrica) 75 mg TID PO 07/30/19 16:00 08/07/19 09:14 Senna (Senokot) 1 tab QHS PO 07/30/19 21:00 08/06/19 21:17 Sertraline HCl (Zoloft) 50 mg QHS PO 07/30/19 21:00 08/06/19 21:17 Tiotropium [place] (Spiriva Handihaler) 1 inhalation DAILY@08 INH 07/31/19 08:00 08/07/19 07:46 Vitamin D (Vitamin D) 1,000 units DAILY PO 07/31/19 09:00 07/30/19 15:53 DC Vitamin D (Vitamin D) 1,000 units QHS PO 07/30/19 21:00 08/06/19 21:17 KRISTEN DOBBS MD Aug 07, 2019 16:17
[2019-08-07 20:00] VITALS: BP 158/80
[2019-08-07] MEDS: ATORVASTATIN 20 MG TAB PO SCH (20:25)
[2019-08-07] MEDS: VITAMIN D 1,000 INTERNATIONAL UNITS TABLET PO SCH (20:25)
[2019-08-07] MEDS: FENOFIBRATE 145 MG TAB (TRICOR) PO SCH (20:26)
[2019-08-07] MEDS: SERTRALINE HCL 50 MG TAB PO SCH (20:26)
[2019-08-07] MEDS: LEVEMIR (INSULIN DETEMIR) 1 UNITS/0.01ML SC SCH (20:27)
[2019-08-07] MEDS: SENNA 8.6 MG TAB (SENOKOT) PO SCH (20:27)
[2019-08-08 06:00] VITALS: BP 145/76
[2019-08-08] MEDS: DOCUSATE SODIUM 100 MG CAP PO SCH ×2 (08:00→21:17)
[2019-08-08] MEDS: NYSTATIN 100,000 UNITS/GM TOPICAL PWD 15 GM TOP SCH ×2 (08:01→21:16)
[2019-08-08] MEDS: PREGABALIN 75 MG CAP(LYRICA) PO SCH ×3 (08:12→21:16)
[2019-08-08] MEDS: MAGNESIUM OXIDE 400 MG TAB (MAG-OX) PO SCH ×2 (08:12→21:18)
[2019-08-08] MEDS: DABIGATRAN ETEXILATE 75 MG CAP (PRADAXA) PO SCH ×2 (08:12→21:19)
[2019-08-08] MEDS: HumaLOG INSULIN (NovoLOG) PER UNIT SC SCH ×4 (08:12→20:40)
[2019-08-08] MEDS: ASPIRIN 81 MG ENTERIC TAB PO SCH (08:13)
[2019-08-08] MEDS: FUROSEMIDE 40 MG TAB PO SCH (08:13)
[2019-08-08] MEDS: PANTOPRAZOLE 40MG TAB (PROTONIX) PO SCH (08:13)
[2019-08-08] MEDS: LACTOBACILLUS ACIDOPHILUS CAP (BACID) PO SCH ×3 (08:13→21:18)
[2019-08-08] MEDS: GLIMEPIRIDE 2 MG TAB PO SCH ×2 (08:13→17:20)
[2019-08-08] MEDS: POTASSIUM CHLORIDE 10 MEQ SR TABLET PO SCH ×2 (08:13→21:17)
[2019-08-08] MEDS: **hydrALAZINE** 10 MG TAB PO SCH ×3 (08:14→21:18)
[2019-08-08] MEDS: METOPROLOL TART 50 MG TAB PO SCH ×2 (08:14→21:18)
[2019-08-08] MEDS: allopurinoL 100 MG TAB PO SCH ×2 (08:14→21:16)
[2019-08-08] MEDS: lisinopriL 10 MG TAB PO SCH ×2 (08:14→21:17)
[2019-08-08] MEDS: hydroCHLOROthiazide 25 MG TAB PO SCH (08:15)
[2019-08-08] MEDS: amLODIPine 5 MG TAB PO SCH ×2 (08:15→21:17)
[2019-08-08] MEDS: TIOTROPIUM INHALER/CAPSULE (SPIRIVA) INH SCH (08:30)
[2019-08-08 14:00] VITALS: BP 127/70
[2019-08-08 20:15] VITALS: BP 121/72
[2019-08-08] MEDS: SENNA 8.6 MG TAB (SENOKOT) PO SCH (21:16)
[2019-08-08] MEDS: LEVEMIR (INSULIN DETEMIR) 1 UNITS/0.01ML SC SCH (21:16)
[2019-08-08] MEDS: ATORVASTATIN 20 MG TAB PO SCH (21:16)
[2019-08-08] MEDS: FENOFIBRATE 145 MG TAB (TRICOR) PO SCH (21:18)
[2019-08-08] MEDS: SERTRALINE HCL 50 MG TAB PO SCH (21:18)
[2019-08-08] MEDS: VITAMIN D 1,000 INTERNATIONAL UNITS TABLET PO SCH (21:18)
[2019-08-09 05:59] VITALS: BP 158/83
[2019-08-09] MEDS: HumaLOG INSULIN (NovoLOG) PER UNIT SC SCH ×4 (07:30→21:00)
[2019-08-09] MEDS: TIOTROPIUM INHALER/CAPSULE (SPIRIVA) INH SCH (07:54)
[2019-08-09] MEDS: DOCUSATE SODIUM 100 MG CAP PO SCH ×2 (09:00→21:00)
[2019-08-09] MEDS: NYSTATIN 100,000 UNITS/GM TOPICAL PWD 15 GM TOP SCH ×3 (09:00→21:17)
[2019-08-09] MEDS: GLIMEPIRIDE 2 MG TAB PO SCH ×2 (09:03→17:55)
[2019-08-09] MEDS: DABIGATRAN ETEXILATE 75 MG CAP (PRADAXA) PO SCH ×2 (09:03→21:13)
[2019-08-09] MEDS: LACTOBACILLUS ACIDOPHILUS CAP (BACID) PO SCH ×3 (09:03→21:13)
[2019-08-09] MEDS: PANTOPRAZOLE 40MG TAB (PROTONIX) PO SCH (09:03)
[2019-08-09] MEDS: allopurinoL 100 MG TAB PO SCH ×2 (09:04→21:14)
[2019-08-09] MEDS: MAGNESIUM OXIDE 400 MG TAB (MAG-OX) PO SCH ×2 (09:04→21:14)
[2019-08-09] MEDS: ASPIRIN 81 MG ENTERIC TAB PO SCH (09:04)
[2019-08-09] MEDS: FUROSEMIDE 40 MG TAB PO SCH (09:04)
[2019-08-09] MEDS: PREGABALIN 75 MG CAP(LYRICA) PO SCH ×3 (09:04→21:15)
[2019-08-09] MEDS: hydroCHLOROthiazide 25 MG TAB PO SCH (09:05)
[2019-08-09] MEDS: lisinopriL 10 MG TAB PO SCH ×2 (09:05→21:15)
[2019-08-09] MEDS: **hydrALAZINE** 10 MG TAB PO SCH ×3 (09:05→21:16)
[2019-08-09] MEDS: METOPROLOL TART 50 MG TAB PO SCH ×2 (09:05→21:15)
[2019-08-09] MEDS: amLODIPine 5 MG TAB PO SCH ×2 (09:06→21:15)
[2019-08-09] MEDS: POTASSIUM CHLORIDE 10 MEQ SR TABLET PO SCH ×2 (09:06→21:13)
[2019-08-09 14:00] VITALS: BP 118/82
[2019-08-09 20:00] VITALS: BP 131/64
[2019-08-09] MEDS: SENNA 8.6 MG TAB (SENOKOT) PO SCH (21:00)
[2019-08-09] MEDS: ATORVASTATIN 20 MG TAB PO SCH (21:14)
[2019-08-09] MEDS: SERTRALINE HCL 50 MG TAB PO SCH (21:14)
[2019-08-09] MEDS: VITAMIN D 1,000 INTERNATIONAL UNITS TABLET PO SCH (21:15)
[2019-08-09] MEDS: FENOFIBRATE 145 MG TAB (TRICOR) PO SCH (21:15)
[2019-08-09] MEDS: LEVEMIR (INSULIN DETEMIR) 1 UNITS/0.01ML SC SCH (21:17)
[2019-08-10 06:00] VITALS: BP 132/67
[2019-08-10] MEDS: METOPROLOL TART 50 MG TAB PO SCH ×2 (08:35→20:03)
[2019-08-10] MEDS: DABIGATRAN ETEXILATE 75 MG CAP (PRADAXA) PO SCH ×2 (08:35→20:01)
[2019-08-10] MEDS: GLIMEPIRIDE 2 MG TAB PO SCH ×2 (08:35→17:01)
[2019-08-10] MEDS: **hydrALAZINE** 10 MG TAB PO SCH ×3 (08:35→20:04)
[2019-08-10] MEDS: LACTOBACILLUS ACIDOPHILUS CAP (BACID) PO SCH ×3 (08:36→20:01)
[2019-08-10] MEDS: ASPIRIN 81 MG ENTERIC TAB PO SCH (08:36)
[2019-08-10] MEDS: PANTOPRAZOLE 40MG TAB (PROTONIX) PO SCH (08:36)
[2019-08-10] MEDS: DOCUSATE SODIUM 100 MG CAP PO SCH ×2 (08:36→20:02)
[2019-08-10] MEDS: hydroCHLOROthiazide 25 MG TAB PO SCH (08:36)
[2019-08-10] MEDS: FUROSEMIDE 40 MG TAB PO SCH (08:36)
[2019-08-10] MEDS: PREGABALIN 75 MG CAP(LYRICA) PO SCH ×3 (08:36→20:02)
[2019-08-10] MEDS: MAGNESIUM OXIDE 400 MG TAB (MAG-OX) PO SCH ×2 (08:36→20:04)
[2019-08-10] MEDS: allopurinoL 100 MG TAB PO SCH ×2 (08:37→20:03)
[2019-08-10] MEDS: lisinopriL 10 MG TAB PO SCH ×2 (08:37→20:03)
[2019-08-10] MEDS: POTASSIUM CHLORIDE 10 MEQ SR TABLET PO SCH ×2 (08:37→20:03)
[2019-08-10] MEDS: amLODIPine 5 MG TAB PO SCH ×2 (08:37→20:01)
[2019-08-10] MEDS: NYSTATIN 100,000 UNITS/GM TOPICAL PWD 15 GM TOP SCH ×2 (08:39→20:04)
[2019-08-10] MEDS: HumaLOG INSULIN (NovoLOG) PER UNIT SC SCH ×4 (08:39→20:12)
[2019-08-10] MEDS: TIOTROPIUM INHALER/CAPSULE (SPIRIVA) INH SCH (09:00)
[2019-08-10 09:11] LABS: BASO # 0.1 10^3/uL (0.0-0.2); BASO % 0.5 % (0.0-1.0); EOS # 0.2 10^3/uL (0.0-0.5); EOS % 2.2 % (0.0-3.0); HEMATOCRIT 39.4 % (42.0-52.0); HEMOGLOBIN 12.6 g/dl (13.5-17.5); LYMPH # 1.8 10^3/uL (1.5-5.0); LYMPH % 18.4 % (24.0-44.0); MONO # 0.8 10^3/uL (0.0-0.8); MONO % 7.8 % (0.0-5.0); NEUTROPHILS # 6.9 10^3/uL (1.5-8.5); NEUTROPHILS % 70.8 % (36.0-66.0); PLATELET COUNT, AUTOMATED 227 10^3/uL (150-450); RED BLOOD COUNT 4.06 10^6/uL (4.30-6.10); WHITE BLOOD COUNT 9.7 10^3/uL (4.0-10.0)
[2019-08-10 09:31] LABS: CREATININE FOR GFR 1.33 MG/DL (0.70-1.30); GLOMERULAR FILTRATION RATE 54.9 (>35); POTASSIUM SERUM 3.8 MEQ/L (3.5-5.1)
[2019-08-10] MEDS ORDERED: LANTINJ4 SQ (10:02)
--- NOTE | 2019-08-10 12:58 | IPNPDOC ---
PM&R Progress Note DATE OF SERVICE: Aug 10, 2019 Lab Rep Progress Note Subjective: Patient reporting he is in good spirits and looking forward to going home tomorrow. REVIEW OF SYSTEMS: The following is a completed review of systems and has been reviewed. Review of systems otherwise unremarkable. PAIN: Patient self reports no pain EYES: +left sided visual field deficits EARS, NOSE, & THROAT: No throat pain, or dysphagia, or rhinorrhea CARDIOVASCULAR: Denies chest pain or palpitations PULMONARY: Denies shortness of breath GASTROINTESTINAL: Denies constipation/diarrhea GENITOURINARY: denies dysuria MUSCULOSKELETAL: no joint pain or swelling NEUROLOGICAL:+stroke HEMATOLOGICAL: denies easy bruising SKIN: denies rash PSYCHIATRIC: Unremarkable All other review of systems found to be negative. PHYSICAL EXAMINATION: VITAL SIGNS: Please see below. GENERAL: Pleasant and cooperative. No acute distress. HEENT: PERRL. Extraocular movements intact. Clear conjunctiva, no facial droop CARDIOVASCULAR: Regular rate and rhythm. No murmurs, rubs, or gallops LUNGS: Clear to auscultation bilaterally. No wheezes. No rhonchi ABDOMEN: Soft, nontender, nondistended. Positive bowel sounds. Normal active bowel sounds NEUROLOGICAL: Alert and oriented times three. Cranial nerves II through XII grossly intact. Sensation grossly intact in all 4 extremities +visual field cut on left EXTREMITIES: 5\5 strength bilateral upper extremities. 5\5 strength right lower extremity. 5/5 strength in left lower extremity. 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 Resp: hx ANSON c/u CPAP, monitor for infection - referred to pulmonology 5. Endo: pmh DM c/u Amaryl, Levemir, and ISS 6. Renal: monitor for HAYDEN in setting of CKD 7.: s/p 7 day course of Cipro, c/u Bacid, voiding well 8. DVT ppx: on Pradaxa, teds 9. GI ppx: protonix 10. Pain: Tylenol prn and Lyrica 11. Psych: depression c/u Zoloft 11. Dispo: 08-11-19 to home, progressing towards goals Allergies Coded Allergies: Sulfa (Sulfonamide Antibiotics) (Verified Allergy, Unknown, 07/22/19) PATIENT DOES NOT BELIEVE HE IS ALLERGIC TO THIS MEDICATION. Vital Signs Vital Signs Date Time Temp Pulse Resp B/P (MAP) Pulse Ox O2 Delivery O2 Flow Rate FiO2 08/10/19 08:37 132/67 08/10/19 08:37 62 08/10/19 06:00 98.0 18 97 NIPPV (BIPAP/CPAP) Laboratory Data CBC/BMP Laboratory Tests 08/10/19 08:50 Labs 24H Laboratory Tests 2 08/09/19 16:26: Bedside Glucose (Misc Panel) 217H 08/09/19 19:44: Bedside Glucose (Misc Panel) 183H 08/10/19 06:55: Bedside Glucose (Misc Panel) 208H 08/10/19 08:50: Immature Granulocyte % (Auto) 0.3, Neutrophils (%) (Auto) 70.8H, Lymphocytes (%) (Auto) 18.4L, Monocytes (%) (Auto) 7.8H, Eosinophils (%) (Auto) 2.2, Basophils (%) (Auto) 0.5, Neutrophils # (Auto) 6.9, Lymphocytes # (Auto) 1.8, Monocytes # (Auto) 0.8, Eosinophils # (Auto) 0.2, Basophils # (Auto) 0.1, Nucleated Red Bloo d Cells % (auto) 0.0, Anion Gap 9, Glomerular Filtration Rate 54.9, Calcium Level 9.0 08/10/19 11:53: Bedside Glucose (Misc Panel) 165H Current Medications Current Medications Current Medications Medications (Trade) Dose Ordered Sig/Chaitanya Route PRN Reason Start Time Stop Time Status Last Admin Dose Admin Acetaminophen (Tylenol Tab) 650 mg Q4HP PRN PO MILD PAIN (PS 1-4) 07/30/19 14:15 Allopurinol (Zyloprim) 100 mg BID PO 07/30/19 21:00 08/10/19 08:37 Allopurinol (Zyloprim) 100 mg DAILY PO 07/31/19 09:00 07/30/19 15:53 DC Amlodipine Besylate (Norvasc) 5 mg BID PO 07/30/19 21:00 08/10/19 08:37 Aspirin (Ecotrin) 81 mg DAILY PO 07/31/19 09:00 08/10/19 08:36 Atorvastatin Calcium (Lipitor) 20 mg QHS PO 07/30/19 21:00 08/09/19 21:14 Ciprofloxacin (Cipro) 250 mg BID@06,18 PO 07/30/19 18:00 08/02/19 18:01 DC 08/02/19 17:50 Dabigatran (Pradaxa) 150 mg BID PO 07/30/19 21:00 08/10/19 08:35 Dextrose (Dextrose 50%) 25 ml ASDIRECTED PRN IV SEE LABEL COMMENTS 07/30/19 14:15 Docusate Sodium (Colace) 100 mg BID PO 07/30/19 21:00 08/10/19 08:36 Fenofibrate (Tricor) 145 mg QHS PO 07/30/19 21:00 08/09/19 21:15 Furosemide (Lasix) 40 mg DAILY PO 07/31/19 09:00 08/10/19 08:36 Glimepiride (Amaryl) 4 mg BID@0730,1730 PO 07/30/19 17:30 08/10/19 08:35 Glucagon (Glucagon) 1 mg ASDIRECTED PRN SC SEE LABEL COMMENTS 07/30/19 14:15 Glucose (Glucose) 16 GM ASDIRECTED PRN PO SEE LABEL COMMENTS 07/30/19 14:15 Hydralazine HCl (Apresoline) 20 mg TID PO 07/30/19 16:00 08/10/19 08:35 Hydrochlorothiazide (Hydrodiuril) 25 mg DAILY PO 07/31/19 09:00 08/10/19 08:36 Insulin Detemir (Levemir Insulin) 30 units QHS SC 08/06/19 21:00 08/09/19 21:17 Insulin Detemir (Levemir Insulin) 30 units QHS SC 07/30/19 21:00 07/31/19 12:27 DC 07/30/19 21:41 Insulin Detemir (Levemir Insulin) 34 units QHS SC 07/31/19 21:00 08/06/19 15:34 DC 08/05/19 21:41 Insulin Human Lispro (HumaLOG INSULIN) SEE PROTOCOL TABLE AC AK 07/30/19 17:30 08/10/19 12:34 Insulin Human Lispro (HumaLOG INSULIN) [facility]OC[facility] 07/30/19 21:00 08/01/19 22:02 Lactobacillus Acidophilus (Bacid) 1 ea TID PO 07/30/19 16:00 08/10/19 08:36 Lisinopril (Prinivil) 10 mg BID PO 07/30/19 21:00 08/10/19 08:37 Magnesium Hydroxide (Milk Of Magnesia) 30 ml DAILYPRN PRN PO CONSTIPATION 07/30/19 14:15 Magnesium Oxide (Mag-Ox) 400 mg BID PO 07/30/19 21:00 08/10/19 08:36 Metoprolol Tartrate (Lopressor) 50 mg BID PO 07/30/19 21:00 08/10/19 08:35 Nystatin (Mycostatin Powder, Nystop) groin and abdominal folds BID TOP 07/30/19 21:00 08/10/19 08:39 Ondansetron HCl (Zofran) 4 mg Q6HP PRN PO NAUSEA 07/30/19 14:15 Pantoprazole Sodium (Protonix) 40 mg DAILY PO 07/30/19 09:00 08/10/19 08:36 Potassium Chloride (Micro-K Extencaps) 30 meq BID PO 07/30/19 21:00 08/10/19 08:37 Pregabalin (Lyrica) 75 mg TID PO 07/30/19 16:00 08/10/19 08:36 Senna (Senokot) 1 tab QHS PO 07/30/19 21:00 08/08/19 21:16 Sertraline HCl (Zoloft) 50 mg QHS PO 07/30/19 21:00 08/09/19 21:14 Tiotropium [place] (Spiriva Handihaler) 1 inhalation DAILY@08 INH 07/31/19 08:00 08/10/19 09:00 Vitamin D (Vitamin D) 1,000 units DAILY PO 07/31/19 09:00 07/30/19 15:53 DC Vitamin D (Vitamin D) 1,000 units QHS PO 07/30/19 21:00 08/09/19 21:15 KRISTEN DOBBS MD Aug 10, 2019 12:58
[2019-08-10 14:00] VITALS: BP 123/70
[2019-08-10 20:00] VITALS: BP 121/67
[2019-08-10] MEDS: VITAMIN D 1,000 INTERNATIONAL UNITS TABLET PO SCH (20:01)
[2019-08-10] MEDS: SENNA 8.6 MG TAB (SENOKOT) PO SCH (20:02)
[2019-08-10] MEDS: SERTRALINE HCL 50 MG TAB PO SCH (20:03)
[2019-08-10] MEDS: ATORVASTATIN 20 MG TAB PO SCH (20:03)
[2019-08-10] MEDS: FENOFIBRATE 145 MG TAB (TRICOR) PO SCH (20:03)
[2019-08-10] MEDS: LEVEMIR (INSULIN DETEMIR) 1 UNITS/0.01ML SC SCH (20:16)
[2019-08-11 06:00] VITALS: BP 140/86
[2019-08-11] MEDS: TIOTROPIUM INHALER/CAPSULE (SPIRIVA) INH SCH (07:36)
[2019-08-11] MEDS: PANTOPRAZOLE 40MG TAB (PROTONIX) PO SCH (09:07)
[2019-08-11] MEDS: DABIGATRAN ETEXILATE 75 MG CAP (PRADAXA) PO SCH (09:08)
[2019-08-11] MEDS: POTASSIUM CHLORIDE 10 MEQ SR TABLET PO SCH (09:08)
[2019-08-11] MEDS: ASPIRIN 81 MG ENTERIC TAB PO SCH (09:08)
[2019-08-11] MEDS: allopurinoL 100 MG TAB PO SCH (09:08)
[2019-08-11] MEDS: LACTOBACILLUS ACIDOPHILUS CAP (BACID) PO SCH (09:08)
[2019-08-11] MEDS: PREGABALIN 75 MG CAP(LYRICA) PO SCH (09:08)
[2019-08-11] MEDS: amLODIPine 5 MG TAB PO SCH (09:08)
[2019-08-11] MEDS: DOCUSATE SODIUM 100 MG CAP PO SCH (09:08)
[2019-08-11] MEDS: hydroCHLOROthiazide 25 MG TAB PO SCH (09:08)
[2019-08-11 09:09] VITALS: BP 140/86
[2019-08-11] MEDS: GLIMEPIRIDE 2 MG TAB PO SCH (09:09)
[2019-08-11] MEDS: METOPROLOL TART 50 MG TAB PO SCH (09:09)
[2019-08-11] MEDS: **hydrALAZINE** 10 MG TAB PO SCH (09:09)
[2019-08-11] MEDS: lisinopriL 10 MG TAB PO SCH (09:09)
[2019-08-11] MEDS: MAGNESIUM OXIDE 400 MG TAB (MAG-OX) PO SCH (09:09)
[2019-08-11] MEDS: HumaLOG INSULIN (NovoLOG) PER UNIT SC SCH (09:10)
[2019-08-11] MEDS: FUROSEMIDE 40 MG TAB PO SCH (09:11)
[2019-08-11] MEDS: NYSTATIN 100,000 UNITS/GM TOPICAL PWD 15 GM TOP SCH (09:12)
[2019-08-11] MEDS ORDERED: HYDR10TAB PO (11:44)
[2019-08-11] MEDS ORDERED: AMLO5TAB6 PO (11:44)
[2019-08-11] MEDS ORDERED: HYDR25TAB PO (11:44)
[2019-08-11] MEDS ORDERED: ATOR1TAB21 PO (11:44)
--- NOTE | 2019-08-11 12:31 | PMRDS ---
DATE OF ADMISSION: 07/30/2019 DATE OF DISCHARGE: 08/11/2019 CHIEF COMPLAINT/DISCHARGE DIAGNOSIS: Stroke. HISTORY OF PRESENT ILLNESS: This is an 79-year-old male with a past medical history of atrial fibrillation on Pradaxa, diabetes with peripheral polyneuropathy, pacemaker, obstructive sleep apnea (ANSON) on CPAP who held his Pradaxa in anticipation of back surgery when he developed a headache with difficulty speaking. He presented to [facility] emergency department (ED) on 07/22/[address] showed "loss of shankar-white differentiation in the right [employer] territory involving the medial right temporal lobe and occipital lobe, evidence of acute infarct". He was evaluated by neurology who deemed his stroke was likely embolic in nature with a lab permissive hypertension, then restarted on Pradaxa after a few days while taking aspirin. Followup CT is negative for hemorrhagic transformation or significant mass effect. He developed leukocytosis with a urine culture positive for Enterobacter and started on ciprofloxacin. He was evaluated by therapy, noted to be below his baseline mobility in activities of daily living (ADLs) and deemed medically appropriate for discharge to acute rehabilitation unit (ARU) on 07/30/2019. PAST MEDICAL HISTORY: As per HPI. HOSPITAL COURSE: The patient was admitted and enrolled in a comprehensive physical therapy (PT), occupational therapy (OT), speech language pathology program. The patient had 24-hour nursing supervision and weekly team meetings were held to discuss his progress. The patient continued and finished up a course of Cipro in addition to taking Bacid, with no difficulty voiding. The patient had no neurological decline well on Pradaxa and aspirin. He had left-sided homonymous hemianopsia which gradually improved, however, did not resolve during his hospital course. He was maintained on fluid restriction and the setting of congestive heart failure (CHF) and maintained on diuretics. His blood sugars were well-controlled during his hospital stay as well and he was deemed medically and functionally stable to return home. Discharge medications as per instructions. FUNCTIONAL HISTORY ON DISCHARGE: The patient was modified independent for all functional transfers, able to ambulate 200 feet at a modified independent level and negotiate stairs at a contact guard assist level and in occupational therapy he was modified independent for grooming, toileting, upper and lower body dressing. Thank you for this referral.
== END 2019-08-11 12:33 | disposition home or self-care (01) | DRG 56 ==
LOC: M PM&R 14:45
PROVIDERS: ADMIT Physical Medicine & Rehabilitation; ATTEND Physical Medicine & Rehabilitation
DX: I69.354 Hemiplegia and hemiparesis following cerebral infarction affecting left non-dominant side (principal); I63.331 Cerebral infarction due to thrombosis of right posterior cerebral artery; I48.20 Chronic atrial fibrillation, unspecified; E11.42 Type 2 diabetes mellitus with diabetic polyneuropathy; M35.3 Polymyalgia rheumatica; G47.33 Obstructive sleep apnea (adult) (pediatric); Z96.642 Presence of left artificial hip joint; Z79.82 Long term (current) use of aspirin; Z79.4 Long term (current) use of insulin; Z88.2 Allergy status to sulfonamides; D72.829 Elevated white blood cell count, unspecified; B95.2 Enterococcus as the cause of diseases classified elsewhere; I50.9 Heart failure, unspecified; I11.0 Hypertensive heart disease with heart failure; F32.9 Major depressive disorder, single episode, unspecified; Z79.899 Other long term (current) drug therapy; Z95.0 Presence of cardiac pacemaker; I27.20 Pulmonary hypertension, unspecified; E78.5 Hyperlipidemia, unspecified; I71.4 Abdominal aortic aneurysm, without rupture; Z79.01 Long term (current) use of anticoagulants; R26.2 Difficulty in walking, not elsewhere classified; I69.398 Other sequelae of cerebral infarction; H53.462 Homonymous bilateral field defects, left side

== ENCOUNTER 2019-09-03 13:45 | Outpatient (RCR) | payer MEDICARE, BC ==
[~2019-09-03 13:45] MED LIST changes: +ACET-683 PO; +AMLO5TAB6 PO; +ATOR1TAB21 PO; -FENO145T13 PO; +FENO145T7 PO; -GLIM4TAB3 PO; +GLIM4TAB5 PO; +HYDR10TAB PO; +NYST10006 TOP
== END 2019-09-04 ==
LOC: M PT 13:45
PROVIDERS: ATTEND Family Medicine
DX: I69.398 Other sequelae of cerebral infarction (principal); R26.89 Other abnormalities of gait and mobility

== ENCOUNTER 2019-09-29 15:15 | Outpatient (RCR) | payer MEDICARE, BC | END 2019-10-03 | LOC: M PT 15:15 | PROVIDERS: ATTEND Family Medicine | DX: I63.9 Cerebral infarction, unspecified (principal) ==

== ENCOUNTER → 2019-09-29 | Outpatient (CLI) | payer MEDICARE, BC ==
--- NOTE | 2019-09-29 18:06 | REPVR ---
PROCEDURE INFORMATION: Exam: CT Head Without Contrast Exam date and time: 09/29/2019 5:27 PM Age: 79 years old Clinical indication: Pain; Additional info: Homonymous carlitos failed defects TECHNIQUE: Imaging protocol: Computed tomography of the head without contrast. Radiation optimization: All CT scans at this facility use at least one of these dose optimization techniques: automated exposure control; mA and/or kV adjustment per patient size (includes targeted exams where dose is matched to clinical indication); or iterative reconstruction. COMPARISON: CT Head without contrast 07/24/2019 10:26 AM FINDINGS: Brain: A chronic right occipital lobe infarct is present. Minimal increased density within the infarct may represent mineralization from laminar necrosis. Residual petechial hemorrhage is less likely. There is no mass-effect or midline shift. Chronic microvascular ischemic changes are seen in the periventricular white matter. Age-related cerebral and cerebellar volume loss is present. Ventricles: Mild ex vacuo dilation of the lateral ventricles is noted. Bones/joints: No acute fracture. Sinuses: There is no acute sinusitis. Mastoid air cells: The mastoid air cells are clear. Orbits: The included orbital structures are unremarkable. Soft tissues: Unremarkable. Vasculature: Atherosclerotic calcifications are seen involving the cavernous carotid arteries. IMPRESSION: A chronic right occipital lobe infarct is present. Minimal increased density within the infarct may represent mineralization from laminar necrosis. Residual petechial hemorrhage is less likely. Electronically signed by: George Infante On 09/29/2019 18:06:24 PM
== END ==
LOC: M RAD 17:12
PROVIDERS: ATTEND Psychiatry & Neurology Neurology
DX: H53.462 Homonymous bilateral field defects, left side (principal); I63.9 Cerebral infarction, unspecified

== ENCOUNTER 2019-10-15 15:15 | Outpatient (RCR) | payer MEDICARE, BC | END 2019-11-03 | LOC: M PT 15:15 | PROVIDERS: ATTEND Family Medicine | DX: I63.9 Cerebral infarction, unspecified (principal) ==

== ENCOUNTER → 2019-10-19 | Outpatient (CLI) | payer MEDICARE, BC ==
[2019-10-19 12:58] LABS: BASO # 0.1 10^3/uL (0.0-0.2); BASO % 0.7 % (0.0-1.0); EOS # 0.3 10^3/uL (0.0-0.5); EOS % 3.8 % (0.0-3.0); HEMATOCRIT 40.6 % (42.0-52.0); HEMOGLOBIN 13.6 g/dl (13.5-17.5); LYMPH # 1.9 10^3/uL (1.5-5.0); LYMPH % 22.4 % (24.0-44.0); MEAN CORPUSCULAR HEMOGLOBIN 32.1 pg (27.0-33.0); MEAN CORPUSCULAR HGB CONC 33.5 g/dl (32.0-36.5); MEAN CORPUSCULAR VOLUME 95.8 fl (80.0-96.0); MONO # 0.9 10^3/uL (0.0-0.8); MONO % 9.9 % (0.0-5.0); NEUTROPHILS # 5.4 10^3/uL (1.5-8.5); NEUTROPHILS % 62.6 % (36.0-66.0); PLATELET COUNT, AUTOMATED 153 10^3/uL (150-450); RED BLOOD COUNT 4.24 10^6/uL (4.30-6.10); WHITE BLOOD COUNT 8.7 10^3/uL (4.0-10.0)
[2019-10-19 13:29] LABS: BLOOD UREA NITROGEN 22 MG/DL (7-18); CALCIUM LEVEL 9.1 MG/DL (8.8-10.2); CARBON DIOXIDE LEVEL 27 MEQ/L (21-32); CHLORIDE LEVEL 106 MEQ/L (98-107); CREATININE FOR GFR 1.09 MG/DL (0.70-1.30); GLOMERULAR FILTRATION RATE > 60.0 (>35); GLUCOSE, FASTING 201 MG/DL (70-100); SODIUM LEVEL 142 MEQ/L (136-145)
== END ==
LOC: M WUC 11:02
PROVIDERS: ATTEND Family Medicine
DX: Z95.0 Presence of cardiac pacemaker (principal); E11.9 Type 2 diabetes mellitus without complications; I50.30 Unspecified diastolic (congestive) heart failure; M10.9 Gout, unspecified; I69.30 Unspecified sequelae of cerebral infarction; E88.81 Metabolic syndrome and other insulin resistance

== ENCOUNTER → 2020-04-05 | Outpatient (CLI) | payer MEDICARE, BC ==
[~2020-04-05] MED LIST changes: +AMLO1TAB24 PO; -AMLO5TAB6 PO
[2020-04-05 17:00] LABS: BLOOD UREA NITROGEN 17 MG/DL (7-18); CALCIUM LEVEL 8.8 MG/DL (8.8-10.2); CARBON DIOXIDE LEVEL 29 MEQ/L (21-32); CHLORIDE LEVEL 103 MEQ/L (98-107); CREATININE FOR GFR 1.14 MG/DL (0.70-1.30); GLOMERULAR FILTRATION RATE > 60.0 (>35); GLUCOSE, FASTING 199 MG/DL (70-100); NT-PRO BNP 389 PG/ML (<450); POTASSIUM SERUM 3.9 MEQ/L (3.5-5.1); SODIUM LEVEL 140 MEQ/L (136-145)
== END ==
LOC: M WUC 11:35
PROVIDERS: ATTEND Family Medicine
DX: E11.9 Type 2 diabetes mellitus without complications (principal); I50.30 Unspecified diastolic (congestive) heart failure

== ENCOUNTER → 2020-04-05 | Outpatient (CLI) | payer MEDICARE, BC ==
[2020-04-05 17:07] LABS: FREE T4 1.09 NG/DL (0.76-1.46); VITAMIN B12 LEVEL 389 PG/ML
[2020-04-05 17:08] LABS: FOLATE > 24.0 NG/ML
[2020-04-12 13:08] LABS: VITAMIN B1 LEVEL WHOLE BLOOD 211.2 nmol/L (66.5-200.0); VITAMIN B6,PYRIDOXAL PHOSPHATE 22.2 ug/L (5.3-46.7); VITAMIN E(ALPHA TOCOPHEROL) 13.7 mg/L (9.0-29.0); VITAMIN E(GAMMA TOCOPHEROL) 1.9 mg/L (0.5-4.9)
== END ==
LOC: M WUC 11:42
PROVIDERS: ATTEND Psychiatry & Neurology Neurology
DX: E07.9 Disorder of thyroid, unspecified (principal); R41.3 Other amnesia; Z79.899 Other long term (current) drug therapy

== ENCOUNTER → 2020-04-05 | Outpatient (CLI) | payer MEDICARE, BC ==
[2020-04-05 17:00] LABS: BLOOD UREA NITROGEN 17 MG/DL (7-18); CALCIUM LEVEL 8.9 MG/DL (8.8-10.2); CARBON DIOXIDE LEVEL 28 MEQ/L (21-32); CHLORIDE LEVEL 103 MEQ/L (98-107); CHOLESTEROL LEVEL 113 MG/DL (<200); CHOLESTEROL RISK RATIO 2.897 (<5); CREATININE FOR GFR 1.14 MG/DL (0.70-1.30); GLOMERULAR FILTRATION RATE > 60.0 (>35); GLUCOSE, FASTING 200 MG/DL (70-100); HDL CHOLESTEROL 39 MG/DL (>40); LDL CHOLESTEROL 34 MG/DL (<100); NON-HDL-C 74 MG/DL; POTASSIUM SERUM 3.9 MEQ/L (3.5-5.1); SODIUM LEVEL 139 MEQ/L (136-145); TRIGLYCERIDES LEVEL 199 MG/DL (<150)
== END ==
LOC: M WUC 11:46
PROVIDERS: ATTEND Nurse Practitioner Family
DX: I50.22 Chronic systolic (congestive) heart failure (principal); E11.9 Type 2 diabetes mellitus without complications; Z79.4 Long term (current) use of insulin

== ENCOUNTER → 2020-04-18 | Outpatient (REF) | payer MEDICARE, BC | LOC: M LAB REF 09:12 | PROVIDERS: ATTEND Physician Assistant | DX: C44.629 Squamous cell carcinoma of skin of left upper limb, including shoulder (principal) ==

== ENCOUNTER 2021-03-03 15:15 | Outpatient (RCR) | payer MEDICARE, BC ==
[~2021-03-03 15:15] MED LIST changes: +HYDR-3490 PO; -HYDR25TAB PO; +LISI10TA22 PO; -LISI10TA4 PO
== END 2021-03-04 | disposition still patient (30) ==
LOC: M PT 15:15
PROVIDERS: ATTEND Family Medicine
DX: R26.9 Unspecified abnormalities of gait and mobility (principal)

== ENCOUNTER → 2021-03-14 | Outpatient (CLI) | payer MEDICARE, BC ==
[2021-03-14 10:38] LABS: BASO # 0.1 10^3/uL (0.0-0.2); EOS # 0.3 10^3/uL (0.0-0.5); EOS % 3.8 % (0.0-3.0); HEMATOCRIT 41.1 % (42.0-52.0); HEMOGLOBIN 13.1 g/dl (13.5-17.5); LYMPH # 2.5 10^3/uL (1.5-5.0); MEAN CORPUSCULAR HEMOGLOBIN 30.4 pg (27.0-33.0); MEAN CORPUSCULAR HGB CONC 31.9 g/dl (32.0-36.5); MEAN CORPUSCULAR VOLUME 95.4 fl (80.0-96.0); MONO # 0.7 10^3/uL (0.0-0.8); MONO % 8.4 % (2.0-8.0); NEUTROPHILS # 4.7 10^3/uL (1.5-8.5); NEUTROPHILS % 56.4 % (36.0-66.0); PLATELET COUNT, AUTOMATED 114 10^3/uL (150-450); RED BLOOD COUNT 4.31 10^6/uL (4.30-6.10); WHITE BLOOD COUNT 8.4 10^3/uL (4.0-10.0)
[2021-03-14 11:19] LABS: CREATININE, URINE 59.5 MG/DL; MAU/CREAT RATIO 186.5 MCG/MG (0.0-30.0)
[2021-03-14 11:31] LABS: HEMOGLOBIN A1c 7.4 %
[2021-03-14 12:04] LABS: ALBUMIN 3.8 GM/DL (3.2-5.2); ALT/SGPT 41 U/L (12-78); BILIRUBIN,TOTAL 0.4 MG/DL (0.2-1.0); BLOOD UREA NITROGEN 28 MG/DL (7-18); CALCIUM LEVEL 9.2 MG/DL (8.8-10.2); CARBON DIOXIDE LEVEL 26 MEQ/L (21-32); CHLORIDE LEVEL 108 MEQ/L (98-107); CREATININE FOR GFR 0.98 MG/DL (0.70-1.30); GLOMERULAR FILTRATION RATE > 60.0 (>35); GLUCOSE, FASTING 170 MG/DL (70-100); POTASSIUM SERUM 3.8 MEQ/L (3.5-5.1); SODIUM LEVEL 142 MEQ/L (136-145); TOTAL PROTEIN 7.1 GM/DL (6.4-8.2)
== END ==
LOC: M LAB 09:45
PROVIDERS: ATTEND Family Medicine
DX: I48.91 Unspecified atrial fibrillation (principal); Z95.0 Presence of cardiac pacemaker; I50.30 Unspecified diastolic (congestive) heart failure; M10.9 Gout, unspecified; I69.30 Unspecified sequelae of cerebral infarction; E88.81 Metabolic syndrome and other insulin resistance; E11.65 Type 2 diabetes mellitus with hyperglycemia

== ENCOUNTER 2021-03-29 13:45 | Outpatient (RCR) | payer MEDICARE, BC | END 2021-04-04 | LOC: M PT 13:45 | PROVIDERS: ATTEND Family Medicine | DX: R26.9 Unspecified abnormalities of gait and mobility (principal); I48.91 Unspecified atrial fibrillation; Z95.0 Presence of cardiac pacemaker; I50.30 Unspecified diastolic (congestive) heart failure; M10.9 Gout, unspecified; I69.30 Unspecified sequelae of cerebral infarction; E88.81 Metabolic syndrome and other insulin resistance; M48.00 Spinal stenosis, site unspecified; E11.65 Type 2 diabetes mellitus with hyperglycemia ==

== ENCOUNTER → 2022-06-26 | Outpatient (REF) | payer MEDICARE, BC ==
[2022-06-26 16:59] LABS: BASO # 0.1 10^3/uL (0.0-0.2); BASO % 0.9 % (0.0-1.0); EOS # 0.4 10^3/uL (0.0-0.5); EOS % 3.7 % (0.0-3.0); HEMATOCRIT 41.8 % (42.0-52.0); HEMOGLOBIN 13.4 g/dl (13.5-17.5); LYMPH # 2.3 10^3/uL (1.5-5.0); MEAN CORPUSCULAR HEMOGLOBIN 31.3 pg (27.0-33.0); MEAN CORPUSCULAR HGB CONC 32.1 g/dl (32.0-36.5); MEAN CORPUSCULAR VOLUME 97.7 fl (80.0-96.0); MONO # 1.1 10^3/uL (0.0-0.8); MONO % 9.3 % (2.0-8.0); NEUTROPHILS # 7.5 10^3/uL (1.5-8.5); NEUTROPHILS % 65.7 % (36.0-66.0); PLATELET COUNT, AUTOMATED 155 10^3/uL (150-450); RED BLOOD COUNT 4.28 10^6/uL (4.30-6.10); WHITE BLOOD COUNT 11.3 10^3/uL (4.0-10.0)
[2022-06-26 18:24] LABS: CREATININE, URINE 175.2 MG/DL; MAU/CREAT RATIO 26.8 MCG/MG (0.0-30.0)
[2022-06-26 18:39] LABS: ALBUMIN 3.9 G/DL (3.2-5.2); ALT/SGPT 21 U/L (7.0-40); BILIRUBIN,TOTAL 0.8 MG/DL (0.3-1.2); BLOOD UREA NITROGEN 27 MG/DL (9-23); CARBON DIOXIDE LEVEL 27 MMOL/L (20-31); CHLORIDE LEVEL 99 MMOL/L (98-107); CHOLESTEROL LEVEL 114 MG/DL (<200); CHOLESTEROL RISK RATIO 3.66 (<5); CREATININE FOR GFR 1.13 MG/DL (0.70-1.30); GLOMERULAR FILTRATION RATE > 60.0 (>35); GLUCOSE, FASTING 191 MG/DL (74-106); HDL CHOLESTEROL 31.1 MG/DL (>40); LDL CHOLESTEROL 40.9 MG/DL (<100); MAGNESIUM LEVEL 1.5 MG/DL (1.8-2.4); NON-HDL-C 83 MG/DL; POTASSIUM SERUM 4.3 MMOL/L (3.5-5.1); SODIUM LEVEL 138 MMOL/L (136-145); THYROID STIMULATING HORMONE 2.385 uIU/ML (0.55-4.78); TOTAL PROTEIN 7.2 G/DL (5.7-8.2); TRIGLYCERIDES LEVEL 210 MG/DL (<150)
[2022-06-26 21:22] LABS: HEMOGLOBIN A1c 10.2 % (4.0-6.0)
== END ==
LOC: M WUC 13:03
PROVIDERS: ATTEND Family Medicine
DX: Z00.00 Encounter for general adult medical examination without abnormal findings (principal); I48.91 Unspecified atrial fibrillation; H53.462 Homonymous bilateral field defects, left side; E88.81 Metabolic syndrome and other insulin resistance; M48.00 Spinal stenosis, site unspecified; E11.65 Type 2 diabetes mellitus with hyperglycemia

== ENCOUNTER → 2022-10-03 | Outpatient (CLI) | payer MEDICARE, BC ==
[~2022-10-03] MED LIST changes: -POTA10CA32 PO; +POTA10CA33 PO
[2022-10-03 16:37] LABS: BASO # 0.1 10^3/uL (0.0-0.2); BASO % 0.8 % (0.0-1.0); EOS # 0.3 10^3/uL (0.0-0.5); EOS % 2.9 % (0.0-3.0); HEMATOCRIT 42.1 % (42.0-52.0); HEMOGLOBIN 13.7 g/dl (13.5-17.5); LYMPH # 2.2 10^3/uL (1.5-5.0); LYMPH % 20.7 % (24.0-44.0); MEAN CORPUSCULAR HEMOGLOBIN 31.3 pg (27.0-33.0); MEAN CORPUSCULAR HGB CONC 32.5 g/dl (32.0-36.5); MEAN CORPUSCULAR VOLUME 96.1 fl (80.0-96.0); MONO # 0.8 10^3/uL (0.0-0.8); MONO % 7.8 % (2.0-8.0); NEUTROPHILS # 7.1 10^3/uL (1.5-8.5); NEUTROPHILS % 67.3 % (36.0-66.0); PLATELET COUNT, AUTOMATED 129 10^3/uL (150-450); RED BLOOD COUNT 4.38 10^6/uL (4.30-6.10); WHITE BLOOD COUNT 10.5 10^3/uL (4.0-10.0)
[2022-10-03 16:54] LABS: BLOOD UREA NITROGEN 24 MG/DL (9-23); CALCIUM LEVEL 9.3 MG/DL (8.3-10.6); CARBON DIOXIDE LEVEL 27 MMOL/L (20-31); CHLORIDE LEVEL 100 MMOL/L (98-107); CREATININE FOR GFR 1.01 MG/DL (0.70-1.30); GLOMERULAR FILTRATION RATE > 60.0 (>35); GLUCOSE, FASTING 248 MG/DL (74-106); POTASSIUM SERUM 4.5 MMOL/L (3.5-5.1); SODIUM LEVEL 137 MMOL/L (136-145)
== END ==
LOC: M WUC 14:06
PROVIDERS: ATTEND Family Medicine
DX: I48.91 Unspecified atrial fibrillation (principal); E11.65 Type 2 diabetes mellitus with hyperglycemia

== ENCOUNTER → 2023-02-13 | Outpatient (CLI) | payer MEDICARE, BC ==
[~2023-02-13] MED LIST changes: -POTA10CA33 PO; +POTA10CA60 PO
== END ==
LOC: M RAD 09:36
PROVIDERS: ATTEND Nurse Practitioner Family
DX: I77.810 Thoracic aortic ectasia (principal)

== ENCOUNTER → 2023-03-01 | Outpatient (CLI) | payer MEDICARE, BC ==
[2023-03-01 15:08] LABS: BASO # 0.1 10^3/uL (0.0-0.2); BASO % 0.7 % (0.0-1.0); EOS # 0.3 10^3/uL (0.0-0.5); EOS % 2.6 % (0.0-3.0); HEMATOCRIT 39.8 % (42.0-52.0); HEMOGLOBIN 12.9 g/dl (13.5-17.5); LYMPH # 1.9 10^3/uL (1.5-5.0); LYMPH % 16.4 % (24.0-44.0); MEAN CORPUSCULAR HGB CONC 32.4 g/dl (32.0-36.5); MEAN CORPUSCULAR VOLUME 95.7 fl (80.0-96.0); MONO % 8.5 % (2.0-8.0); NEUTROPHILS # 8.1 10^3/uL (1.5-8.5); NEUTROPHILS % 71.4 % (36.0-66.0); PLATELET COUNT, AUTOMATED 132 10^3/uL (150-450); RED BLOOD COUNT 4.16 10^6/uL (4.30-6.10); WHITE BLOOD COUNT 11.4 10^3/uL (4.0-10.0)
[2023-03-01 15:21] LABS: ALBUMIN 3.9 G/DL (3.2-5.2); ALKALINE PHOSPHATASE 72 U/L (46-116); ALT/SGPT 22 U/L (7.0-40); AST/SGOT 17 U/L (<34); BILIRUBIN,TOTAL 0.8 MG/DL (0.3-1.2); BLOOD UREA NITROGEN 19 MG/DL (9-23); CALCIUM LEVEL 9.3 MG/DL (8.3-10.6); CARBON DIOXIDE LEVEL 27 MMOL/L (20-31); CHLORIDE LEVEL 103 MMOL/L (98-107); CHOLESTEROL LEVEL 119 MG/DL (<200); GLOMERULAR FILTRATION RATE > 60.0 (>35); GLUCOSE, FASTING 150 MG/DL (74-106); LDL CHOLESTEROL 37.4 MG/DL (<100); POTASSIUM SERUM 4.5 MMOL/L (3.5-5.1); SODIUM LEVEL 140 MMOL/L (136-145); TRIGLYCERIDES LEVEL 228 MG/DL (<150)
[2023-03-01 15:25] LABS: URIC ACID 6.2 MG/DL (3.7-9.2)
[2023-03-01 15:38] LABS: HEMOGLOBIN A1c 10.3 % (4.0-6.0)
== END ==
LOC: M LAB 13:32
PROVIDERS: ATTEND Family Medicine
DX: I48.91 Unspecified atrial fibrillation (principal); I50.30 Unspecified diastolic (congestive) heart failure; M10.9 Gout, unspecified; H53.462 Homonymous bilateral field defects, left side; M48.00 Spinal stenosis, site unspecified; E11.65 Type 2 diabetes mellitus with hyperglycemia; J06.9 Acute upper respiratory infection, unspecified; I25.10 Atherosclerotic heart disease of native coronary artery without angina pectoris

== ENCOUNTER → 2023-03-01 | Outpatient (CLI) | payer MEDICARE, BC ==
[2023-03-01 15:07] LABS: HEMATOCRIT 38.9 % (42.0-52.0); HEMOGLOBIN 12.9 g/dl (13.5-17.5); MEAN CORPUSCULAR HEMOGLOBIN 31.2 pg (27.0-33.0); MEAN CORPUSCULAR HGB CONC 33.2 g/dl (32.0-36.5); MEAN CORPUSCULAR VOLUME 94.2 fl (80.0-96.0); PLATELET COUNT, AUTOMATED 132 10^3/uL (150-450); RED BLOOD COUNT 4.13 10^6/uL (4.30-6.10)
[2023-03-01 15:33] LABS: BLOOD UREA NITROGEN 20 MG/DL (9-23); CALCIUM LEVEL 9.2 MG/DL (8.3-10.6); CARBON DIOXIDE LEVEL 27 MMOL/L (20-31); CHLORIDE LEVEL 102 MMOL/L (98-107); CHOLESTEROL LEVEL 120 MG/DL (<200); CHOLESTEROL RISK RATIO 3.29 (<5); CREATININE FOR GFR 1.02 MG/DL (0.70-1.30); GLOMERULAR FILTRATION RATE > 60.0 (>35); GLUCOSE, FASTING 151 MG/DL (74-106); HDL CHOLESTEROL 36.4 MG/DL (>40); LDL CHOLESTEROL 37.8 MG/DL (<100); NON-HDL-C 83.6 MG/DL; POTASSIUM SERUM 4.4 MMOL/L (3.5-5.1); SODIUM LEVEL 139 MMOL/L (136-145); TRIGLYCERIDES LEVEL 229 MG/DL (<150)
== END ==
LOC: M LAB 13:28
PROVIDERS: ATTEND Nurse Practitioner Family
DX: I25.10 Atherosclerotic heart disease of native coronary artery without angina pectoris (principal); I48.21 Permanent atrial fibrillation; I50.9 Heart failure, unspecified

== ENCOUNTER → 2024-01-07 | Outpatient (CLI) | payer MEDICARE, BC ==
[~2024-01-07] MED LIST changes: +HYDR-161 PO; -HYDR10TAB PO; -POTA10CA60 PO; +POTA10CA70 PO; -PREG75CA2; +PREG75CA3
[2024-01-07 16:44] LABS: BASO # 0.1 10^3/uL (0.0-0.2); BASO % 0.7 % (0.0-1.0); EOS # 0.3 10^3/uL (0.0-0.5); EOS % 3.3 % (0.0-3.0); HEMATOCRIT 41.1 % (42.0-52.0); HEMOGLOBIN 13.2 g/dl (13.5-17.5); LYMPH # 2.1 10^3/uL (1.5-5.0); LYMPH % 21.6 % (24.0-44.0); MEAN CORPUSCULAR HEMOGLOBIN 31.4 pg (27.0-33.0); MEAN CORPUSCULAR HGB CONC 32.1 g/dl (32.0-36.5); MEAN CORPUSCULAR VOLUME 97.6 fl (80.0-96.0); MONO % 10.2 % (2.0-8.0); NEUTROPHILS # 6.1 10^3/uL (1.5-8.5); NEUTROPHILS % 63.8 % (36.0-66.0); PLATELET COUNT, AUTOMATED 144 10^3/uL (150-450); RED BLOOD COUNT 4.21 10^6/uL (4.30-6.10); WHITE BLOOD COUNT 9.5 10^3/uL (4.0-10.0)
[2024-01-07 16:59] LABS: ALBUMIN 4.1 G/DL (3.2-5.2); ALKALINE PHOSPHATASE 93 U/L (46-116); ALT/SGPT 23 U/L (7.0-40); AST/SGOT 15 U/L (<34); BILIRUBIN,TOTAL 0.7 MG/DL (0.3-1.2); BLOOD UREA NITROGEN 37 MG/DL (9-23); CALCIUM LEVEL 9.5 MG/DL (8.3-10.6); CARBON DIOXIDE LEVEL 29 MMOL/L (20-31); CHLORIDE LEVEL 104 MMOL/L (98-107); CHOLESTEROL LEVEL 119 MG/DL (<200); CHOLESTEROL RISK RATIO 3.68 (<5); CREATININE FOR GFR 1.21 MG/DL (0.70-1.30); GLOMERULAR FILTRATION RATE > 60.0 (>35); GLUCOSE, FASTING 104 MG/DL (74-106); HDL CHOLESTEROL 32.3 MG/DL (>40); LDL CHOLESTEROL 34.9 MG/DL (<100); MAGNESIUM LEVEL 1.8 MG/DL (1.8-2.4); NON-HDL-C 86.7 MG/DL; POTASSIUM SERUM 4.6 MMOL/L (3.5-5.1); SODIUM LEVEL 140 MMOL/L (136-145); TOTAL PROTEIN 7.2 G/DL (5.7-8.2); TRIGLYCERIDES LEVEL 259 MG/DL (<150)
[2024-01-07 17:48] LABS: HEMOGLOBIN A1c 9.1 % (4.0-6.0)
== END ==
LOC: M WUC 12:16
PROVIDERS: ATTEND Family Medicine
DX: R26.9 Unspecified abnormalities of gait and mobility (principal); I48.91 Unspecified atrial fibrillation; Z95.0 Presence of cardiac pacemaker; M48.00 Spinal stenosis, site unspecified; E11.65 Type 2 diabetes mellitus with hyperglycemia

== ENCOUNTER 2025-02-07 19:04 | Inpatient (IN) | payer MEDICARE, BC ==
[~2025-02-07] VITALS: Ht 175.3 cm; Wt 107.8 kg
[~2025-02-07 19:04] MED LIST changes: +BREO1INH3 INH; +HUMA100I5 INJ; +IRON65TA2 PO; +LANTINJ4 SC; +METO1TAB7; +QUET1TAB17 PO; +SPIR-10 PO; +SUCR1ORA PO; +ZOLO100T PO
[2025-02-07] MEDS: NS (Normal Saline) 0.9% 1,000 ML IV ONE (19:47)
[2025-02-07] MEDS: ACETAMINOPHEN *IV* 1,000 MG in IV 1 EA IV ONE (19:55)
[2025-02-07 20:00] LABS: BASO # 0.0 10^3/uL (0.0-0.2); BASO % 0.2 % (0.0-1.0); EOS # 0.0 10^3/uL (0.0-0.5); EOS % 0.0 % (0.0-3.0); LYMPH # 0.5 10^3/uL (1.5-5.0); LYMPH % 2.3 % (24.0-44.0); MONO # 2.3 10^3/uL (0.0-0.8); MONO % 10.8 % (2.0-8.0); NEUTROPHILS # 18.2 10^3/uL (1.5-8.5); NEUTROPHILS % 85.7 % (36.0-66.0); PLATELET COUNT, AUTOMATED 144 10^3/uL (150-450)
[2025-02-07 20:07] LABS: KETONE, URINE AUTO RFX NEGATIVE (NEGATIVE); LEUKOCYTE ESTERASE UR AUTO RFX NEGATIVE (NEGATIVE); MUCUS, URINE RFX SMALL (NEGATIVE); NITRITE, URINE AUTO RFX NEGATIVE (NEGATIVE); RBC, URINE AUTO RFX 3 /HPF (0-3); SQUAM EPITHELIAL CELL UR AURFX 0 /HPF (0-6); WBC, URINE AUTO RFX 1 /HPF (0-3)
[2025-02-07 20:28] LABS: ALT/SGPT 24.0 U/L (7.0-40); AST/SGOT 27.0 U/L (<34); CALCIUM LEVEL 8.8 MG/DL (8.3-10.6); CARBON DIOXIDE LEVEL 22.0 MMOL/L (20-31); CHLORIDE LEVEL 101.0 MMOL/L (98-107); CK-MB VALUE MASS 1.8 NG/ML (<3.6); CREATININE FOR GFR 1.09 MG/DL (0.70-1.30); GLOMERULAR FILTRATION RATE 66.1 (>35); POTASSIUM SERUM 5.9 MMOL/L (3.5-5.1); SODIUM LEVEL 134.0 MMOL/L (136-145)
[2025-02-07 20:49] LABS: CPK CREATINE PHOSPHOKINASE 110.0 U/L (46-171); MB/CK RELATIVE INDEX 1.63 (< OR =4)
[2025-02-07] MEDS ORDERED: ISOVUE-370 76% 100 ML VIAL As Ordered ONE (20:56)
[2025-02-07] MEDS: PIPERACILLIN/TAZOBACTAM SOD 4.5 GM in DEXTROSE 5% (D5W) ADV/MINI-BAG 50 ML IV ONE (22:09)
[2025-02-07 22:30] LABS: CK-MB VALUE MASS 1.2 NG/ML (<3.6)
[2025-02-07 22:31] LABS: CPK CREATINE PHOSPHOKINASE 99.0 U/L (46-171); MB/CK RELATIVE INDEX 1.21 (< OR =4)
[2025-02-07] MEDS ORDERED: MOM 30 ML SUSPENSION UDC PO PRN (23:10)
[2025-02-07] MEDS: IPRATROPIUM 0.5 MG/ALBUTEROL 2.5 MG INH SOL UD 3 ML NEB ONE (23:39)
[2025-02-07] MEDS ORDERED: GLUCOSE 4 GM CHEW PO PRN (23:45)
[2025-02-07] MEDS ORDERED: GLUCAGON INJ 1 MG VIAL SC PRN (23:45)
[2025-02-07] MEDS ORDERED: DEXTROSE 50% 50 ML SYRINGE IV PRN (23:45)
[2025-02-08] VITALS (27 sets, daily range): BP systolic 104–197; BP diastolic 55–96; TEMP 99–104.2; O2SAT 91–97
[2025-02-08] MEDS: SOD POLYSTYRENE SULFONATE SUSP 15GM 60ML UD PO SCH (00:44)
[2025-02-08] MEDS: DABIGATRAN ETEXILATE 75 MG CAP PO SCH (01:10)
[2025-02-08 03:14] LABS: MAGNESIUM LEVEL 1.3 MG/DL (1.8-2.4); POTASSIUM SERUM 5.2 MMOL/L (3.5-5.1)
[2025-02-08] MEDS: MAG SULF 1GM/100ML (MAG RUN) 1 GM in IV 1 EA IV SCH ×2 (04:17→11:42)
[2025-02-08] MEDS: PIPERACILLIN/TAZOBACTAM SOD 4.5 GM in DEXTROSE 5% (D5W) ADV/MINI-BAG 50 ML IV SCH (04:18)
[2025-02-08 06:52] LABS: PLATELET COUNT, AUTOMATED 121 10^3/uL (150-450)
[2025-02-08 06:57] LABS: ALT/SGPT 31.0 U/L (7.0-40); AST/SGOT 43.0 U/L (<34); CALCIUM LEVEL 8.6 MG/DL (8.3-10.6); CARBON DIOXIDE LEVEL 20.0 MMOL/L (20-31); CHLORIDE LEVEL 97.0 MMOL/L (98-107); CREATININE FOR GFR 1.32 MG/DL (0.70-1.30); GLOMERULAR FILTRATION RATE 52.5 (>35); POTASSIUM SERUM 5.3 MMOL/L (3.5-5.1); SODIUM LEVEL 134.0 MMOL/L (136-145)
[2025-02-08] MEDS: ACETAMINOPHEN *IV* 1,000 MG in IV 1 EA IV ONE (07:20)
[2025-02-08] MEDS ORDERED: VANCOMYCIN HCL 1,000 MG, VIAL MATE ADAPTER 1 EACH in NS 250 ML IV SCH (07:30)
[2025-02-08] MEDS: INSULIN LISPRO (NovoLOG) PER UNIT SC SCH ×3 (07:40→21:00)
[2025-02-08] MEDS: HumuLIN R (REGULAR) INSULIN (NovoLIN R) **100 U/ML** PER UNIT IV STA (07:41)
[2025-02-08] MEDS: VANCOMYCIN HCL 1,000 MG, VIAL MATE ADAPTER 1 EACH in NS 250 ML IV ONE ×2 (07:51→12:29)
[2025-02-08] MEDS: NS (Normal Saline) 0.9% 1,000 ML IV ONE (08:15)
[2025-02-08] MEDS ORDERED: MED REC IN PROGRESS XX SCH (08:30)
[2025-02-08 09:05] LABS: ACETONE/KETONE 0.74 MMOL/L (0.02-0.27)
[2025-02-08] MEDS: DOCUSATE SODIUM 100 MG CAPSULE PO SCH (09:17)
[2025-02-08 09:20] LABS: ABG BASE EXCESS -4.1 (-2.0-2.0); ABG HCO3 19.8 MMOL/L (22.0-26.0); ABG O2 SATURATION 96.6 % (95.0-99.0); ABG PARTIAL PRESSURE CO2 32.1 mmHg (35.0-45.0); ABG PARTIAL PRESSURE O2 90.8 mmHg (75.0-100.0); ABG STANDARD HCO3 21.1 MMOL/L. (22.0-26.0); ABG TOTAL CO2 20.7 MMOL/L (23.0-31.0); ABG pH (ARTERIAL) 7.407 UNITS (7.350-7.450)
[2025-02-08] MEDS: LanTUS (INSULIN GLARGINE INJ) 1 UNITS/0.01 ML SC SCH ×2 (10:11→22:04)
[2025-02-08] MEDS ORDERED: ACET-683 PO (10:39)
[2025-02-08] MEDS ORDERED: ATOR1TAB21 PO (10:39)
[2025-02-08] MEDS ORDERED: LYRI75CA PO (10:39)
[2025-02-08] MEDS ORDERED: PRES10CA2 PO (10:39)
[2025-02-08] MEDS ORDERED: D-101000 PO (10:39)
[2025-02-08] MEDS ORDERED: THERTAB52 PO (10:39)
[2025-02-08] MEDS ORDERED: HOME MED LIST COMPLETE! XX SCH (10:40)
[2025-02-08] MEDS ORDERED: LANS30CA PO (10:43)
[2025-02-08] MEDS: AZITHROMYCIN 250 MG TABLET PO SCH (10:55)
[2025-02-08] MEDS: CEFEPIME HCL 2 GM in DEXTROSE 5% (D5W) ADV/MINI-BAG 50 ML IV SCH (10:55)
[2025-02-08 12:48] LABS: CALCIUM LEVEL 8.2 MG/DL (8.3-10.6); CARBON DIOXIDE LEVEL 21.0 MMOL/L (20-31); CHLORIDE LEVEL 98.0 MMOL/L (98-107); CREATININE FOR GFR 1.36 MG/DL (0.70-1.30); GLOMERULAR FILTRATION RATE 50.7 (>35); POTASSIUM SERUM 4.5 MMOL/L (3.5-5.1); SODIUM LEVEL 135.0 MMOL/L (136-145)
[2025-02-08] MEDS: SYMBICORT 160/4.5MCG INHALER 6GM INH SCH (12:49)
[2025-02-08] MEDS: PREGABALIN 75 MG CAP PO SCH (13:18)
[2025-02-08] MEDS: PANTOPRAZOLE 40MG TAB PO SCH (13:19)
[2025-02-08] MEDS: METOPROLOL TART 50 MG TAB PO SCH (13:19)
[2025-02-08 13:52] LABS: ESTIMATED AVERAGE GLUCOSE 194.0 MG/DL (60-110)
[2025-02-08] MEDS: IPRATROPIUM 0.5 MG/ALBUTEROL 2.5 MG INH SOL UD 3 ML NEB SCH (14:00)
[2025-02-08] MEDS: ACETAMINOPHEN 325 MG TAB PO PRN (17:35)
[2025-02-08] MEDS: PERCOCET 5MG/325MG TAB PO PRN (19:38)
[2025-02-08] MEDS: ASPIRIN 81 MG ENTERIC TABLET PO SCH (22:02)
[2025-02-08] MEDS: ATORVASTATIN 20 MG TAB PO SCH (22:03)
[2025-02-08] MEDS: SERTRALINE 100 MG TAB PO SCH (22:03)
[2025-02-08] MEDS: ceFAZolin SODIUM 2 GM in DEXTROSE 5% (D5W) ADV/MINI-BAG 50 ML IV SCH (22:04)
[2025-02-08] MEDS: IPRATROPIUM 0.5 MG/ALBUTEROL 2.5 MG INH SOL UD 3 ML NEB PRN (23:49)
[2025-02-09] VITALS (32 sets, daily range): BP systolic 107–138; BP diastolic 55–80; TEMP 99–101.5; O2SAT 92–100
[2025-02-09 05:14] LABS: BASO # 0.0 10^3/uL (0.0-0.2); BASO % 0.1 % (0.0-1.0); EOS # 0.0 10^3/uL (0.0-0.5); EOS % 0.0 % (0.0-3.0); LYMPH # 0.8 10^3/uL (1.5-5.0); LYMPH % 3.7 % (24.0-44.0); MONO # 1.6 10^3/uL (0.0-0.8); MONO % 7.8 % (2.0-8.0); NEUTROPHILS # 18.4 10^3/uL (1.5-8.5); NEUTROPHILS % 87.1 % (36.0-66.0); PLATELET COUNT, AUTOMATED 106 10^3/uL (150-450)
[2025-02-09 05:42] LABS: CALCIUM LEVEL 8.2 MG/DL (8.3-10.6); CARBON DIOXIDE LEVEL 23.0 MMOL/L (20-31); CHLORIDE LEVEL 99.0 MMOL/L (98-107); CREATININE FOR GFR 1.38 MG/DL (0.70-1.30); GLOMERULAR FILTRATION RATE 49.8 (>35); MAGNESIUM LEVEL 2.2 MG/DL (1.8-2.4); POTASSIUM SERUM 4.4 MMOL/L (3.5-5.1); SODIUM LEVEL 136.0 MMOL/L (136-145)
[2025-02-09] MEDS: LIDOCAINE 1% MDV 20 ML VIAL SC ONE (07:40)
[2025-02-09] MEDS ORDERED: VANCOMYCIN HCL 1,250 MG, VIAL MATE ADAPTER 1 EACH in NS 250 ML IV SCH (08:00)
[2025-02-09] MEDS: guaiFENesin ER TABLET 600 MG TAB PO SCH (09:00)
[2025-02-09] MEDS: LanTUS (INSULIN GLARGINE INJ) 1 UNITS/0.01 ML SC SCH ×2 (09:35→20:43)
[2025-02-09] MEDS: LEVALBUTEROL 1.25 MG 0.5ML CONCENTRATE NEB INH SCH (13:13)
[2025-02-09] MEDS: SODIUM CHLORIDE HYPERTONIC 3% 4ML NEB SOL INH SCH (13:13)
[2025-02-09] MEDS: PERCOCET 5MG/325MG TAB PO PRN (17:09)
[2025-02-10] VITALS (24 sets, daily range): BP systolic 115–159; BP diastolic 57–74; TEMP 98–99.2; O2SAT 94–98
[2025-02-10 05:42] LABS: BASO # 0.0 10^3/uL (0.0-0.2); BASO % 0.2 % (0.0-1.0); EOS # 0.1 10^3/uL (0.0-0.5); EOS % 0.6 % (0.0-3.0); LYMPH # 0.8 10^3/uL (1.5-5.0); LYMPH % 5.5 % (24.0-44.0); MONO # 1.5 10^3/uL (0.0-0.8); MONO % 9.8 % (2.0-8.0); NEUTROPHILS # 12.5 10^3/uL (1.5-8.5); NEUTROPHILS % 83.3 % (36.0-66.0); PLATELET COUNT, AUTOMATED 110 10^3/uL (150-450)
[2025-02-10 06:06] LABS: CALCIUM LEVEL 8.1 MG/DL (8.3-10.6); CARBON DIOXIDE LEVEL 26.0 MMOL/L (20-31); CHLORIDE LEVEL 99.0 MMOL/L (98-107); CREATININE FOR GFR 1.27 MG/DL (0.70-1.30); GLOMERULAR FILTRATION RATE 55.0 (>35); POTASSIUM SERUM 4.2 MMOL/L (3.5-5.1); SODIUM LEVEL 136.0 MMOL/L (136-145)
[2025-02-10] MEDS: FUROSEMIDE 40 MG/4 ML VIAL IV ONE (09:52)
[2025-02-10] MEDS ORDERED: LIDOCAINE 2% 100 MG/5 ML SDV (FOR ANES.) As Ordered ONE (11:03)
[2025-02-10] MEDS ORDERED: ONDANSETRON 4MG 2ML VIAL As Ordered ONE (11:03)
[2025-02-10] MEDS ORDERED: dexAMETHasone 4 MG/ML 1 ML VIAL As Ordered ONE (11:03)
[2025-02-10] MEDS: MUPIROCIN 2% OINT 22 GM TUBE As Ordered ONE (11:33)
[2025-02-10] MEDS ORDERED: ACETAMINOPHEN 1000MG/100ML IV BAG As Ordered ONE (13:08)
[2025-02-10] MEDS: IPRATROPIUM 0.5 MG/ALBUTEROL 2.5 MG INH SOL UD 3 ML NEB ONE (14:25)
[2025-02-10] MEDS ORDERED: MORPHINE 2 MG/ML 1 ML VIAL IV PRN (14:25)
[2025-02-10] MEDS: ONDANSETRON 4MG 2ML VIAL IV PRN (14:43)
[2025-02-10] MEDS: INSULIN LISPRO (NovoLOG) PER UNIT SC PRN (15:04)
[2025-02-11] VITALS (23 sets, daily range): BP systolic 114–135; BP diastolic 57–73; TEMP 99–99.3; O2SAT 91–96
[2025-02-11 06:47] LABS: BASO # 0.0 10^3/uL (0.0-0.2); BASO % 0.2 % (0.0-1.0); EOS # 0.1 10^3/uL (0.0-0.5); EOS % 0.8 % (0.0-3.0); LYMPH # 0.9 10^3/uL (1.5-5.0); LYMPH % 8.2 % (24.0-44.0); MONO # 1.1 10^3/uL (0.0-0.8); MONO % 10.3 % (2.0-8.0); NEUTROPHILS # 8.9 10^3/uL (1.5-8.5); NEUTROPHILS % 79.9 % (36.0-66.0); PLATELET COUNT, AUTOMATED 123 10^3/uL (150-450)
[2025-02-11 07:08] LABS: CALCIUM LEVEL 8.1 MG/DL (8.3-10.6); CARBON DIOXIDE LEVEL 26.0 MMOL/L (20-31); CHLORIDE LEVEL 103.0 MMOL/L (98-107); CREATININE FOR GFR 1.17 MG/DL (0.70-1.30); GLOMERULAR FILTRATION RATE 60.7 (>35); POTASSIUM SERUM 4.0 MMOL/L (3.5-5.1); SODIUM LEVEL 141.0 MMOL/L (136-145)
[2025-02-11] MEDS: FUROSEMIDE 40 MG TAB PO SCH (10:27)
[2025-02-11] MEDS ORDERED: SODIUM CHLORIDE 0.9% INJ 10 ML SYR IV PRN (14:00)
[2025-02-11] MEDS ORDERED: SODIUM CHLORIDE 0.9% INJ 10 ML SYR IV SCH (18:00)
== END 2025-02-11 16:11 | DRG 853 ==
LOC: EDBD 19:04 → M ED 19:04 → M ED INP 23:08 → M ICU 23:56
PROVIDERS: ADMIT Family Medicine; ATTEND Internal Medicine
PROC: 0X6Q0Z2 Detachment at Right Middle Finger, Mid, Open Approach (ICD-10-PCS; principal; 2025-02-10 12:00)
DX: A41.01 Sepsis due to Methicillin susceptible Staphylococcus aureus (principal); J96.01 Acute respiratory failure with hypoxia; J18.9 Pneumonia, unspecified organism; E11.10 Type 2 diabetes mellitus with ketoacidosis without coma; N17.9 Acute kidney failure, unspecified; J98.11 Atelectasis; I50.30 Unspecified diastolic (congestive) heart failure; M86.241 Subacute osteomyelitis, right hand; I27.20 Pulmonary hypertension, unspecified; I11.0 Hypertensive heart disease with heart failure; F32.A Depression, unspecified; J44.9 Chronic obstructive pulmonary disease, unspecified; E11.40 Type 2 diabetes mellitus with diabetic neuropathy, unspecified; I48.91 Unspecified atrial fibrillation; I25.10 Atherosclerotic heart disease of native coronary artery without angina pectoris; F41.9 Anxiety disorder, unspecified; E83.42 Hypomagnesemia; K21.9 Gastro-esophageal reflux disease without esophagitis; M10.9 Gout, unspecified; G47.33 Obstructive sleep apnea (adult) (pediatric); Z95.0 Presence of cardiac pacemaker; E87.5 Hyperkalemia; E11.69 Type 2 diabetes mellitus with other specified complication; I35.8 Other nonrheumatic aortic valve disorders; Z86.73 Personal history of transient ischemic attack (TIA), and cerebral infarction without residual deficits; Z88.2 Allergy status to sulfonamides; Z79.899 Other long term (current) drug therapy; Z79.4 Long term (current) use of insulin; N40.0 Benign prostatic hyperplasia without lower urinary tract symptoms

== ENCOUNTER 2025-02-11 13:55 | Inpatient (IN) | payer MEDICARE, BC ==
[~2025-02-11] VITALS: Ht 172.7 cm; Wt 108.4 kg
[~2025-02-11 13:55] MED LIST changes: +D-101000 PO; +LANS30CA PO; +PRES10CA2 PO; +THERTAB52 PO
[2025-02-11] MEDS ORDERED: MAALOX 30 ML SUSP *UDC PO PRN (15:00)
[2025-02-11] MEDS ORDERED: SIMETHICONE 80MG CHEW TAB PO PRN (15:00)
[2025-02-11] MEDS ORDERED: BISACODYL 10 MG SUPP PR PRN (15:00)
[2025-02-11] MEDS ORDERED: BISACODYL 5 MG TAB PO PRN (15:00)
[2025-02-11] MEDS ORDERED: ONDANSETRON 4MG ORAL DISINTEGRATING TAB SL PRN (15:20)
[2025-02-11] MEDS ORDERED: GLUCAGON INJ 1 MG VIAL SC PRN (15:20)
[2025-02-11] MEDS ORDERED: DEXTROSE 50% 50 ML SYRINGE IV PRN (15:20)
[2025-02-11] MEDS ORDERED: GLUCOSE 4 GM CHEW PO PRN (15:20)
[2025-02-11 16:20] VITALS: BP 126/67; TEMP 99.4; O2SAT 91
[2025-02-11] MEDS: INSULIN LISPRO (NovoLOG) PER UNIT SC SCH ×2 (17:30→21:00)
[2025-02-11] MEDS: SODIUM CHLORIDE 0.9% INJ 10 ML SYR IV SCH (18:10)
[2025-02-11 18:45] VITALS: TEMP 98.8
[2025-02-11] MEDS: LEVALBUTEROL 1.25 MG 0.5ML CONCENTRATE NEB INH SCH (19:48)
[2025-02-11] MEDS: SODIUM CHLORIDE HYPERTONIC 3% 4ML NEB SOL INH SCH (19:49)
[2025-02-11] MEDS: SYMBICORT 160/4.5MCG INHALER 6GM INH SCH (19:49)
[2025-02-11 20:00] VITALS: BP 140/65; TEMP 97.2; O2SAT 94
[2025-02-11] MEDS: DABIGATRAN ETEXILATE 75 MG CAP PO SCH (21:00)
[2025-02-11] MEDS: guaiFENesin ER TABLET 600 MG TAB PO SCH (21:16)
[2025-02-11] MEDS: ATORVASTATIN 20 MG TAB PO SCH (21:16)
[2025-02-11] MEDS: PREGABALIN 75 MG CAP PO SCH (21:16)
[2025-02-11] MEDS: ASPIRIN 81 MG ENTERIC TABLET PO SCH (21:17)
[2025-02-11] MEDS: METOPROLOL TART 50 MG TAB PO SCH (21:17)
[2025-02-11] MEDS: SERTRALINE 100 MG TAB PO SCH (21:17)
[2025-02-11] MEDS: LanTUS (INSULIN GLARGINE INJ) 1 UNITS/0.01 ML SC SCH (21:18)
[2025-02-11] MEDS: SENNOSIDES/DOCUSATE SODIUM 8.6 MG/50MG TAB PO SCH (21:18)
[2025-02-11] MEDS: ceFAZolin SODIUM 2 GM in DEXTROSE 5% (D5W) ADV/MINI-BAG 50 ML IV SCH (21:18)
[2025-02-12] MEDS: ACETAMINOPHEN 500 MG TAB PO PRN (03:13)
[2025-02-12 04:00] VITALS: BP 139/69; TEMP 98.7; O2SAT 90
[2025-02-12 07:07] LABS: BASO # 0.0 10^3/uL (0.0-0.2); BASO % 0.2 % (0.0-1.0); EOS # 0.1 10^3/uL (0.0-0.5); EOS % 0.5 % (0.0-3.0); LYMPH # 1.1 10^3/uL (1.5-5.0); LYMPH % 10.6 % (24.0-44.0); MONO # 1.3 10^3/uL (0.0-0.8); MONO % 12.2 % (2.0-8.0); NEUTROPHILS # 7.8 10^3/uL (1.5-8.5); NEUTROPHILS % 75.5 % (36.0-66.0); PLATELET COUNT, AUTOMATED 123 10^3/uL (150-450)
[2025-02-12 07:34] LABS: ALT/SGPT 22.0 U/L (7.0-40); AST/SGOT 60.0 U/L (<34); CALCIUM LEVEL 8.3 MG/DL (8.3-10.6); CARBON DIOXIDE LEVEL 27.0 MMOL/L (20-31); CHLORIDE LEVEL 103.0 MMOL/L (98-107); CREATININE FOR GFR 1.14 MG/DL (0.70-1.30); GLOMERULAR FILTRATION RATE 62.6 (>35); POTASSIUM SERUM 4.1 MMOL/L (3.5-5.1); SODIUM LEVEL 140.0 MMOL/L (136-145)
[2025-02-12] MEDS: PANTOPRAZOLE 40MG TAB PO SCH (10:04)
[2025-02-12] MEDS: FERROUS SULFATE 325 MG TAB PO SCH (10:05)
[2025-02-12] MEDS: FUROSEMIDE 40 MG TAB PO SCH (10:05)
[2025-02-12] MEDS: GLIMEPIRIDE 2 MG TAB PO SCH (10:05)
[2025-02-12 12:10] VITALS: BP_SYST 128; BP_DIAS 58; BP_DIAS 59; TEMP 98.1; O2SAT 92
[2025-02-12] MEDS: ACETAMINOPHEN 500 MG TAB PO SCH (13:52)
[2025-02-12 16:39] LABS: KETONE, URINE AUTO RFX NEGATIVE (NEGATIVE); MUCUS, URINE RFX SMALL (NEGATIVE); NITRITE, URINE AUTO RFX NEGATIVE (NEGATIVE); RBC, URINE AUTO RFX 32 /HPF (0-3); SQUAM EPITHELIAL CELL UR AURFX 0 /HPF (0-6); WBC, URINE AUTO RFX 6 /HPF (0-3)
[2025-02-12 16:42] LABS: LEUKOCYTE ESTERASE UR AUTO RFX 1+ (NEGATIVE)
[2025-02-12] MEDS: LIDOCAINE 5% PATCH TD ONE (17:55)
[2025-02-12 20:00] VITALS: BP 137/62; TEMP 97.3; O2SAT 93
[2025-02-12] MEDS: RAMELTEON 8 MG TAB PO SCH (21:50)
[2025-02-12] MEDS: DEXTROMETHORPHAN 60 MG/10 ML SUSP 90 ML BTL PO SCH (22:23)
[2025-02-13] MEDS: IPRATROPIUM 0.5 MG/ALBUTEROL 2.5 MG INH SOL UD 3 ML NEB PRN (03:44)
[2025-02-13] MEDS: BENZONATATE 100 MG CAPSULE PO PRN (03:47)
[2025-02-13 04:00] VITALS: BP 118/58; TEMP 98.5; O2SAT 95
[2025-02-13 06:59] LABS: BASO # 0.0 10^3/uL (0.0-0.2); BASO % 0.3 % (0.0-1.0); EOS # 0.1 10^3/uL (0.0-0.5); EOS % 0.9 % (0.0-3.0); LYMPH # 1.1 10^3/uL (1.5-5.0); LYMPH % 9.4 % (24.0-44.0); MONO # 1.3 10^3/uL (0.0-0.8); MONO % 10.5 % (2.0-8.0); NEUTROPHILS # 9.2 10^3/uL (1.5-8.5); NEUTROPHILS % 77.7 % (36.0-66.0); PLATELET COUNT, AUTOMATED 147 10^3/uL (150-450)
[2025-02-13 07:22] LABS: CALCIUM LEVEL 8.4 MG/DL (8.3-10.6); CARBON DIOXIDE LEVEL 29.0 MMOL/L (20-31); CHLORIDE LEVEL 104.0 MMOL/L (98-107); CREATININE FOR GFR 0.98 MG/DL (0.70-1.30); GLOMERULAR FILTRATION RATE 75.1 (>35); POTASSIUM SERUM 3.7 MMOL/L (3.5-5.1); SODIUM LEVEL 144.0 MMOL/L (136-145)
[2025-02-13] MEDS: guaiFENesin ER TABLET 600 MG TAB PO SCH (07:38)
[2025-02-13] MEDS: LIDOCAINE 5% PATCH TD SCH (07:40)
[2025-02-13 12:00] VITALS: BP 116/56; TEMP 98.5; O2SAT 96
[2025-02-13] MEDS: TAMSULOSIN 0.4 MG CAP PO ONE (12:20)
[2025-02-13 19:50] VITALS: BP 144/75; TEMP 98.6; O2SAT 95
[2025-02-13] MEDS: MOM 30 ML SUSPENSION UDC PO PRN (21:51)
[2025-02-13] MEDS: TAMSULOSIN 0.4 MG CAP PO SCH (21:51)
[2025-02-13] MEDS: LanTUS (INSULIN GLARGINE INJ) 1 UNITS/0.01 ML SC SCH (21:52)
[2025-02-14 03:11] VITALS: BP 121/66; TEMP 98.4; O2SAT 90
[2025-02-14] MEDS: QUEtiapine FUMARATE 12.5 MG HALF-TAB PO PRN (03:11)
[2025-02-14] MEDS: MAGNESIUM OXIDE 400 MG TAB PO SCH (07:54)
[2025-02-14 12:00] VITALS: BP 126/70; TEMP 98.5; O2SAT 97
[2025-02-14 20:00] VITALS: BP 128/73; TEMP 97; O2SAT 96
[2025-02-15] MEDS: PREGABALIN 75 MG CAP PO PRN (01:28)
[2025-02-15 04:00] VITALS: BP 124/63; TEMP 98.4; O2SAT 97
[2025-02-15] MEDS: SODIUM CHLORIDE 0.9% INJ 10 ML SYR IV SCH (06:00)
[2025-02-15] MEDS: HEPARIN LOCK FLUSH 100 UNITS/ML 3 ML SYRINGE IV SCH (06:00)
[2025-02-15] MEDS ORDERED: SODIUM CHLORIDE 0.9% INJ 10 ML SYR IV PRN (10:25)
[2025-02-15] MEDS ORDERED: HEPARIN LOCK FLUSH 100 UNITS/ML 3 ML SYRINGE IV PRN (10:25)
[2025-02-15] MEDS ORDERED: IBUPROFEN 400 MG TAB PO PRN (10:40)
[2025-02-15 11:19] LABS: BASO # 0.0 10^3/uL (0.0-0.2); BASO % 0.4 % (0.0-1.0); EOS # 0.2 10^3/uL (0.0-0.5); EOS % 1.7 % (0.0-3.0); LYMPH # 1.3 10^3/uL (1.5-5.0); LYMPH % 13.2 % (24.0-44.0); MONO # 0.9 10^3/uL (0.0-0.8); MONO % 9.8 % (2.0-8.0); NEUTROPHILS # 6.9 10^3/uL (1.5-8.5); NEUTROPHILS % 72.6 % (36.0-66.0); PLATELET COUNT, AUTOMATED 209 10^3/uL (150-450)
[2025-02-15 11:41] LABS: C REACTIVE PROTEIN QUANTITATIV 7.72 MG/DL (<1.0)
[2025-02-15 11:42] LABS: ALT/SGPT 21.0 U/L (7.0-40); AST/SGOT 54.0 U/L (<34); CALCIUM LEVEL 8.2 MG/DL (8.3-10.6); CARBON DIOXIDE LEVEL 28.0 MMOL/L (20-31); CHLORIDE LEVEL 105.0 MMOL/L (98-107); CREATININE FOR GFR 0.86 MG/DL (0.70-1.30); GLOMERULAR FILTRATION RATE 84.3 (>35); MAGNESIUM LEVEL 1.9 MG/DL (1.8-2.4); POTASSIUM SERUM 3.9 MMOL/L (3.5-5.1); SODIUM LEVEL 144.0 MMOL/L (136-145)
[2025-02-15 12:00] VITALS: BP 136/77; TEMP 99; O2SAT 99
[2025-02-15] MEDS: IBUPROFEN 400 MG TAB PO SCH (13:04)
[2025-02-15] MEDS ORDERED: PILL CUTTER 1 EACH XX PRN (16:00)
[2025-02-15 20:00] VITALS: BP 142/60; TEMP 98.7; O2SAT 94
[2025-02-15] MEDS ORDERED: traZODone 100 MG TAB PO SCH (21:00)
[2025-02-15] MEDS: traZODone 50 MG TAB PO SCH (21:13)
[2025-02-15] MEDS: FAMOTIDINE 20 MG TAB PO SCH (21:13)
[2025-02-16 04:00] VITALS: BP 132/67; TEMP 97.2; O2SAT 96
[2025-02-16 12:00] VITALS: BP 130/71; TEMP 97.6; O2SAT 97
[2025-02-16 14:00] VITALS: O2SAT 92
[2025-02-16] MEDS ORDERED: DEXTROMETHORPHAN 60 MG/10 ML SUSP 90 ML BTL PO PRN (14:15)
[2025-02-16 20:00] VITALS: BP 168/60; TEMP 98; O2SAT 97
[2025-02-16] MEDS: traZODone 50 MG TAB PO SCH (21:12)
[2025-02-17 04:00] VITALS: BP 147/67; TEMP 97.3; O2SAT 94
[2025-02-17 09:00] VITALS: O2SAT 92
[2025-02-17 11:26] VITALS: BP 153/78; TEMP 98; O2SAT 92
[2025-02-17 19:56] VITALS: BP 159/81; TEMP 97.6; O2SAT 95
[2025-02-18 05:29] VITALS: BP 159/63; TEMP 97.5; O2SAT 94
[2025-02-18 12:00] VITALS: BP 164/87; TEMP 98.5; O2SAT 94
[2025-02-18 12:28] VITALS: BP 145/60
[2025-02-18 19:46] VITALS: BP 142/53; TEMP 97.9; O2SAT 94
[2025-02-18] MEDS: busPIRone 5 MG TAB PO SCH (21:41)
[2025-02-19 12:00] VITALS: BP 167/91; TEMP 96.8; O2SAT 94
[2025-02-19 20:00] VITALS: BP 137/75; TEMP 97; O2SAT 95
[2025-02-20 04:00] VITALS: BP 127/62; TEMP 97; O2SAT 96
[2025-02-20 11:49] VITALS: BP 140/79; TEMP 97.2; O2SAT 93
[2025-02-20 20:00] VITALS: BP 165/97; TEMP 97.1; O2SAT 96
[2025-02-20] MEDS: LanTUS (INSULIN GLARGINE INJ) 1 UNITS/0.01 ML SC SCH (21:45)
[2025-02-21 04:00] VITALS: BP 120/78; TEMP 97; O2SAT 94
[2025-02-21 11:47] VITALS: BP 142/81; TEMP 98; O2SAT 93
[2025-02-21 19:36] VITALS: BP 171/87; TEMP 97.9; O2SAT 99
[2025-02-21 21:30] VITALS: BP 152/78
[2025-02-22 06:00] VITALS: BP 131/73; TEMP 97.5; O2SAT 97
[2025-02-22 12:00] VITALS: BP 147/78; TEMP 98.9; O2SAT 96
[2025-02-22] MEDS: PROPRANOLOL 20 MG TAB PO ONE (15:07)
[2025-02-22] MEDS: PROPRANOLOL 20 MG TAB PO SCH (18:58)
[2025-02-22 20:33] VITALS: BP 177/95; TEMP 98.6; O2SAT 97
[2025-02-23 03:30] VITALS: BP 127/78; TEMP 96.8; O2SAT 95
[2025-02-23 12:00] VITALS: BP 156/74; TEMP 97.6; O2SAT 96
[2025-02-23 19:37] VITALS: BP 133/85; TEMP 97.1; O2SAT 94
[2025-02-24 05:40] VITALS: BP 141/76; TEMP 96.9; O2SAT 96
[2025-02-24 11:24] VITALS: BP 143/71; TEMP 98.7; O2SAT 94
[2025-02-24] MEDS: FUROSEMIDE 40 MG TAB PO STA (14:37)
[2025-02-24 20:00] VITALS: BP 139/63; TEMP 98.4; O2SAT 95
[2025-02-25 05:01] VITALS: BP 148/82; TEMP 96.8; O2SAT 95
[2025-02-25 07:27] VITALS: BP 140/74; TEMP 97; O2SAT 92
[2025-02-25 11:58] LABS: BASO # 0.1 10^3/uL (0.0-0.2); BASO % 0.7 % (0.0-1.0); EOS # 0.1 10^3/uL (0.0-0.5); EOS % 0.7 % (0.0-3.0); LYMPH # 0.9 10^3/uL (1.5-5.0); LYMPH % 9.6 % (24.0-44.0); MONO # 0.7 10^3/uL (0.0-0.8); MONO % 8.0 % (2.0-8.0); NEUTROPHILS # 7.3 10^3/uL (1.5-8.5); NEUTROPHILS % 80.6 % (36.0-66.0); PLATELET COUNT, AUTOMATED 126 10^3/uL (150-450)
[2025-02-25 12:04] VITALS: BP 151/77; TEMP 98.4; O2SAT 93
[2025-02-25 12:27] LABS: CALCIUM LEVEL 7.9 MG/DL (8.3-10.6); CARBON DIOXIDE LEVEL 24.0 MMOL/L (20-31); CHLORIDE LEVEL 107.0 MMOL/L (98-107); CREATININE FOR GFR 1.7 MG/DL (0.70-1.30); GLOMERULAR FILTRATION RATE 38.8 (>35); POTASSIUM SERUM 4.3 MMOL/L (3.5-5.1); SODIUM LEVEL 144.0 MMOL/L (136-145)
[2025-02-25] MEDS ORDERED: DELS30LI8 PO (12:44)
[2025-02-25] MEDS ORDERED: RAME8TAB2 PO (12:44)
[2025-02-25] MEDS ORDERED: TRAZ-252 PO (12:44)
[2025-02-25] MEDS ORDERED: LIDO5TD TD (12:44)
[2025-02-25] MEDS ORDERED: METO25TA PO (12:44)
[2025-02-25] MEDS ORDERED: PROP20TA72 PO (12:44)
[2025-02-25] MEDS ORDERED: BACI50OI TOP (12:44)
[2025-02-25] MEDS ORDERED: MAGN400T33 PO (12:44)
[2025-02-25] MEDS ORDERED: PANT40TA29 PO (12:44)
[2025-02-25] MEDS ORDERED: INSULANT SC (12:44)
[2025-02-25] MEDS ORDERED: CEFT2INJ4 IV (12:44)
[2025-02-25] MEDS ORDERED: FAMO20TA PO (12:44)
[2025-02-25] MEDS ORDERED: BUSP5TA PO (12:44)
[2025-02-25] MEDS ORDERED: IBUP-1114 PO (12:44)
[2025-02-25] MEDS ORDERED: INSUHUMDS SC (12:44)
[2025-02-25] MEDS ORDERED: TAMS-18 PO (12:44)
[2025-02-25] MEDS ORDERED: LEVA1.25 INH (12:44)
[2025-02-25 20:00] VITALS: BP 140/81; TEMP 98; O2SAT 95
[2025-02-26 04:00] VITALS: BP 135/75; TEMP 96.4; O2SAT 96
[2025-02-26 05:59] VITALS: BP 135/75
[2025-02-26] MEDS: cefTRIAXone SOD 2 GM in DEXTROSE 5% (D5W) ADV/MINI-BAG 50 ML IV SCH (09:18)
[2025-02-26 12:00] VITALS: BP 162/93; TEMP 97.5; O2SAT 97
[2025-02-26] MEDS ORDERED: INSU100V6 SQ (23:07)
[2025-02-26] MEDS ORDERED: med rec comment (23:13)
== END 2025-02-26 13:45 | DRG 91 ==
LOC: M PM&R 16:20
PROVIDERS: ADMIT Physical Medicine & Rehabilitation; ATTEND Physical Medicine & Rehabilitation
DX: G92.9 Unspecified toxic encephalopathy (principal); J18.9 Pneumonia, unspecified organism; J96.01 Acute respiratory failure with hypoxia; I50.30 Unspecified diastolic (congestive) heart failure; J44.0 Chronic obstructive pulmonary disease with (acute) lower respiratory infection; Z66 Do not resuscitate; E11.42 Type 2 diabetes mellitus with diabetic polyneuropathy; I27.20 Pulmonary hypertension, unspecified; G47.33 Obstructive sleep apnea (adult) (pediatric); I11.0 Hypertensive heart disease with heart failure; I48.91 Unspecified atrial fibrillation; I25.10 Atherosclerotic heart disease of native coronary artery without angina pectoris; I71.40 Abdominal aortic aneurysm, without rupture, unspecified; M19.90 Unspecified osteoarthritis, unspecified site; N40.1 Benign prostatic hyperplasia with lower urinary tract symptoms; M10.9 Gout, unspecified; F32.A Depression, unspecified; Z74.1 Need for assistance with personal care; Z74.09 Other reduced mobility; E66.01 Morbid (severe) obesity due to excess calories; K21.9 Gastro-esophageal reflux disease without esophagitis; Z79.82 Long term (current) use of aspirin; Z79.4 Long term (current) use of insulin; Z79.84 Long term (current) use of oral hypoglycemic drugs; Z79.899 Other long term (current) drug therapy; Z88.2 Allergy status to sulfonamides; I69.398 Other sequelae of cerebral infarction; Z95.0 Presence of cardiac pacemaker; Z68.36 Body mass index [BMI] 36.0-36.9, adult; Z89.021 Acquired absence of right finger(s); T40.2X5A Adverse effect of other opioids, initial encounter; S31.809D Unspecified open wound of unspecified buttock, subsequent encounter; G47.00 Insomnia, unspecified; R33.9 Retention of urine, unspecified; H54.62 Unqualified visual loss, left eye, normal vision right eye; D64.9 Anemia, unspecified; R13.12 Dysphagia, oropharyngeal phase; R00.2 Palpitations; F41.9 Anxiety disorder, unspecified; E11.65 Type 2 diabetes mellitus with hyperglycemia

== ENCOUNTER 2025-02-26 18:26 | Inpatient (IN) | payer MEDICARE, BC ==
[~2025-02-26] VITALS: Ht 172.7 cm; Wt 105.8 kg
[~2025-02-26 18:26] MED LIST changes: +BACI50OI TOP; +BUSP5TA PO; +CEFT2INJ4 IV; +DELS30LI8 PO; +FAMO20TA PO; +IBUP-1114 PO; +INSUHUMDS SC; +INSULANT SC; +LEVA1.25 INH; +LIDO5TD TD; +MAGN400T33 PO; +METO25TA PO; +PANT40TA29 PO; +PROP20TA72 PO; +RAME8TAB2 PO; +TAMS-18 PO; +TRAZ-252 PO
[2025-02-26 19:52] LABS: ABG BASE EXCESS -3.5 (-2.0-2.0); ABG HCO3 21.6 MMOL/L (22.0-26.0); ABG O2 SATURATION 96.3 % (95.0-99.0); ABG PARTIAL PRESSURE CO2 39.3 mmHg (35.0-45.0); ABG PARTIAL PRESSURE O2 84.9 mmHg (75.0-100.0); ABG STANDARD HCO3 21.5 MMOL/L. (22.0-26.0); ABG TOTAL CO2 22.8 MMOL/L (23.0-31.0); ABG pH (ARTERIAL) 7.358 UNITS (7.350-7.450)
[2025-02-26 19:55] LABS: BASO # 0.1 10^3/uL (0.0-0.2); BASO % 0.8 % (0.0-1.0); EOS # 0.1 10^3/uL (0.0-0.5); EOS % 1.3 % (0.0-3.0); LYMPH # 1.1 10^3/uL (1.5-5.0); LYMPH % 12.6 % (24.0-44.0); MONO # 0.8 10^3/uL (0.0-0.8); MONO % 8.7 % (2.0-8.0); NEUTROPHILS # 6.8 10^3/uL (1.5-8.5); NEUTROPHILS % 76.2 % (36.0-66.0); PLATELET COUNT, AUTOMATED 131 10^3/uL (150-450)
[2025-02-26 20:08] LABS: INR 1.98
[2025-02-26 20:18] LABS: ALT/SGPT 9.0 U/L (7.0-40); AST/SGOT 31.0 U/L (<34); CALCIUM LEVEL 7.9 MG/DL (8.3-10.6); CARBON DIOXIDE LEVEL 24.0 MMOL/L (20-31); CHLORIDE LEVEL 109.0 MMOL/L (98-107); CK-MB VALUE MASS 4.6 NG/ML (<3.6); CREATININE FOR GFR 1.61 MG/DL (0.70-1.30); GLOMERULAR FILTRATION RATE 41.4 (>35); POTASSIUM SERUM 4.3 MMOL/L (3.5-5.1); SODIUM LEVEL 146.0 MMOL/L (136-145)
[2025-02-26 20:22] LABS: CPK CREATINE PHOSPHOKINASE 80.0 U/L (46-171); MB/CK RELATIVE INDEX 5.75 (< OR =4)
[2025-02-26] MEDS: FUROSEMIDE 40 MG/4 ML VIAL IV ONE (20:44)
[2025-02-26] MEDS: CEFEPIME HCL 2 GM in DEXTROSE 5% (D5W) ADV/MINI-BAG 50 ML IV ONE (20:48)
[2025-02-26] MEDS ORDERED: LanTUS (INSULIN GLARGINE INJ) 1 UNITS/0.01 ML SC SCH (21:00)
[2025-02-26] MEDS ORDERED: SERTRALINE 100 MG TAB PO SCH (21:00)
[2025-02-26] MEDS ORDERED: FAMOTIDINE 20 MG TAB PO SCH (21:00)
[2025-02-26] MEDS ORDERED: ASPIRIN 81 MG ENTERIC TABLET PO SCH (21:00)
[2025-02-26] MEDS ORDERED: traZODone 50 MG TAB PO SCH (21:00)
[2025-02-26] MEDS ORDERED: RAMELTEON 8 MG TAB PO SCH (21:00)
[2025-02-26] MEDS ORDERED: ATORVASTATIN 20 MG TAB PO SCH (21:00)
[2025-02-26] MEDS ORDERED: TAMSULOSIN 0.4 MG CAP PO SCH (21:00)
[2025-02-26] MEDS ORDERED: INSU100V6 SQ (23:07)
[2025-02-26] MEDS ORDERED: med rec comment (23:13)
[2025-02-26] MEDS ORDERED: HOME MED LIST COMPLETE! XX SCH (23:15)
[2025-02-27] VITALS (7 sets, daily range): BP systolic 130–169; BP diastolic 60–98; TEMP 97.2–97.7; O2SAT 93–96
[2025-02-27] MEDS ORDERED: PREGABALIN 75 MG CAP PO PRN (02:15)
[2025-02-27] MEDS ORDERED: GLUCAGON INJ 1 MG VIAL SC PRN (02:15)
[2025-02-27] MEDS ORDERED: DEXTROSE 50% 50 ML SYRINGE IV PRN (02:15)
[2025-02-27] MEDS ORDERED: GLUCOSE 4 GM CHEW PO PRN (02:15)
[2025-02-27] MEDS ORDERED: DEXTROMETHORPHAN 60 MG/10 ML SUSP 90 ML BTL PO PRN (02:15)
[2025-02-27 02:54] LABS: KETONE, URINE AUTO RFX NEGATIVE (NEGATIVE); LEUKOCYTE ESTERASE UR AUTO RFX TRACE (NEGATIVE); MUCUS, URINE RFX SMALL (NEGATIVE); NITRITE, URINE AUTO RFX NEGATIVE (NEGATIVE); RBC, URINE AUTO RFX 2 /HPF (0-3); SQUAM EPITHELIAL CELL UR AURFX 0 /HPF (0-6); WBC, URINE AUTO RFX 0 /HPF (0-3)
[2025-02-27 05:33] LABS: PLATELET COUNT, AUTOMATED 121 10^3/uL (150-450)
[2025-02-27] MEDS: PROPRANOLOL 20 MG TAB PO SCH (05:59)
[2025-02-27 06:07] LABS: CALCIUM LEVEL 8.2 MG/DL (8.3-10.6); CARBON DIOXIDE LEVEL 26.0 MMOL/L (20-31); CHLORIDE LEVEL 110.0 MMOL/L (98-107); CREATININE FOR GFR 1.56 MG/DL (0.70-1.30); GLOMERULAR FILTRATION RATE 43.0 (>35); POTASSIUM SERUM 3.8 MMOL/L (3.5-5.1); SODIUM LEVEL 149.0 MMOL/L (136-145)
[2025-02-27 07:45] LABS: C REACTIVE PROTEIN QUANTITATIV 0.56 MG/DL (<1.0)
[2025-02-27] MEDS: SYMBICORT 160/4.5MCG INHALER 6GM INH SCH (07:49)
[2025-02-27] MEDS: LEVALBUTEROL 1.25 MG 0.5ML CONCENTRATE NEB INH SCH (07:49)
[2025-02-27] MEDS ORDERED: FUROSEMIDE 40 MG/4 ML VIAL IV SCH (09:00)
[2025-02-27] MEDS ORDERED: SPIRONOLACTONE 25 MG TAB PO SCH (09:00)
[2025-02-27] MEDS ORDERED: metOLazone 2.5 MG TAB PO SCH (09:00)
[2025-02-27] MEDS: INSULIN LISPRO (NovoLOG) PER UNIT SC SCH ×2 (10:24→21:00)
[2025-02-27] MEDS: LanTUS (INSULIN GLARGINE INJ) 1 UNITS/0.01 ML SC SCH (10:24)
[2025-02-27] MEDS: PREGABALIN 75 MG CAP PO SCH (10:25)
[2025-02-27] MEDS: DABIGATRAN ETEXILATE 75 MG CAP PO SCH (10:25)
[2025-02-27] MEDS: PANTOPRAZOLE 40MG TAB PO SCH (10:27)
[2025-02-27] MEDS: busPIRone 5 MG TAB PO SCH (10:27)
[2025-02-27] MEDS: SPIRONOLACTONE 25 MG TAB PO SCH (10:29)
[2025-02-27] MEDS: cefTRIAXone SOD 2 GM in DEXTROSE 5% (D5W) ADV/MINI-BAG 50 ML IV SCH (10:29)
[2025-02-27] MEDS: POTASSIUM CHLORIDE 10MEQ SR TABLET PO SCH (10:57)
[2025-02-27] MEDS: FUROSEMIDE 40 MG/4 ML VIAL IV SCH (12:45)
[2025-02-27] MEDS: FAMOTIDINE 20 MG TAB PO SCH (15:33)
[2025-02-27] MEDS ORDERED: FAMOTIDINE 20 MG TAB PO SCH (21:00)
[2025-02-27] MEDS: SERTRALINE 100 MG TAB PO SCH (21:26)
[2025-02-27] MEDS: ATORVASTATIN 20 MG TAB PO SCH (21:26)
[2025-02-27] MEDS: ASPIRIN 81 MG ENTERIC TABLET PO SCH (21:27)
[2025-02-27] MEDS: TAMSULOSIN 0.4 MG CAP PO SCH (21:27)
[2025-02-27] MEDS: traZODone 50 MG TAB PO SCH (21:27)
[2025-02-28] VITALS (8 sets, daily range): BP systolic 144–168; BP diastolic 76–95; TEMP 97–97.7; O2SAT 93–98
[2025-02-28 06:36] LABS: PLATELET COUNT, AUTOMATED 136 10^3/uL (150-450)
[2025-02-28 07:15] LABS: CALCIUM LEVEL 8.6 MG/DL (8.3-10.6); CARBON DIOXIDE LEVEL 27.0 MMOL/L (20-31); CHLORIDE LEVEL 108.0 MMOL/L (98-107); CREATININE FOR GFR 1.24 MG/DL (0.70-1.30); GLOMERULAR FILTRATION RATE 56.6 (>35); MAGNESIUM LEVEL 1.5 MG/DL (1.8-2.4); POTASSIUM SERUM 4.1 MMOL/L (3.5-5.1); SODIUM LEVEL 147.0 MMOL/L (136-145)
[2025-02-28] MEDS: LanTUS (INSULIN GLARGINE INJ) 1 UNITS/0.01 ML SC SCH (10:25)
[2025-02-28] MEDS: MAGNESIUM OXIDE 400 MG TAB PO SCH (10:26)
[2025-02-28] MEDS: MAG SULF 1GM/100ML (MAG RUN) 1 GM in IV 1 EA IV SCH (10:27)
[2025-02-28] MEDS: NYSTATIN 100,000 UNITS/GM TOPICAL PWD 15 GM TOP SCH (21:35)
[2025-02-28] MEDS: RAMELTEON 8 MG TAB PO PRN (23:51)
[2025-03-01] VITALS (8 sets, daily range): BP systolic 132–176; BP diastolic 60–101; TEMP 96.8–97.3; O2SAT 90–94
[2025-03-01 07:09] LABS: PLATELET COUNT, AUTOMATED 122 10^3/uL (150-450)
[2025-03-01 07:34] LABS: CALCIUM LEVEL 8.9 MG/DL (8.3-10.6); CARBON DIOXIDE LEVEL 30.0 MMOL/L (20-31); CHLORIDE LEVEL 105.0 MMOL/L (98-107); CREATININE FOR GFR 1.16 MG/DL (0.70-1.30); GLOMERULAR FILTRATION RATE 61.3 (>35); POTASSIUM SERUM 4.2 MMOL/L (3.5-5.1); SODIUM LEVEL 148.0 MMOL/L (136-145)
[2025-03-01] MEDS: ACETAMINOPHEN 500 MG TAB PO PRN (07:38)
[2025-03-01] MEDS: FERROUS SULFATE 325 MG TAB PO SCH (08:54)
[2025-03-01] MEDS: FUROSEMIDE 80 MG TAB PO SCH (17:13)
[2025-03-02 04:13] VITALS: BP 164/82; TEMP 97.3; O2SAT 95
[2025-03-02] MEDS: CALCIUM CARBONATE 500 MG CHEW U/D PO PRN (04:14)
[2025-03-02 05:59] LABS: PLATELET COUNT, AUTOMATED 103 10^3/uL (150-450)
[2025-03-02 06:32] LABS: CALCIUM LEVEL 8.8 MG/DL (8.3-10.6); CARBON DIOXIDE LEVEL 32.0 MMOL/L (20-31); CHLORIDE LEVEL 106.0 MMOL/L (98-107); CREATININE FOR GFR 1.07 MG/DL (0.70-1.30); GLOMERULAR FILTRATION RATE 67.6 (>35); POTASSIUM SERUM 4.2 MMOL/L (3.5-5.1); SODIUM LEVEL 149.0 MMOL/L (136-145)
[2025-03-02] MEDS: INSULIN LISPRO (NovoLOG) PER UNIT SC SCH (07:30)
[2025-03-02 07:46] LABS: MAGNESIUM LEVEL 1.8 MG/DL (1.8-2.4)
[2025-03-02 08:00] VITALS: BP 140/80; TEMP 97; O2SAT 92
[2025-03-02] MEDS: LanTUS (INSULIN GLARGINE INJ) 1 UNITS/0.01 ML SC SCH (08:37)
[2025-03-02] MEDS: D5W 1,000 ML IV SCH (10:16)
[2025-03-02] MEDS: FUROSEMIDE 40 MG/4 ML VIAL IV SCH (10:16)
[2025-03-02 12:00] VITALS: BP 140/80; TEMP 97; O2SAT 92
[2025-03-02 19:37] VITALS: BP 136/82; TEMP 97.2; O2SAT 93
[2025-03-03 03:15] VITALS: BP 142/60; TEMP 97.2; O2SAT 95
[2025-03-03 06:31] LABS: CALCIUM LEVEL 8.7 MG/DL (8.3-10.6); CARBON DIOXIDE LEVEL 32.0 MMOL/L (20-31); CHLORIDE LEVEL 102.0 MMOL/L (98-107); CREATININE FOR GFR 1.04 MG/DL (0.70-1.30); GLOMERULAR FILTRATION RATE 69.9 (>35); POTASSIUM SERUM 3.9 MMOL/L (3.5-5.1); SODIUM LEVEL 145.0 MMOL/L (136-145)
[2025-03-03] MEDS ORDERED: FURO40TA2 PO (10:27)
[2025-03-03 12:00] VITALS: BP 163/93; TEMP 97; O2SAT 95
[2025-03-03 12:02] VITALS: BP 164/94
[2025-03-03 12:03] VITALS: BP 164/94
[2025-03-03] MEDS ORDERED: SPIRONOLACTONE 25 MG TAB PO SCH (17:00)
[2025-03-03] MEDS ORDERED: FUROSEMIDE 80 MG TAB PO SCH (17:00)
== END 2025-03-03 14:23 | DRG 291 ==
LOC: M ED 18:26 → EDBD 18:26 → M ED INP 02-27 03:07 → M PCU 02-27 04:26 → M MSPAV 02-27 17:05
PROVIDERS: ADMIT Student in an Organized Health Care Education/Training Program; ATTEND Student in an Organized Health Care Education/Training Program
DX: I13.0 Hypertensive heart and chronic kidney disease with heart failure and stage 1 through stage 4 chronic kidney disease, or unspecified chronic kidney disease (principal); I50.33 Acute on chronic diastolic (congestive) heart failure; M86.141 Other acute osteomyelitis, right hand; N17.9 Acute kidney failure, unspecified; E87.0 Hyperosmolality and hypernatremia; I27.20 Pulmonary hypertension, unspecified; J44.9 Chronic obstructive pulmonary disease, unspecified; F32.A Depression, unspecified; E11.42 Type 2 diabetes mellitus with diabetic polyneuropathy; E11.69 Type 2 diabetes mellitus with other specified complication; I35.8 Other nonrheumatic aortic valve disorders; I48.91 Unspecified atrial fibrillation; I25.10 Atherosclerotic heart disease of native coronary artery without angina pectoris; K57.90 Diverticulosis of intestine, part unspecified, without perforation or abscess without bleeding; Z79.82 Long term (current) use of aspirin; R31.9 Hematuria, unspecified; G47.33 Obstructive sleep apnea (adult) (pediatric); F41.9 Anxiety disorder, unspecified; M10.9 Gout, unspecified; M19.90 Unspecified osteoarthritis, unspecified site; Z95.0 Presence of cardiac pacemaker; R33.9 Retention of urine, unspecified; K21.9 Gastro-esophageal reflux disease without esophagitis; N18.9 Chronic kidney disease, unspecified; Z86.73 Personal history of transient ischemic attack (TIA), and cerebral infarction without residual deficits; N40.0 Benign prostatic hyperplasia without lower urinary tract symptoms; Z96.651 Presence of right artificial knee joint; Z96.642 Presence of left artificial hip joint; Z79.899 Other long term (current) drug therapy; Z79.4 Long term (current) use of insulin; Z88.2 Allergy status to sulfonamides; I71.40 Abdominal aortic aneurysm, without rupture, unspecified; K64.8 Other hemorrhoids; D64.9 Anemia, unspecified; Z66 Do not resuscitate

== ENCOUNTER → 2025-03-08 | Outpatient (REF) ==
[~2025-03-08] MED LIST changes: +INSU100V6 SQ; +med rec comment
[2025-03-08 08:58] LABS: PLATELET COUNT, AUTOMATED 116 10^3/uL (150-450)
[2025-03-08 09:30] LABS: CALCIUM LEVEL 8.8 MG/DL (8.3-10.6); CARBON DIOXIDE LEVEL 36.0 MMOL/L (20-31); CHLORIDE LEVEL 90.0 MMOL/L (98-107); CREATININE FOR GFR 1.2 MG/DL (0.70-1.30); GLOMERULAR FILTRATION RATE 58.9 (>35); POTASSIUM SERUM 3.1 MMOL/L (3.5-5.1); SODIUM LEVEL 139.0 MMOL/L (136-145)
== END ==
LOC: SKLAB2 03-05 07:00
PROVIDERS: ATTEND Internal Medicine
DX: E72.20 Disorder of urea cycle metabolism, unspecified (principal)

== ENCOUNTER → 2025-03-15 | Outpatient (REF) ==
[2025-03-15 11:39] LABS: PLATELET COUNT, AUTOMATED 172 10^3/uL (150-450)
[2025-03-15 12:05] LABS: CALCIUM LEVEL 8.9 MG/DL (8.3-10.6); CARBON DIOXIDE LEVEL 32.0 MMOL/L (20-31); CHLORIDE LEVEL 96.0 MMOL/L (98-107); CREATININE FOR GFR 1.26 MG/DL (0.70-1.30); GLOMERULAR FILTRATION RATE 55.6 (>35); POTASSIUM SERUM 4.6 MMOL/L (3.5-5.1); SODIUM LEVEL 139.0 MMOL/L (136-145)
== END ==
LOC: SKLAB2 07:00
PROVIDERS: ATTEND Internal Medicine
DX: I50.9 Heart failure, unspecified (principal)

== ENCOUNTER → 2025-03-16 | Outpatient (REF) | payer BC, MEDICARE | LOC: M SOG 06:47 → EDSTATUS 08:13 | PROVIDERS: ATTEND Physician Assistant | DX: M86.141 Other acute osteomyelitis, right hand (principal); M79.644 Pain in right finger(s) ==

== ENCOUNTER → 2025-03-16 | Outpatient (REF) ==
[2025-03-16 14:25] LABS: CALCIUM LEVEL 8.9 MG/DL (8.3-10.6); CARBON DIOXIDE LEVEL 30.0 MMOL/L (20-31); CHLORIDE LEVEL 96.0 MMOL/L (98-107); CREATININE FOR GFR 1.06 MG/DL (0.70-1.30); GLOMERULAR FILTRATION RATE 68.4 (>35); POTASSIUM SERUM 4.9 MMOL/L (3.5-5.1); SODIUM LEVEL 137.0 MMOL/L (136-145)
== END ==
LOC: SKLAB2 13:00
PROVIDERS: ATTEND Internal Medicine
DX: E11.65 Type 2 diabetes mellitus with hyperglycemia (principal)

== ENCOUNTER → 2025-03-22 | Outpatient (REF) ==
[2025-03-22 14:22] LABS: PLATELET COUNT, AUTOMATED 159 10^3/uL (150-450)
[2025-03-22 14:54] LABS: CALCIUM LEVEL 9.1 MG/DL (8.3-10.6); CARBON DIOXIDE LEVEL 30.0 MMOL/L (20-31); CHLORIDE LEVEL 97.0 MMOL/L (98-107); CREATININE FOR GFR 1.09 MG/DL (0.70-1.30); GLOMERULAR FILTRATION RATE 66.1 (>35); POTASSIUM SERUM 4.8 MMOL/L (3.5-5.1); SODIUM LEVEL 135.0 MMOL/L (136-145)
== END ==
LOC: SKLAB2 07:00
PROVIDERS: ATTEND Internal Medicine
DX: I50.9 Heart failure, unspecified (principal)

== ENCOUNTER → 2025-03-29 | Outpatient (REF) ==
[2025-03-29 11:17] LABS: CALCIUM LEVEL 9.1 MG/DL (8.3-10.6); CARBON DIOXIDE LEVEL 27.0 MMOL/L (20-31); CHLORIDE LEVEL 97.0 MMOL/L (98-107); CREATININE FOR GFR 1.33 MG/DL (0.70-1.30); GLOMERULAR FILTRATION RATE 52.1 (>35); POTASSIUM SERUM 5.1 MMOL/L (3.5-5.1); SODIUM LEVEL 136.0 MMOL/L (136-145)
== END ==
LOC: SKLAB2 10:00
PROVIDERS: ATTEND Internal Medicine
DX: I50.9 Heart failure, unspecified (principal)

== ENCOUNTER → 2025-04-13 | Outpatient (REF) ==
[2025-04-13 15:43] LABS: CALCIUM LEVEL 9.4 MG/DL (8.3-10.6); CARBON DIOXIDE LEVEL 27.0 MMOL/L (20-31); CHLORIDE LEVEL 97.0 MMOL/L (98-107); CREATININE FOR GFR 1.27 MG/DL (0.70-1.30); GLOMERULAR FILTRATION RATE 55.0 (>35); POTASSIUM SERUM 4.2 MMOL/L (3.5-5.1); SODIUM LEVEL 137.0 MMOL/L (136-145)
== END ==
LOC: SKLAB2 14:03
PROVIDERS: ATTEND Internal Medicine
DX: I50.9 Heart failure, unspecified (principal)

== ENCOUNTER → 2025-04-16 | Outpatient (REF) | payer MEDICARE, BC ==
[2025-04-16 13:11] LABS: CALCIUM LEVEL 9.0 MG/DL (8.3-10.6); CARBON DIOXIDE LEVEL 27.0 MMOL/L (20-31); CHLORIDE LEVEL 98.0 MMOL/L (98-107); CREATININE FOR GFR 1.21 MG/DL (0.70-1.30); GLOMERULAR FILTRATION RATE 58.3 (>35); POTASSIUM SERUM 4.3 MMOL/L (3.5-5.1); SODIUM LEVEL 138.0 MMOL/L (136-145)
== END ==
LOC: SKLAB2 06:56
PROVIDERS: ATTEND Internal Medicine
DX: I50.9 Heart failure, unspecified (principal)

== ENCOUNTER → 2025-04-20 | Outpatient (REF) ==
[2025-04-20 10:50] LABS: CALCIUM LEVEL 8.9 MG/DL (8.3-10.6); CARBON DIOXIDE LEVEL 29.0 MMOL/L (20-31); CHLORIDE LEVEL 99.0 MMOL/L (98-107); CREATININE FOR GFR 1.06 MG/DL (0.70-1.30); GLOMERULAR FILTRATION RATE 68.4 (>35); POTASSIUM SERUM 3.9 MMOL/L (3.5-5.1); SODIUM LEVEL 138.0 MMOL/L (136-145)
== END ==
LOC: SKLAB2 09:31
PROVIDERS: ATTEND Internal Medicine
DX: I50.9 Heart failure, unspecified (principal)

== ENCOUNTER 2025-05-26 11:35 | Emergency (ER) | payer MEDICARE, BC ==
[~2025-05-26] VITALS: Ht 172.7 cm; Wt 103.0 kg
[2025-05-26 11:37] VITALS: TEMP 98.1
[2025-05-26 12:41] LABS: BASO # 0.1 10^3/uL (0.0-0.2); BASO % 0.8 % (0.0-1.0); EOS # 0.2 10^3/uL (0.0-0.5); EOS % 2.5 % (0.0-3.0); LYMPH # 1.3 10^3/uL (1.5-5.0); LYMPH % 13.0 % (24.0-44.0); MONO # 0.8 10^3/uL (0.0-0.8); MONO % 8.7 % (2.0-8.0); NEUTROPHILS # 7.2 10^3/uL (1.5-8.5); NEUTROPHILS % 74.5 % (36.0-66.0); PLATELET COUNT, AUTOMATED 128 10^3/uL (150-450)
[2025-05-26 12:54] LABS: INR 1.84
[2025-05-26 13:00] LABS: CK-MB VALUE MASS 2.7 NG/ML (<3.6)
[2025-05-26 13:04] LABS: FREE T4 1.17 NG/DL (0.89-1.76)
[2025-05-26] MEDS ORDERED: METO25TA PO (13:22)
[2025-05-26] MEDS ORDERED: HOME MED LIST COMPLETE! XX SCH (13:25)
[2025-05-26 13:56] LABS: ALT/SGPT 24.0 U/L (7.0-40); AST/SGOT 41.0 U/L (<34); CALCIUM LEVEL 9.5 MG/DL (8.3-10.6); CARBON DIOXIDE LEVEL 26.0 MMOL/L (20-31); CHLORIDE LEVEL 104.0 MMOL/L (98-107); CREATININE FOR GFR 1.03 MG/DL (0.70-1.30); GLOMERULAR FILTRATION RATE 70.7 (>35); POTASSIUM SERUM 5.0 MMOL/L (3.5-5.1); SODIUM LEVEL 140.0 MMOL/L (136-145)
[2025-05-26 14:02] LABS: CPK CREATINE PHOSPHOKINASE 93.0 U/L (46-171); MB/CK RELATIVE INDEX 2.9 (< OR =4)
[2025-05-26 14:09] LABS: CPK CREATINE PHOSPHOKINASE 73.0 U/L (46-171)
[2025-05-26 14:11] LABS: CK-MB VALUE MASS 2.3 NG/ML (<3.6); MB/CK RELATIVE INDEX 3.15 (< OR =4)
[2025-05-26] MEDS ORDERED: ISOVUE-370 76% 100 ML VIAL As Ordered ONE (14:45)
[2025-05-26 16:11] LABS: CK-MB VALUE MASS 1.9 NG/ML (<3.6)
[2025-05-26 16:18] LABS: CPK CREATINE PHOSPHOKINASE 61.0 U/L (46-171); MB/CK RELATIVE INDEX 3.11 (< OR =4)
[2025-05-26 17:00] VITALS: O2SAT 92
[2025-05-26 17:30] VITALS: O2SAT 95
[2025-05-26 17:31] VITALS: BP 149/74
== END 2025-05-26 17:39 | disposition home or self-care (01) ==
LOC: M ED 11:35
DX: R06.02 Shortness of breath (principal); J90 Pleural effusion, not elsewhere classified; I51.7 Cardiomegaly; J98.11 Atelectasis; I70.90 Unspecified atherosclerosis; E11.9 Type 2 diabetes mellitus without complications; I10 Essential (primary) hypertension; N40.0 Benign prostatic hyperplasia without lower urinary tract symptoms; M10.9 Gout, unspecified; Z86.79 Personal history of other diseases of the circulatory system; Z88.2 Allergy status to sulfonamides; Z79.1 Long term (current) use of non-steroidal anti-inflammatories (NSAID); Z79.52 Long term (current) use of systemic steroids; Z79.899 Other long term (current) drug therapy; Z79.4 Long term (current) use of insulin; Z95.0 Presence of cardiac pacemaker; E11.40 Type 2 diabetes mellitus with diabetic neuropathy, unspecified; M86.9 Osteomyelitis, unspecified
CPT/HCPCS: 36415; 71045; 71275; 80048; 80053; 80076; 82550; 82553; 83036; 83880; 84439; 84443; 84484; 85025; 85610; 85730; 87486; 87581; 87633; 87798; 93005; 93041; 93970; 94760; 99285; Q9967

== ENCOUNTER → 2025-05-26 | Outpatient (REF) | payer MEDICARE, BC ==
[2025-05-26 12:01] LABS: BASO # 0.1 10^3/uL (0.0-0.2); BASO % 1.0 % (0.0-1.0); EOS # 0.3 10^3/uL (0.0-0.5); EOS % 3.3 % (0.0-3.0); LYMPH # 2.0 10^3/uL (1.5-5.0); LYMPH % 24.1 % (24.0-44.0); MONO # 0.8 10^3/uL (0.0-0.8); MONO % 9.5 % (2.0-8.0); NEUTROPHILS # 5.1 10^3/uL (1.5-8.5); NEUTROPHILS % 61.7 % (36.0-66.0); PLATELET COUNT, AUTOMATED 132 10^3/uL (150-450)
[2025-05-26 12:23] LABS: ALT/SGPT 22.0 U/L (7.0-40); AST/SGOT 24.0 U/L (<34); CALCIUM LEVEL 9.8 MG/DL (8.3-10.6); CARBON DIOXIDE LEVEL 27.0 MMOL/L (20-31); CHLORIDE LEVEL 105.0 MMOL/L (98-107); CREATININE FOR GFR 1.05 MG/DL (0.70-1.30); GLOMERULAR FILTRATION RATE 69.1 (>35); POTASSIUM SERUM 4.4 MMOL/L (3.5-5.1); SODIUM LEVEL 143.0 MMOL/L (136-145)
[2025-05-26 17:51] LABS: ESTIMATED AVERAGE GLUCOSE 321.0 MG/DL (60-110)
== END ==
LOC: M LAB REF 11:28
PROVIDERS: ATTEND Family Medicine
DX: Z95.0 Presence of cardiac pacemaker (principal); E11.40 Type 2 diabetes mellitus with diabetic neuropathy, unspecified; M10.9 Gout, unspecified; I10 Essential (primary) hypertension; M86.9 Osteomyelitis, unspecified

== ENCOUNTER → 2025-06-25 | Outpatient (REF) | payer MEDICARE, BC ==
[2025-06-25 15:56] LABS: ESTIMATED AVERAGE GLUCOSE 269.0 MG/DL (60-110)
[2025-06-25 15:57] LABS: BASO # 0.1 10^3/uL (0.0-0.2); BASO % 0.8 % (0.0-1.0); EOS # 0.4 10^3/uL (0.0-0.5); EOS % 3.6 % (0.0-3.0); LYMPH # 2.0 10^3/uL (1.5-5.0); LYMPH % 20.2 % (24.0-44.0); MONO # 1.0 10^3/uL (0.0-0.8); MONO % 9.7 % (2.0-8.0); NEUTROPHILS # 6.5 10^3/uL (1.5-8.5); NEUTROPHILS % 65.3 % (36.0-66.0); PLATELET COUNT, AUTOMATED 149 10^3/uL (150-450)
[2025-06-25 16:12] LABS: CHOLESTEROL LEVEL 183.0 MG/DL (<200); CHOLESTEROL RISK RATIO 5.75 (<5); LDL CHOLESTEROL 110.8 MG/DL (<100); NON-HDL-C 151.2 MG/DL; TRIGLYCERIDES LEVEL 202.0 MG/DL (<150)
[2025-06-28 08:30] LABS: CALCIUM LEVEL 9.4 MG/DL (8.3-10.6); CARBON DIOXIDE LEVEL 30.0 MMOL/L (20-31); CHLORIDE LEVEL 94.0 MMOL/L (98-107); CREATININE FOR GFR 1.59 MG/DL (0.70-1.30); GLOMERULAR FILTRATION RATE 41.8 (>35); POTASSIUM SERUM 3.4 MMOL/L (3.5-5.1); SODIUM LEVEL 138.0 MMOL/L (136-145)
== END ==
LOC: M LAB REF 13:10
PROVIDERS: ATTEND Family Medicine
DX: E11.42 Type 2 diabetes mellitus with diabetic polyneuropathy (principal); I48.91 Unspecified atrial fibrillation; J44.9 Chronic obstructive pulmonary disease, unspecified; R26.9 Unspecified abnormalities of gait and mobility; Z95.0 Presence of cardiac pacemaker; R19.7 Diarrhea, unspecified; R29.6 Repeated falls; E11.65 Type 2 diabetes mellitus with hyperglycemia